=== PATIENT | female | born 1930 | race Hispanic/Latino ===

== ENCOUNTER 2017-12-18 11:33 | Inpatient (IN) | payer MEDICARE ==
[2017-12-18] MEDS ORDERED: NACL 0.9% 500 ML 500 ML IV ONE ×2 (12:01→12:57)
[2017-12-18] MEDS ORDERED: ROCEPHIN/NS 1 GM/50 ML 1 GM/50 ML BAG IV ONE (12:01)
[2017-12-18 12:23] LABS: Hematocrit 38.8 % (30.3-42.9); Hemoglobin 12.9 gm/dl (10.1-14.3); Mean Corpuscular HGB Conc 33 % (30-34); Mean Corpuscular Hemoglobin 30 pg (28-32); Mean Corpuscular Volume 91 fl (79-97); Platelet Count 460 K/mm3 (140-440); Red Blood Count 4.25 M/mm3 (3.65-5.03)
[2017-12-18 12:39] LABS: Alanine Aminotransferase 23 units/L (7-56); BUN/Creatinine Ratio 38; Bilirubin,Direct 0.2 mg/dL (0-0.2); Blood Urea Nitrogen 23 mg/dL (7-17); Hemolysis Index 11
--- NOTE | 2017-12-18 12:41 | XRay Report ---
PORTABLE CHEST INDICATION: Fever, sepsis. COMPARISON: None similar at this institution. FINDINGS: Portable, frontal chest radiograph demonstrates right more than left lower lung opacities/infiltrates, partly obscuring the heart borders. Grossly normal heart size and mediastinal contours. No large pleural effusions. Biapical scarring/pleural thickening. EKG leads. Demineralized bones. CONCLUSION: Right more than left basilar infiltrates/pneumonias, as described. Please also correlate clinically and with prior relevant imaging, if available, to better assess its chronicity/etiology. Thank you for the opportunity to participate in this patient's care.
[2017-12-18] MEDS ORDERED: VANCOMYCIN PHARMACY TO DOSE IV SCH (13:00)
[2017-12-18] MEDS ORDERED: ZOSYN/NS 4.5GM/100ML 4.5 GM/100 ML VIAL IV ONE (13:00)
[2017-12-18] MEDS ORDERED: cefTRIAXone 1 GM in NACL 0.9% 20 ML IV ONE (13:30)
[2017-12-18 13:40] LABS: INR 1.26 (0.87-1.13)
[2017-12-18] MEDS ORDERED: XOPENEX IH ONE (13:54)
[2017-12-18] MEDS ORDERED: VANCOMYCIN/0.45 NS 1 GM/250 ML 1 GM/250 ML BAG IV ONE (14:00)
[2017-12-18 14:05] LABS: Band Neutrophils # (Manual) 1.9 K/mm3; Basophils % (Manual) 0 % (0.0-1.8); Eosinophils % (Manual) 0 % (0.0-4.3); Total Cells Counted 100
[2017-12-18 14:06] LABS: RBC Morphology Normal
[2017-12-18] MEDS ORDERED: NACL 0.9% 1000 ML 1,000 ML IV ONE (14:07)
--- NOTE | 2017-12-18 14:14 | Emergency Department Report ---
ED General Adult HPI - General Chief complaint: Dyspnea/Respdistress Stated complaint: KELLY Time Seen by Provider: 12/18/17 11:56 Source: patient, EMS Mode of arrival: Stretcher Limitations: No Limitations - History of Present Illness Initial comments: Patient states that she was just released from a [facility] on Saturday after one week treatment for pneumonia. She states "my pneumonia and never got any better". She states that she feels very weak and short of breath and she is continuing to cough. She denies chest pain pressure or tightness. She denies leg pain or significant swelling. She states that she is not been told in the past that she has a history of pulmonary embolism, DVT or congestive heart failure. Apparently the patient was found in respiratory distress by medics. They presume that she was in SVT when her prehospital rhythm strips actually demonstrated multifocal atrial tachycardia. They gave her 6 mg of adenosine followed by 12 mg. This did not resolve her tachycardia. She presented to the emergency department and persistent multifocal atrial tachycardia. Her 12-lead EKG her rhythm looks like possible atrial fibrillation. However on her monitor simultaneously she was seen to have a reasonably good P-wave morphology. -: Gradual, week(s) Consistency: constant (denies pain breathing difficulty and cough) Associated Symptoms: cough, shortness of breath, weakness. denies: chest pain, diaphoresis, fever/chills, headaches, syncope Treatments Prior to Arrival: none - Related Data Allergies Allergy/AdvReac Type Severity Reaction Status Date / Time No Known Allergies Allergy Unverified 12/18/17 12:07 ED Review of Systems ROS: Stated complaint: KELLY Other details as noted in HPI Constitutional: weakness Respiratory: cough, shortness of breath Cardiovascular: dyspnea on exertion. denies: chest pain Endocrine: no symptoms reported Gastrointestinal: denies: abdominal pain, nausea Genitourinary: denies: urgency, dysuria Musculoskeletal: denies: back pain, joint swelling Skin: denies: rash, lesions Neurological: denies: headache, weakness, numbness Psychiatric: denies: anxiety, depression Hematological/Lymphatic: denies: easy bleeding, easy bruising ED Past Medical Hx - Past Medical History Previous Medical History?: Yes Hx Hypertension: Yes Hx COPD: Yes Additional medical history: Recent inpatient treatment for pneumonia. Apparently the patient's family told nursing that she has had a prior history of C. difficile but not recently after IV antibiotics. - Social History Smoking Status: Never Smoker Substance Use Type: None ED Physical Exam - General Limitations: No Limitations General appearance: in distress (tachypnea,) - Head Head exam: Present: atraumatic, normocephalic - Eye Eye exam: Present: normal appearance. Absent: scleral icterus - ENT ENT exam: Present: mucous membranes dry - Neck Neck exam: Present: normal inspection. Absent: tenderness, meningismus - Respiratory Respiratory exam: Present: respiratory distress, rhonchi (bilaterally). Absent : accessory muscle use - Cardiovascular Cardiovascular Exam: Present: tachycardia, irregular rhythm. Absent: systolic murmur, diastolic murmur, rubs, gallop - GI/Abdominal GI/Abdominal exam: Present: soft, normal bowel sounds. Absent: distended, tenderness, guarding, rebound, rigid - Extremities Exam Extremities exam: Present: normal capillary refill, other (1+ bilateral pretibial edema). Absent: calf tenderness - Back Exam Back exam: Present: normal inspection. Absent: CVA tenderness (R), CVA tenderness (L) - Neurological Exam Neurological exam: Present: alert, oriented X3, CN II-XII intact. Absent: motor sensory deficit - Psychiatric Psychiatric exam: Present: normal affect, normal mood - Skin Skin exam: Present: warm, dry, intact, normal color. Absent: rash ED Course Vital Signs 12/18/17 12/18/17 12/18/17 11:48 11:50 12:00 Pulse Rate 180 H 188 H Respiratory 48 H 47 H Rate Blood Pressure 133/73 O2 Sat by Pulse 91 89 91 Oximetry 12/18/17 12/18/17 12/18/17 12:10 12:20 12:30 Pulse Rate 146 H 155 H 132 H Respiratory 53 H 47 H 38 H Rate Blood Pressure 115/72 157/51 157/51 O2 Sat by Pulse 91 93 93 Oximetry 12/18/17 12/18/17 12/18/17 12:40 12:50 13:00 Pulse Rate 135 H 130 H 136 H Respiratory 37 H 40 H 49 H Rate Blood Pressure 140/92 153/56 153/56 O2 Sat by Pulse 92 92 94 Oximetry 12/18/17 12/18/17 12/18/17 13:10 13:20 13:30 Pulse Rate 133 H 131 H 146 H Respiratory 51 H 48 H 50 H Rate Blood Pressure 150/58 157/67 150/58 O2 Sat by Pulse 95 97 97 Oximetry 12/18/17 13:40 Pulse Rate 130 H Respiratory 39 H Rate Blood Pressure 146/55 O2 Sat by Pulse 96 Oximetry - Reevaluation(s) Reevaluation #1: The patient was placed on a sepsis pathway immediately after my initial encounter. She is presumed to have healthcare associated pneumonia given 3 antibiotics. Her heart rate is improving with 2 boluses of IV fluids. Her heart is found to be multifocal atrial tachycardia. Her chest x-ray showed right middle right lower and probably left lower lobe pneumonia. She is maintaining her pulse oximetry on nasal cannula. However she is quite tachypnea. In consideration of this I am going to give her a Xopenex and see if there is some benefit. We will check an ABG. I spoke to Dr. Bell is a solutions architect consultant and style advisor concerning the possibility of intensive care placement which looks to be necessary at this time. Dr. Resendiz has arrived in the emergency department and should be attending the patient. 12/18/17 14:19 Reevaluation #2: Patient's arterial blood gas shows a decreased PCO2 and a PO2 in the mid 60s per respiratory. I advised increasing the FiO2. I believe the patient will require nocturnal BiPAP. I spoke to Dr. Bell concerning this and Dr. Resendiz the hospitalist who is admitting this patient. 12/18/17 15:04 ED Medical Decision Making - Lab Data Result diagrams: 12/18/17 12:10 12/18/17 12:10 Laboratory Results - last 24 hr 12/18/17 12/18/17 12/18/17 12:10 12:10 12:10 WBC 24.0 H RBC 4.25 Hgb 12.9 Hct 38.8 MCV 91 MCH 30 MCHC 33 RDW 13.0 L Plt Count 460 H Add Manual Diff Complete Total Counted 100 Seg Neuts % (Manual) 84.0 H Band Neutrophils % 8.0 Lymphocytes % (Manual) 2.0 L Reactive Lymphs % (Man) 0 Monocytes % (Manual) 6.0 Eosinophils % (Manual) 0 Basophils % (Manual) 0 Metamyelocytes % 0 Myelocytes % 0 Promyelocytes % 0 Blast Cells % 0 Nucleated RBC % Not Reportable Seg Neutrophils # Man 20.2 H Band Neutrophils # 1.9 Lymphocytes # (Manual) 0.5 L Abs React Lymphs (Man) 0.0 Monocytes # (Manual) 1.4 H Eosinophils # (Manual) 0.0 Basophils # (Manual) 0.0 Metamyelocytes # 0.0 Myelocytes # 0.0 Promyelocytes # 0.0 Blast Cells # 0.0 WBC Morphology Not Reportable Hypersegmented Neuts Not Reportable Hyposegmented Neuts Not Reportable Hypogranular Neuts Not Reportable Smudge Cells Not Reportable Toxic Granulation Not Reportable Toxic Vacuolation Not Reportable Dohle Bodies Not Reportable Pelger-Huet Anomaly Not Reportable Andrei Rods Not Reportable Platelet Estimate Not Reportable Clumped Platelets Not Reportable Plt Clumps, EDTA Not Reportable Large Platelets Not Reportable Giant Platelets Not Reportable Platelet Satelliting Not Reportable Plt Morphology Comment Not Reportable RBC Morphology Normal Dimorphic RBCs Not Reportable Polychromasia Not Reportable Hypochromasia Not Reportable Poikilocytosis Not Reportable Anisocytosis Not Reportable Microcytosis Not Reportable Macrocytosis Not Reportable Spherocytes Not Reportable Pappenheimer Bodies Not Reportable Sickle Cells Not Reportable Target Cells Not Reportable Tear Drop Cells Not Reportable Ovalocytes Not Reportable Helmet Cells Not Reportable [place] Bodies Not Reportable Printer Rings Not Reportable [place] Cells Not Reportable Bite Cells Not Reportable Crenated Cell Not Reportable Elliptocytes Not Reportable Acanthocytes (Spur) Not Reportable Rouleaux Not Reportable Hemoglobin C Crystals Not Reportable Schistocytes Not Reportable Malaria parasites Not Reportable Chriss Bodies Not Reportable Hem Pathologist Commnt No PT INR VBG pH Sodium 142 Potassium 3.9 Chloride 102.0 Carbon Dioxide 24 Anion Gap 20 BUN 23 H Creatinine 0.6 L Estimated GFR > 60 BUN/Creatinine Ratio 38 Glucose 140 H Lactic Acid 2.20 H* Calcium 8.0 L Magnesium Total Bilirubin 0.50 Direct Bilirubin 0.2 Indirect Bilirubin 0.3 AST 17 ALT 23 Alkaline Phosphatase 75 Total Creatine Kinase CK-MB (CK-2) CK-MB (CK-2) Rel Index Troponin T < 0.010 NT-Pro-B Natriuret Pep Total Protein 5.8 L Albumin 3.0 L Albumin/Globulin Ratio 1.1 Blood Type Antibody Screen 12/18/17 12/18/17 12/18/17 12:10 12:10 12:10 WBC RBC Hgb Hct MCV MCH MCHC RDW Plt Count Add Manual Diff Total Counted Seg Neuts % (Manual) Band Neutrophils % Lymphocytes % (Manual) Reactive Lymphs % (Man) Monocytes % (Manual) Eosinophils % (Manual) Basophils % (Manual) Metamyelocytes % Myelocytes % Promyelocytes % Blast Cells % Nucleated RBC % Seg Neutrophils # Man Band Neutrophils # Lymphocytes # (Manual) Abs React Lymphs (Man) Monocytes # (Manual) Eosinophils # (Manual) Basophils # (Manual) Metamyelocytes # Myelocytes # Promyelocytes # Blast Cells # WBC Morphology Hypersegmented Neuts Hyposegmented Neuts Hypogranular Neuts Smudge Cells Toxic Granulation Toxic Vacuolation Dohle Bodies Pelger-Huet Anomaly Andrei Rods Platelet Estimate Clumped Platelets Plt Clumps, EDTA Large Platelets Giant Platelets Platelet Satelliting Plt Morphology Comment RBC Morphology Dimorphic RBCs Polychromasia Hypochromasia Poikilocytosis Anisocytosis Microcytosis Macrocytosis Spherocytes Pappenheimer Bodies Sickle Cells Target Cells Tear Drop Cells Ovalocytes Helmet Cells [place] Bodies Printer Rings [place] Cells Bite Cells Crenated Cell Elliptocytes Acanthocytes (Spur) Rouleaux Hemoglobin C Crystals Schistocytes Malaria parasites Chriss Bodies Hem Pathologist Commnt PT 16.5 H INR 1.26 H VBG pH Sodium Potassium Chloride Carbon Dioxide Anion Gap BUN Creatinine Estimated GFR BUN/Creatinine Ratio Glucose Lactic Acid Calcium Magnesium 1.60 L Total Bilirubin Direct Bilirubin Indirect Bilirubin AST ALT Alkaline Phosphatase Total Creatine Kinase 21 L CK-MB (CK-2) 2.0 CK-MB (CK-2) Rel Index 9.5 H Troponin T NT-Pro-B Natriuret Pep 1948 H Total Protein Albumin Albumin/Globulin Ratio Blood Type Antibody Screen 12/18/17 12/18/17 12/18/17 12:10 12:10 13:08 WBC RBC Hgb Hct MCV MCH MCHC RDW Plt Count Add Manual Diff Total Counted Seg Neuts % (Manual) Band Neutrophils % Lymphocytes % (Manual) Reactive Lymphs % (Man) Monocytes % (Manual) Eosinophils % (Manual) Basophils % (Manual) Metamyelocytes % Myelocytes % Promyelocytes % Blast Cells % Nucleated RBC % Seg Neutrophils # Man Band Neutrophils # Lymphocytes # (Manual) Abs React Lymphs (Man) Monocytes # (Manual) Eosinophils # (Manual) Basophils # (Manual) Metamyelocytes # Myelocytes # Promyelocytes # Blast Cells # WBC Morphology Hypersegmented Neuts Hyposegmented Neuts Hypogranular Neuts Smudge Cells Toxic Granulation Toxic Vacuolation Dohle Bodies Pelger-Huet Anomaly Andrei Rods Platelet Estimate Clumped Platelets Plt Clumps, EDTA Large Platelets Giant Platelets Platelet Satelliting Plt Morphology Comment RBC Morphology Dimorphic RBCs Polychromasia Hypochromasia Poikilocytosis Anisocytosis Microcytosis Macrocytosis Spherocytes Pappenheimer Bodies Sickle Cells Target Cells Tear Drop Cells Ovalocytes Helmet Cells [place] Bodies Printer Rings [place] Cells Bite Cells Crenated Cell Elliptocytes Acanthocytes (Spur) Rouleaux Hemoglobin C Crystals Schistocytes Malaria parasites Chriss Bodies Hem Pathologist Commnt PT INR VBG pH 7.534 H Sodium Potassium Chloride Carbon Dioxide Anion Gap BUN Creatinine Estimated GFR BUN/Creatinine Ratio Glucose Lactic Acid 1.50 Calcium Magnesium Total Bilirubin Direct Bilirubin Indirect Bilirubin AST ALT Alkaline Phosphatase Total Creatine Kinase CK-MB (CK-2) CK-MB (CK-2) Rel Index Troponin T NT-Pro-B Natriuret Pep Total Protein Albumin Albumin/Globulin Ratio Blood Type O POSITIVE Antibody Screen Negative - EKG Data -: EKG Interpreted by Me Rate: tachycardia - EKG Data Interpretation: other - Radiology Data interpreted by me: Chest x-ray shows infiltrates at least in the right middle and right lower lobe probably left lower lobe as well consistent with multilobar pneumonia Critical Care Time: Yes Critical care time in (mins) excluding proc time.: 60 Critical care attestation.: If time is entered above; I have spent that time in minutes in the direct care of this critically ill patient, excluding procedure time. ED Disposition Clinical Impression: Respiratory distress Sepsis Qualifiers: Sepsis type: sepsis due to unspecified organism Qualified Code(s): A41.9 - Sepsis, unspecified organism Pneumonia Qualifiers: Pneumonia type: due to unspecified organism Laterality: bilateral Lung location : lower lobe of lung Qualified Code(s): J18.9 - Pneumonia, unspecified organism Disposition: OP ADMIT IP TO THIS HOSP Is pt being admited?: Yes Does the pt Need Aspirin: Yes Condition: Stable Instructions: Bacterial Pneumonia (ED) Referrals: PRIMARY CARE, [Primary Care Provider] - 3-5 Days Time of Disposition: 15:06
[2017-12-18] MEDS ORDERED: BABY ASPIRIN PO ONE (15:06)
[2017-12-18 18:51] LABS: Bilirubin,Urine NEG (Negative); Blood,Urine NEG (Negative); Color,Urine Yellow (Yellow); Mucus,Urine FEW /HPF; Urobilinogen,Urine < 2.0 mg/dL (<2.0)
--- NOTE | 2017-12-18 23:39 | Event Note ---
Date: 12/18/17 See dictated H/P in reports Acute resp failure Sinus Tach/SVT Bilateral pneumonia HTN Hypothyroidism hx OF PE
[2017-12-19] MEDS ORDERED: ALUM-MAG HYDROX-SIMETH 200-200-20MG/5ML PO PRN (04:18)
[2017-12-19] MEDS ORDERED: DULCOLAX PR PRN (04:18)
[2017-12-19] MEDS ORDERED: MILK OF MAGNESIA PO PRN (04:18)
[2017-12-19] MEDS ORDERED: MORPHINE IV PRN (04:19)
[2017-12-19] MEDS ORDERED: PERCOCET 5/325 PO PRN (04:19)
[2017-12-19] MEDS ORDERED: DILAUDID IV PRN (04:19)
[2017-12-19] MEDS ORDERED: XANAX PO PRN (04:19)
[2017-12-19] MEDS ORDERED: DUONEB *Not for PRN Use IH (04:54)
[2017-12-19] MEDS ORDERED: PROVENTIL IH PRN (04:55)
[2017-12-19] MEDS ORDERED: VANCOMYCIN/0.45 NS 1 GM/250 ML 1 GM/250 ML BAG IV ONE (05:00)
[2017-12-19] MEDS ORDERED: VANCOMYCIN PHARMACY TO DOSE IV SCH (05:00)
[2017-12-19] MEDS ORDERED: NACL 0.9% 1000 ML 1,000 ML IV SCH (05:00)
[2017-12-19 05:11] LABS: Alanine Aminotransferase 18 units/L (7-56); Albumin 2.4 g/dL (3.9-5); BUN/Creatinine Ratio 23; Blood Urea Nitrogen 16 mg/dL (7-17); Calcium 7.8 mg/dL (8.4-10.2); Hemolysis Index 4
[2017-12-19] MEDS ORDERED: NACL 0.9% 1000 ML 1,000 ML ONE (05:13)
[2017-12-19 05:24] LABS: Hematocrit 34.8 % (30.3-42.9); Hemoglobin 11.4 gm/dl (10.1-14.3); Mean Corpuscular HGB Conc 33 % (30-34); Mean Corpuscular Hemoglobin 30 pg (28-32); Mean Corpuscular Volume 90 fl (79-97); Platelet Count 342 K/mm3 (140-440); Red Blood Count 3.86 M/mm3 (3.65-5.03); Red Cell Distribution Width 13.2 % (13.2-15.2)
[2017-12-19] MEDS: SYNTHROID PO SCH (06:54)
[2017-12-19] MEDS: ZOSYN/NS 4.5GM/100ML 4.5 GM/100 ML VIAL IV SCH ×3 (06:55→22:35)
--- NOTE | 2017-12-19 07:21 | History and Physical Report ---
CHIEF COMPLAINT: Fever, shortness of breath and feeling weak for the last 8-10 days. HISTORY OF PRESENT ILLNESS: An 87-year-old female with recent history of pneumonia, admitted to [facility] from last Saturday to this Saturday for 1 week for pneumonia. The patient was treated for pneumonia for 1 week since 12/09/2017 to 12/16/2017. The patient was discharged on 12/16/2017. The patient continued to do poorly at home and cough present productive of mucoid to yellow sputum. Also, shortness of breath and low-grade fever. Hence, the patient came back to the Emergency Room at [facility]. The patient was also found to be in tachycardia SVT. They gave her adenosine 6 mg which did not do anything to the rhythm. PAST MEDICAL HISTORY: Significant for hypertension, COPD, recent inpatient treatment for pneumonia for 1-week duration, and C. difficile infection recently. PAST SURGICAL HISTORY: Not available. SOCIAL HISTORY: Does not smoke. No alcohol, no recreational drugs. FAMILY HISTORY: Hypertension. REVIEW OF SYSTEMS: GENERAL: Malaise and anorexia present. Loss of appetite present. Feels weak. HEENT: No sore throat, no postnasal drip. CARDIOVASCULAR AND RESPIRATORY: Wheezing and cough present. Also, chest pain on coughing. GASTROINTESTINAL: No nausea, no vomiting, no diarrhea. No GI bleed. GENITOURINARY: No dysuria, no flank pain. MUSCULOSKELETAL: No joint pains. CENTRAL NERVOUS SYSTEM: No syncope, no seizures. ENDOCRINE: No cold intolerance or hot intolerance. No polyphagia or dysphagia. A 14-point review of systems done. PHYSICAL EXAMINATION: GENERAL: Elderly female lying in bed comfortably. VITAL SIGNS: Temperature 98-99. Heart rate is in the 120s to 130s, has come down to 100 during my examination. Blood pressure is 168/66, came down to 147/42, respiratory rate is 20, sats are 95%. HEENT: Unremarkable. Pupils equal and reactive. NECK: Supple, no lymphadenopathy, no thyromegaly. LUNGS: Clear to auscultation and percussion. Good air entry. CARDIOVASCULAR: S1, S2 heard. No gallop, no murmur, no rub. Apical impulse in left fifth intercostal space in the midclavicular line. ABDOMEN: Soft and benign. No hepatosplenomegaly. No guarding, no rigidity. Hernial orifices were normal. EXTREMITIES: Good pedal pulses. No pedal edema. CENTRAL NERVOUS SYSTEM: Alert and oriented x 4, nonfocal exam. SKIN: Normal. LABORATORY DATA: Significant for white count of 24,000, hemoglobin of 12.9, hematocrit of 38.8, platelet count of 460,000. Protime is 16.5, INR is 1.26. ABG significant for pH of 7.487, pCO2 of 32.6, pO2 of 65, of 7.53. Sodium of 142, potassium of 3.9, chloride of 102, bicarbonate of 24, BUN and creatinine is 23 and 0.6, glucose is 140. Lactic acid is 1.5, calcium is 8.0, magnesium is 1.6, total bilirubin 0.5, direct bilirubin 0.2, indirect bilirubin 0.3, AST is 17, ALT is 23. CK is 21. BNP is 1948, total protein is 5.8, albumin is 3.0. Urine is negative. Chest x-ray shows bilateral basilar infiltrates, right more than left. EKG, sinus tachycardia, heart rate of 130 per minute. ASSESSMENT AND PLAN: 1. Sinus tachycardia secondary to sepsis and pneumonia. 2. Acute respiratory failure. The patient on BiPAP. Continue DuoNeb and Solu-Medrol and broad spectrum antibiotics in the form of Zosyn and vancomycin. 3. Bilateral pneumonia. Same as above. DuoNeb and IV Zosyn, vancomycin, Solu-Medrol. 4. Hypertension. Continue diltiazem and lisinopril. 5. Hyperlipidemia. Continue statin. 6. Hypothyroidism. Continue levothyroxine. 7. History of pulmonary embolism. Continue Eliquis 2.5 mg p.o. b.i.d. 8. Deep venous thrombosis prophylaxis. Continue apixaban. No Lovenox at this point. PROGNOSIS: Fair. CRITICAL CARE STATEMENT: The high probability of a clinically significant sudden or life-threatening deterioration of pulmonary, cardiac, and renal systems required my full and direct attention, intervention, and personal management. The aggregate critical care time was 35 minutes. This time was in addition to time spent performing reported procedures but includes the followin. Data review and interpretation. 2. Patient assessment and monitoring of vital signs. 3. Documentation. 4. Medication orders and management. STEPHANIE: 12/19/2017 04:36 JOB# [id number] MEGA/TITI
[2017-12-19 08:02] LABS: Band Neutrophils # (Manual) 0.2 K/mm3; Basophils % (Manual) 0 % (0.0-1.8); Eosinophils % (Manual) 0 % (0.0-4.3); RBC Morphology Normal; Total Cells Counted 100
[2017-12-19] MEDS ORDERED: LOPRESSOR ONE (08:49)
[2017-12-19] MEDS ORDERED: ZESTRIL ONE (08:50)
[2017-12-19] MEDS: CARDIZEM CD PO SCH (09:42)
[2017-12-19] MEDS: ZESTRIL PO SCH (09:43)
[2017-12-19] MEDS: LOPRESSOR PO SCH ×2 (09:43→22:33)
[2017-12-19] MEDS ORDERED: LASIX IV ONE (10:02)
--- NOTE | 2017-12-19 10:44 | Consultation ---
History of Present Illness Consult date: 12/19/17 Requesting physician: GAVIOTA VILLEDA Reason for consult: hypoxemia, pneumonia History of present illness: 87 y/o female, recently discharge from [facility] with a diagnosis of pneumonia on this past Saturday. Per daughter at bedside, patient woke up on Saturday morning in Afib with RVR and worsening shortness of breath. Transported to the ED via EMS. When I spoke to ED, there was no mention of Afib and elevated rate. Patient was started on oxygen and given IV abx. Currently, here in the ICU, rate is controlled and appears to be in sinus. Patient takes dilt and eliquis at home. Per patient pneumonia was in the right lower lobe at [place], which is consistent with here. Pt states that she feels better. Currently on 40% ventimask and stable. Past History Past Medical History: atrial fib, COPD (but per patient, life long nonsmoker), hypertension, hypothyroidism Past Surgical History: Other (none told) Social history: no significant social history Medications and Allergies Allergies Allergy/AdvReac Type Severity Reaction Status Date / Time No Known Allergies Allergy Unverified 12/18/17 12:07 Home Medications Medication Instructions Recorded Confirmed Last Taken Type Apixaban [Eliquis] 2.5 mg PO BID 12/18/17 12/18/17 Unknown History Diltiazem HCl [Diltiazem 24Hr ER] 120 mg PO QDAY 12/18/17 12/18/17 Unknown History Levothyroxine [Synthroid] 50 mcg PO QDAY 12/18/17 12/18/17 Unknown History Lisinopril [Prinivil] 5 mg PO QDAY 12/18/17 12/18/17 Unknown History Metoprolol [Lopressor] 100 mg PO BID 12/18/17 12/18/17 Unknown History Rosuvastatin Calcium [Crestor] 10 mg PO 2XW 12/18/17 12/18/17 Unknown History Active Meds: Active Medications Al Hydrox/Mg Hydrox/Simethicone (Alum-Mag Hydrox-Simeth [id number]/5ml) 30 ml PO Q4H PRN PRN Reason: Indigestion Albuterol (Proventil) 2.5 mg IH Q3HRT PRN PRN Reason: Shortness Of Breath Albuterol/Ipratropium (Duoneb *Not For Prn Use*) 1 ampul IH QIDRT [facility] Alprazolam (Xanax) 0.25 mg PO Q8H PRN PRN Reason: Anxiety Apixaban (Eliquis) 2.5 mg PO BID [facility] PRN Reason: Protocol Atorvastatin Calcium (Lipitor) 20 mg PO Th [facility] Atorvastatin Calcium (Lipitor) 20 mg PO [place] [facility] Bisacodyl (Dulcolax) 10 mg [place] QDAY PRN PRN Reason: constipation unrelieved by MOM Diltiazem HCl (Cardizem Cd) 120 mg PO QDAY [facility] Last Admin: 12/19/17 09:42 Dose: 120 mg Hydromorphone HCl (Dilaudid) 0.5 mg IV Q3H PRN PRN Reason: Pain , Severe (7-10) Piperacillin Sod/Tazobactam Sod (Zosyn/Ns 4.5gm/100ml) 4.5 gm in 100 mls @ 200 mls/hr IV Q8HR [facility] PRN Reason: Protocol Last Admin: 12/19/17 06:55 Dose: 200 mls/hr Vancomycin HCl 750 mg/ Sodium (Chloride) 257.5 mls @ 166.667 mls/hr IV Q12H [facility] Levothyroxine Sodium (Synthroid) 50 mcg PO QDAY@0600 [facility] Last Admin: 12/19/17 06:54 Dose: 50 mcg Lisinopril (Zestril) 5 mg PO QDAY [facility] Last Admin: 12/19/17 09:43 Dose: 5 mg Magnesium Hydroxide (Milk Of Magnesia) 30 ml PO Q4H PRN PRN Reason: Constipation Methylprednisolone Sodium Succinate (Solu-Medrol) 60 mg IV Q8HR [facility] Last Admin: 12/19/17 06:46 Dose: 60 mg Metoprolol Tartrate (Lopressor) 100 mg PO BID [facility] Last Admin: 12/19/17 09:43 Dose: 100 mg Morphine Sulfate (Morphine) 4 mg IV Q4H PRN PRN Reason: Pain , Severe (7-10) Oxycodone/Acetaminophen (Percocet 5/325) 1 tab PO Q6H PRN PRN Reason: Pain, Moderate (4-6) Vancomycin HCl (Vancomycin Pharmacy To Dose) 1 each IV PKCONSULT [facility] PRN Reason: Protocol Review of Systems All systems: negative Physical Examination Vital signs: Vital Signs Pulse Ox 91 12/18/17 11:48 General appearance: no acute distress, alert Eyes: non-icteric ENT: oropharynx moist Neck: supple Effort: mildly labored Ascultation: Bilateral: rales, rhonchi Percussion: Bilateral: not dull Tactile fremitus: Bilateral: normal Cardiovascular: regular rate and rhythm Gastrointestinal: normoactive bowel sounds, soft, non-tender Extremities: edema Musculoskeletal: no deformities normal mental status, non-focal exam mood appropriate, affect normal Results - Laboratory Findings CBC and BMP: 12/19/17 04:36 12/19/17 04:36 ABG POC ABG pH 7.487 (7.35-7.45) H 12/18/17 14:30 POC ABG pCO2 32.6 (35-45) L 12/18/17 14:30 POC ABG pO2 65 (80-105) L 12/18/17 14:30 POC ABG HCO3 24.7 12/18/17 14:30 POC ABG Total CO2 26 12/18/17 14:30 POC ABG O2 Sat 94 12/18/17 14:30 PT/INR, D-dimer PT 16.5 Sec. (12.2-14.9) H 12/18/17 12:10 INR 1.26 (0.87-1.13) H 12/18/17 12:10 Abnormal lab findings: Abnormal Labs 12/18/17 12/18/17 12/18/17 12:10 12:10 12:10 WBC 24.0 H RDW 13.0 L Plt Count 460 H Seg Neuts % (Manual) 84.0 H Lymphocytes % (Manual) 2.0 L Seg Neutrophils # Man 20.2 H Lymphocytes # (Manual) 0.5 L Monocytes # (Manual) 1.4 H PT INR POC ABG pH POC ABG pCO2 POC ABG pO2 VBG pH BUN 23 H Creatinine 0.6 L Glucose 140 H Lactic Acid 2.20 H* Calcium 8.0 L Magnesium Total Creatine Kinase CK-MB (CK-2) Rel Index NT-Pro-B Natriuret Pep Total Protein 5.8 L Albumin 3.0 L 12/18/17 12/18/17 12/18/17 12:10 12:10 12:10 WBC RDW Plt Count Seg Neuts % (Manual) Lymphocytes % (Manual) Seg Neutrophils # Man Lymphocytes # (Manual) Monocytes # (Manual) PT 16.5 H INR 1.26 H POC ABG pH POC ABG pCO2 POC ABG pO2 VBG pH BUN Creatinine Glucose Lactic Acid Calcium Magnesium 1.60 L Total Creatine Kinase 21 L CK-MB (CK-2) Rel Index 9.5 H NT-Pro-B Natriuret Pep 1948 H Total Protein Albumin 12/18/17 12/18/17 12/19/17 12:10 14:30 04:36 WBC 20.3 H RDW Plt Count Seg Neuts % (Manual) 90.0 H Lymphocytes % (Manual) 5.0 L Seg Neutrophils # Man 18.3 H Lymphocytes # (Manual) 1.0 L Monocytes # (Manual) PT INR POC ABG pH 7.487 H POC ABG pCO2 32.6 L POC ABG pO2 65 L VBG pH 7.534 H BUN Creatinine Glucose Lactic Acid Calcium Magnesium Total Creatine Kinase CK-MB (CK-2) Rel Index NT-Pro-B Natriuret Pep Total Protein Albumin 12/19/17 04:36 WBC RDW Plt Count Seg Neuts % (Manual) Lymphocytes % (Manual) Seg Neutrophils # Man Lymphocytes # (Manual) Monocytes # (Manual) PT INR POC ABG pH POC ABG pCO2 POC ABG pO2 VBG pH BUN Creatinine Glucose Lactic Acid Calcium 7.8 L Magnesium Total Creatine Kinase CK-MB (CK-2) Rel Index NT-Pro-B Natriuret Pep Total Protein 6.2 L Albumin 2.4 L - Diagnostic Findings Chest x-ray: image reviewed (right lower lobe infiltrate, chronic appearing changes throughout the rest of the lung) Assessment and Plan 87 y/o female with afib with RVR, subsequent fluid overload with right lower lobe infiltrate, residual pneumonia from prior diagnosis. 1. Lasix 20mg IV x1 2. Place n[facility] 3. Obtain sputum culture 4. Agree with broad spec abx therapy given recent hospital stay 5. Suggest a consult to [facility] heart so that records can be reviewed as home med list shows BB and CCB for rate control 6. Anticoagulation 7. Stable for transfer to [facility] if tolerates lasix therapy with no issues
[2017-12-19] MEDS: DUONEB *Not for PRN Use IH SCH ×4 (11:13→19:27)
[2017-12-19] MEDS: ELIQUIS PO SCH ×2 (11:47→22:20)
[2017-12-19] MEDS ORDERED: VANCOMYCIN/0.45 NS 1 GM/250 ML 1 GM/250 ML BAG IV SCH (14:00)
[2017-12-19] MEDS ORDERED: VANCOMYCIN IV SCH (18:00)
[2017-12-19] MEDS ORDERED: NACL 0.45% IV SCH (18:00)
--- NOTE | 2017-12-19 18:34 | Progress Note ---
Assessment and Plan Assessment and plan: --A. fib with rapid ventricular rate; on admission Noted controlled, continue Cardizem, beta blockers, Eliquis Cardiology evaluation --Right lower lobe pneumonia; continue current antibiotics, follow cultures Pulmonary following, probably residual pneumonia from recent illness --Hypertension; moderate control, continue current antihypertensives and when necessary medications --Dyslipidemia; stable on lipid-lowering medications --History of hypothyroidism; continue Synthroid, --Full CODE STATUS --DVT prophylaxis patient is already on Eliquis Closely monitor the patient, if stable next couple of hrs, will transfer out of ICU Plan of care is reviewed with the patient, family members at the bedside and her nurse I also discussed the case with laborer airport maintenance Dr. Bell Critical care time 35 minutes History Interval history: Patient seen and evaluated medical records reviewed Patient's heart rate is within normal limits Denies chest pain shortness of breath and cough Denies palpitations Patient is comfortable alert and oriented 3 Vital signs reviewed Hospitalist Physical - Constitutional Vitals: Temp Pulse Resp BP Pulse Ox 63 20 152/93 89 12/19/17 15:30 12/19/17 15:30 12/19/17 10:42 12/19/17 09:01 General appearance: Present: no acute distress, well-nourished - EENT Eyes: Present: PERRL, EOM intact - Neck Neck: Present: supple, normal ROM - Respiratory Respiratory effort: normal Respiratory: bilateral: diminished, negative: rales, rhonchi, wheezing - Cardiovascular Rhythm: irregularly irregular Heart Sounds: Present: S1 & S2 - Extremities Extremities: no ischemia, No edema - Abdominal General gastrointestinal: soft, non-tender, non-distended, normal bowel sounds - Integumentary Integumentary: Present: clear, warm - Psychiatric Psychiatric: appropriate mood/affect, cooperative - Neurologic Neurologic: CNII-XII intact, moves all extremities Results - Labs CBC & Chem 7: 12/19/17 04:36 12/19/17 04:36 Labs: Laboratory Last Values WBC 20.3 K/mm3 (4.5-11.0) H 12/19/17 04:36 RBC 3.86 M/mm3 (3.65-5.03) 12/19/17 04:36 Hgb 11.4 gm/dl (10.1-14.3) 12/19/17 04:36 Hct 34.8 % (30.3-42.9) 12/19/17 04:36 MCV 90 fl (79-97) 12/19/17 04:36 MCH 30 pg (28-32) 12/19/17 04:36 MCHC 33 % (30-34) 12/19/17 04:36 RDW 13.2 % (13.2-15.2) 12/19/17 04:36 Plt Count 342 K/mm3 (140-440) 12/19/17 04:36 Add Manual Diff Complete 12/19/17 04:36 Total Counted 100 12/19/17 04:36 Seg Neuts % (Manual) 90.0 % (40.0-70.0) H 12/19/17 04:36 Band Neutrophils % 1.0 % 12/19/17 04:36 Lymphocytes % (Manual) 5.0 % (13.4-35.0) L 12/19/17 04:36 Reactive Lymphs % (Man) 0 % 12/19/17 04:36 Monocytes % (Manual) 4.0 % (0.0-7.3) 12/19/17 04:36 Eosinophils % (Manual) 0 % (0.0-4.3) 12/19/17 04:36 Basophils % (Manual) 0 % (0.0-1.8) 12/19/17 04:36 Metamyelocytes % 0 % 12/19/17 04:36 Myelocytes % 0 % 12/19/17 04:36 Promyelocytes % 0 % 12/19/17 04:36 Blast Cells % 0 % 12/19/17 04:36 Nucleated RBC % Not Reportable 12/19/17 04:36 Seg Neutrophils # Man 18.3 K/mm3 (1.8-7.7) H 12/19/17 04:36 Band Neutrophils # 0.2 K/mm3 12/19/17 04:36 Lymphocytes # (Manual) 1.0 K/mm3 (1.2-5.4) L 12/19/17 04:36 Abs React Lymphs (Man) 0.0 K/mm3 12/19/17 04:36 Monocytes # (Manual) 0.8 K/mm3 (0.0-0.8) 12/19/17 04:36 Eosinophils # (Manual) 0.0 K/mm3 (0.0-0.4) 12/19/17 04:36 Basophils # (Manual) 0.0 K/mm3 (0.0-0.1) 12/19/17 04:36 Metamyelocytes # 0.0 K/mm3 12/19/17 04:36 Myelocytes # 0.0 K/mm3 12/19/17 04:36 Promyelocytes # 0.0 K/mm3 12/19/17 04:36 Blast Cells # 0.0 K/mm3 12/19/17 04:36 WBC Morphology Not Reportable 12/19/17 04:36 Hypersegmented Neuts Not Reportable 12/19/17 04:36 Hyposegmented Neuts Not Reportable 12/19/17 04:36 Hypogranular Neuts Not Reportable 12/19/17 04:36 Smudge Cells Not Reportable 12/19/17 04:36 Toxic Granulation Not Reportable 12/19/17 04:36 Toxic Vacuolation Not Reportable 12/19/17 04:36 Dohle Bodies Not Reportable 12/19/17 04:36 Pelger-Huet Anomaly Not Reportable 12/19/17 04:36 Andrei Rods Not Reportable 12/19/17 04:36 Platelet Estimate Not Reportable 12/19/17 04:36 Clumped Platelets Not Reportable 12/19/17 04:36 Plt Clumps, EDTA Not Reportable 12/19/17 04:36 Large Platelets Not Reportable 12/19/17 04:36 Giant Platelets Not Reportable 12/19/17 04:36 Platelet Satelliting Not Reportable 12/19/17 04:36 Plt Morphology Comment Not Reportable 12/19/17 04:36 RBC Morphology Normal 12/19/17 04:36 Dimorphic RBCs Not Reportable 12/19/17 04:36 Polychromasia Not Reportable 12/19/17 04:36 Hypochromasia Not Reportable 12/19/17 04:36 Poikilocytosis Not Reportable 12/19/17 04:36 Anisocytosis Not Reportable 12/19/17 04:36 Microcytosis Not Reportable 12/19/17 04:36 Macrocytosis Not Reportable 12/19/17 04:36 Spherocytes Not Reportable 12/19/17 04:36 Pappenheimer Bodies Not Reportable 12/19/17 04:36 Sickle Cells Not Reportable 12/19/17 04:36 Target Cells Not Reportable 12/19/17 04:36 Tear Drop Cells Not Reportable 12/19/17 04:36 Ovalocytes Not Reportable 12/19/17 04:36 Helmet Cells Not Reportable 12/19/17 04:36 [place] Bodies Not Reportable 12/19/17 04:36 [place] Rings Not Reportable 12/19/17 04:36 Rigo Cells Not Reportable 12/19/17 04:36 Bite Cells Not Reportable 12/19/17 04:36 Crenated Cell Not Reportable 12/19/17 04:36 Elliptocytes Not Reportable 12/19/17 04:36 Acanthocytes (Spur) Not Reportable 12/19/17 04:36 Rouleaux Not Reportable 12/19/17 04:36 Hemoglobin C Crystals Not Reportable 12/19/17 04:36 Schistocytes Not Reportable 12/19/17 04:36 Malaria parasites Not Reportable 12/19/17 04:36 Chriss Bodies Not Reportable 12/19/17 04:36 Hem Pathologist Commnt No 12/19/17 04:36 PT 16.5 Sec. (12.2-14.9) H 12/18/17 12:10 INR 1.26 (0.87-1.13) H 12/18/17 12:10 POC ABG pH 7.487 (7.35-7.45) H 12/18/17 14:30 POC ABG pCO2 32.6 (35-45) L 12/18/17 14:30 POC ABG pO2 65 (80-105) L 12/18/17 14:30 POC ABG HCO3 24.7 12/18/17 14:30 POC ABG Total CO2 26 12/18/17 14:30 POC ABG O2 Sat 94 12/18/17 14:30 POC ABG Base Excess 1 12/18/17 14:30 VBG pH 7.534 (7.320-7.420) H 12/18/17 12:10 FiO2 28 % 12/18/17 14:30 Sodium 141 mmol/L (137-145) 12/19/17 04:36 Potassium 3.6 mmol/L (3.6-5.0) 12/19/17 04:36 Chloride 102.8 mmol/L (98-107) 12/19/17 04:36 Carbon Dioxide 24 mmol/L (22-30) 12/19/17 04:36 Anion Gap 18 mmol/L 12/19/17 04:36 BUN 16 mg/dL (7-17) 12/19/17 04:36 Creatinine 0.7 mg/dL (0.7-1.2) 12/19/17 04:36 Estimated GFR > 60 ml/min 12/19/17 04:36 BUN/Creatinine Ratio 23 % 12/19/17 04:36 Glucose 100 mg/dL (65-100) 12/19/17 04:36 Lactic Acid 1.00 mmol/L (0.7-2.0) 12/19/17 04:36 Calcium 7.8 mg/dL (8.4-10.2) L 12/19/17 04:36 Magnesium 1.60 mg/dL (1.7-2.3) L 12/18/17 12:10 Total Bilirubin 0.50 mg/dL (0.1-1.2) 12/19/17 04:36 Direct Bilirubin 0.2 mg/dL (0-0.2) 12/18/17 12:10 Indirect Bilirubin 0.3 mg/dL 12/18/17 12:10 AST 18 units/L (5-40) 12/19/17 04:36 ALT 18 units/L (7-56) 12/19/17 04:36 Alkaline Phosphatase 72 units/L (35-129) 12/19/17 04:36 Total Creatine Kinase 21 units/L (30-135) L 12/18/17 12:10 CK-MB (CK-2) 2.0 ng/mL (0.0-4.0) 12/18/17 12:10 CK-MB (CK-2) Rel Index 9.5 (0-4) H 12/18/17 12:10 Troponin T < 0.010 ng/mL (0.00-0.029) 12/18/17 12:10 NT-Pro-B Natriuret Pep 1948 pg/mL (0-900) H 12/18/17 12:10 Total Protein 6.2 g/dL (6.3-8.2) L 12/19/17 04:36 Albumin 2.4 g/dL (3.9-5) L 12/19/17 04:36 Albumin/Globulin Ratio 0.6 % 12/19/17 04:36 Urine Color Yellow (Yellow) 12/18/17 18:35 Urine Turbidity Clear (Clear) 12/18/17 18:35 Urine pH 5.0 (5.0-7.0) 12/18/17 18:35 Ur Specific Eva 1.021 (1.003-1.030) 12/18/17 18:35 Urine Protein 30 mg/dl mg/dL (Negative) 12/18/17 18:35 Urine Glucose (UA) Neg mg/dL (Negative) 12/18/17 18:35 Urine Ketones Tr mg/dL (Negative) 12/18/17 18:35 Urine Blood Neg (Negative) 12/18/17 18:35 Urine Nitrite Neg (Negative) 12/18/17 18:35 Urine Bilirubin Neg (Negative) 12/18/17 18:35 Urine Urobilinogen < 2.0 mg/dL (<2.0) 12/18/17 18:35 Ur Leukocyte Esterase Neg (Negative) 12/18/17 18:35 Urine WBC (Auto) 2.0 /HPF (0.0-6.0) 12/18/17 18:35 Urine RBC (Auto) 5.0 /HPF (0.0-6.0) 12/18/17 18:35 U Epithel Cells (Auto) < 1.0 /HPF (0-13.0) 12/18/17 18:35 Urine Mucus Few /HPF 12/18/17 18:35 Blood Type O POSITIVE 12/18/17 12:10 Antibody Screen Negative 12/18/17 12:10
[2017-12-20] MEDS: SYNTHROID PO SCH (05:55)
[2017-12-20] MEDS: ZOSYN/NS 4.5GM/100ML 4.5 GM/100 ML VIAL IV SCH ×3 (05:55→21:20)
[2017-12-20 07:15] LABS: Hematocrit 35.1 % (30.3-42.9); Hemoglobin 11.7 gm/dl (10.1-14.3); Mean Corpuscular HGB Conc 33 % (30-34); Mean Corpuscular Hemoglobin 30 pg (28-32); Mean Corpuscular Volume 89 fl (79-97); Platelet Count 381 K/mm3 (140-440); Red Blood Count 3.93 M/mm3 (3.65-5.03); Red Cell Distribution Width 13.1 % (13.2-15.2)
[2017-12-20 07:31] LABS: BUN/Creatinine Ratio 34; Blood Urea Nitrogen 24 mg/dL (7-17); Calcium 7.9 mg/dL (8.4-10.2); Hemolysis Index 13
[2017-12-20 07:41] LABS: Free T4 (Free Thyroxine) 1.66 ng/dL (0.76-1.46)
[2017-12-20 07:58] LABS: Total Cells Counted 100
[2017-12-20 07:59] LABS: Basophils % (Manual) 0 % (0.0-1.8); Eosinophils % (Manual) 0 % (0.0-4.3); RBC Morphology Normal
[2017-12-20] MEDS: DUONEB *Not for PRN Use IH SCH ×4 (08:24→20:18)
[2017-12-20] MEDS: VANCOMYCIN 750 MG in NACL 0.9% 250ML 250 ML IV SCH (10:33)
[2017-12-20] MEDS: LOPRESSOR PO SCH ×2 (10:34→21:23)
[2017-12-20] MEDS: ZESTRIL PO SCH (10:34)
[2017-12-20] MEDS: ELIQUIS PO SCH ×2 (10:35→21:20)
[2017-12-20] MEDS: CARDIZEM CD PO SCH (10:35)
--- NOTE | 2017-12-20 11:41 | Consultation ---
History of Present Illness Consult date: 12/20/17 Consult reason: shortness of breath History of present illness: 87 year old female admitted with bilateral pneumonia and shortness of breath. She has a history of paroxysmal atrial fibrillation followed by Dr Hubbard in [place]. She is on eliquis therapy. Patient is currently in SR. She denies chest pain. Echo this admission is showing a preserved LVEF. CXR is pertinent for biapical scarring and pleural thickening as well as bilateral infiltrates Past History Past Medical History: atrial fib, COPD (but per patient, life long nonsmoker), hypertension, hypothyroidism Past Surgical History: Other (none told) Social history: no significant social history Medications and Allergies Allergies Allergy/AdvReac Type Severity Reaction Status Date / Time No Known Allergies Allergy Unverified 12/18/17 12:07 Home Medications Medication Instructions Recorded Confirmed Last Taken Type Apixaban [Eliquis] 2.5 mg PO BID 12/18/17 12/18/17 Unknown History Diltiazem HCl [Diltiazem 24Hr ER] 120 mg PO QDAY 12/18/17 12/18/17 Unknown History Levothyroxine [Synthroid] 50 mcg PO QDAY 12/18/17 12/18/17 Unknown History Lisinopril [Prinivil] 5 mg PO QDAY 12/18/17 12/18/17 Unknown History Metoprolol [Lopressor] 100 mg PO BID 12/18/17 12/18/17 Unknown History Rosuvastatin Calcium [Crestor] 10 mg PO 2XW 12/18/17 12/18/17 Unknown History Active Meds: Active Medications Al Hydrox/Mg Hydrox/Simethicone (Alum-Mag Hydrox-Simeth [id number]/5ml) 30 ml PO Q4H PRN PRN Reason: Indigestion Albuterol (Proventil) 2.5 mg IH Q3HRT PRN PRN Reason: Shortness Of Breath Albuterol/Ipratropium (Duoneb *Not For Prn Use*) 1 ampul IH QIDRT [facility] Last Admin: 12/20/17 08:24 Dose: 1 ampul Alprazolam (Xanax) 0.25 mg PO Q8H PRN PRN Reason: Anxiety Apixaban (Eliquis) 2.5 mg PO BID [facility] PRN Reason: Protocol Last Admin: 12/20/17 10:35 Dose: 2.5 mg Atorvastatin Calcium (Lipitor) 20 mg PO [facility] Last Admin: 12/19/17 22:20 Dose: 20 mg Atorvastatin Calcium (Lipitor) 20 mg PO [facility] Bisacodyl (Dulcolax) 10 mg [place] QDAY PRN PRN Reason: constipation unrelieved by MOM Diltiazem HCl (Cardizem Cd) 120 mg PO QDAY [facility] Last Admin: 12/20/17 10:35 Dose: 120 mg Hydromorphone HCl (Dilaudid) 0.5 mg IV Q3H PRN PRN Reason: Pain , Severe (7-10) Piperacillin Sod/Tazobactam Sod (Zosyn/Ns 4.5gm/100ml) 4.5 gm in 100 mls @ 200 mls/hr IV Q8HR [facility] PRN Reason: Protocol Last Admin: 12/20/17 05:55 Dose: 200 mls/hr Vancomycin HCl 750 mg/ Sodium (Chloride) 257.5 mls @ 166.667 mls/hr IV Q24HR [facility] Last Admin: 12/20/17 10:33 Dose: 166.667 mls/hr Levothyroxine Sodium (Synthroid) 50 mcg PO QDAY@0600 [facility] Last Admin: 12/20/17 05:55 Dose: 50 mcg Lisinopril (Zestril) 5 mg PO QDAY [facility] Last Admin: 12/20/17 10:34 Dose: 5 mg Magnesium Hydroxide (Milk Of Magnesia) 30 ml PO Q4H PRN PRN Reason: Constipation Methylprednisolone Sodium Succinate (Solu-Medrol) 60 mg IV Q8HR [facility] Last Admin: 12/20/17 05:55 Dose: 60 mg Metoprolol Tartrate (Lopressor) 100 mg PO BID [facility] Last Admin: 12/20/17 10:34 Dose: 100 mg Morphine Sulfate (Morphine) 4 mg IV Q4H PRN PRN Reason: Pain , Severe (7-10) Oxycodone/Acetaminophen (Percocet 5/325) 1 tab PO Q6H PRN PRN Reason: Pain, Moderate (4-6) Vancomycin HCl (Vancomycin Pharmacy To Dose) 1 each IV PKCONSULT [facility] PRN Reason: Protocol Review of Systems All systems: negative Physical Examination Vital Signs Pulse Ox 91 12/18/17 11:48 General appearance: mild distress HEENT: Positive: Pallor Neck: Positive: neck supple Cardiac: Positive: Reg Rate and Rhythm Lungs: Positive: Rales Abdomen: Positive: Soft Extremities: Absent: edema Results 12/20/17 06:23 12/20/17 06:23 CBC 12/20/17 Range/Units 06:23 WBC 19.3 H (4.5-11.0) K/mm3 RBC 3.93 (3.65-5.03) M/mm3 Hgb 11.7 (10.1-14.3) gm/dl Hct 35.1 (30.3-42.9) % Plt Count 381 (140-440) K/mm3 Comprehensive Metabolic Panel 12/20/17 Range/Units 06:23 Sodium 145 (137-145) mmol/L Potassium 3.7 (3.6-5.0) mmol/L Chloride 100.1 (98-107) mmol/L Carbon Dioxide 24 (22-30) mmol/L BUN 24 H (7-17) mg/dL Creatinine 0.7 (0.7-1.2) mg/dL Glucose 146 H (65-100) mg/dL Calcium 7.9 L (8.4-10.2) mg/dL Assessment and Plan Pneumonia History of multiple admissions for pneumonia recently Biapical scarring and pleural thickening on CXR suggesting underlying pulmonary fibrosis Biapical crackles on exam today Paroxysmal atrial fibrillation on metoprolol and diltiazem Anticoagulated with eliquis as outpatient Normal LVEF by echo with mild to moderate mitral stenosis (MVA 2.1 cm2, and MG 8 mm Hg) Thyroid disorder Systemic Hypertension Hyperlipidemia Recommendations: Systemic antibiotics Oxygen supplementation Rhythm control and anticoagulation for paroxysmal atrial fibrillation Pulmonary work-up for recurrent pneumonia, biapical scarring and pleural thickening No further cardiac work-up is needed
--- NOTE | 2017-12-20 11:45 | Progress Note ---
Assessment and Plan 87 y/o female with afib with RVR, subsequent fluid overload with right lower lobe infiltrate, residual pneumonia from prior diagnosis. 1. Lasix 20mg IV x1, again today. 2. Nursing unable to place nichols 3. Sputum with GNR. Will continue Vanc and Zosyn, will likely discontinue Vanc tomorrow 4. Cards following, will review their note and recs. 5. Wean FiO2 for sats >88%. Patient does not have COPD at least per her history. I took steroids down. Will likely stop tomorrow. Subjective Date of service: 12/20/17 Interval history: Transferred out of ICU yesterday. HR still elevated. BP still elevated and white count remains high. Echo done showed diastolic dysfunction but normal EF. Still on venti mask with decent sats. Objective Vital Signs - 12hr 12/20/17 12/20/17 12/20/17 01:33 04:18 04:36 Temperature 97.4 F L Pulse Rate 69 Pulse Rate [ Anterior Bilateral Throughout] Pulse Rate [ 70 Radial] Respiratory 30 H Rate Respiratory Rate [Anterior Bilateral Throughout] Blood Pressure 150/55 O2 Sat by Pulse 88 94 Oximetry 12/20/17 12/20/17 12/20/17 08:19 08:22 08:37 Temperature 97.7 F Pulse Rate Pulse Rate [ 83 84 Anterior Bilateral Throughout] Pulse Rate [ Radial] Respiratory 18 Rate Respiratory 20 20 Rate [Anterior Bilateral Throughout] Blood Pressure 155/65 O2 Sat by Pulse 94 Oximetry 12/20/17 12/20/17 10:34 10:35 Temperature Pulse Rate 119 H 119 H Pulse Rate [ Anterior Bilateral Throughout] Pulse Rate [ Radial] Respiratory Rate Respiratory Rate [Anterior Bilateral Throughout] Blood Pressure 155/65 155/65 O2 Sat by Pulse Oximetry Constitutional: no acute distress, alert Eyes: non-icteric ENT: oropharynx moist Neck: supple Effort: mildly labored Ascultation: Bilateral: rales, rhonchi Percussion: Bilateral: not dull Tactile fremitus: Bilateral: normal Cardiovascular: regular rate and rhythm Gastrointestinal: normoactive bowel sounds, soft, non-tender Extremities: edema Neurologic: normal mental status, non-focal exam Psychiatric: mood appropriate, affect normal CBC and BMP: 12/20/17 06:23 12/20/17 06:23 ABG, PT/INR, D-dimer: ABG POC ABG pH 7.487 (7.35-7.45) H 12/18/17 14:30 POC ABG pCO2 32.6 (35-45) L 12/18/17 14:30 POC ABG pO2 65 (80-105) L 12/18/17 14:30 POC ABG HCO3 24.7 12/18/17 14:30 POC ABG Total CO2 26 12/18/17 14:30 POC ABG O2 Sat 94 12/18/17 14:30 PT/INR, D-dimer PT 16.5 Sec. (12.2-14.9) H 12/18/17 12:10 INR 1.26 (0.87-1.13) H 12/18/17 12:10 Abnormal lab findings: Abnormal Labs 12/18/17 12/18/17 12/18/17 12:10 12:10 12:10 WBC 24.0 H RDW 13.0 L Plt Count 460 H Seg Neuts % (Manual) 84.0 H Lymphocytes % (Manual) 2.0 L Seg Neutrophils # Man 20.2 H Lymphocytes # (Manual) 0.5 L Monocytes # (Manual) 1.4 H PT INR POC ABG pH POC ABG pCO2 POC ABG pO2 VBG pH BUN 23 H Creatinine 0.6 L Glucose 140 H Lactic Acid 2.20 H* Calcium 8.0 L Magnesium Total Creatine Kinase CK-MB (CK-2) Rel Index NT-Pro-B Natriuret Pep Total Protein 5.8 L Albumin 3.0 L Free T4 12/18/17 12/18/17 12/18/17 12:10 12:10 12:10 WBC RDW Plt Count Seg Neuts % (Manual) Lymphocytes % (Manual) Seg Neutrophils # Man Lymphocytes # (Manual) Monocytes # (Manual) PT 16.5 H INR 1.26 H POC ABG pH POC ABG pCO2 POC ABG pO2 VBG pH BUN Creatinine Glucose Lactic Acid Calcium Magnesium 1.60 L Total Creatine Kinase 21 L CK-MB (CK-2) Rel Index 9.5 H NT-Pro-B Natriuret Pep 1948 H Total Protein Albumin Free T4 12/18/17 12/18/17 12/19/17 12:10 14:30 04:36 WBC 20.3 H RDW Plt Count Seg Neuts % (Manual) 90.0 H Lymphocytes % (Manual) 5.0 L Seg Neutrophils # Man 18.3 H Lymphocytes # (Manual) 1.0 L Monocytes # (Manual) PT INR POC ABG pH 7.487 H POC ABG pCO2 32.6 L POC ABG pO2 65 L VBG pH 7.534 H BUN Creatinine Glucose Lactic Acid Calcium Magnesium Total Creatine Kinase CK-MB (CK-2) Rel Index NT-Pro-B Natriuret Pep Total Protein Albumin Free T4 12/19/17 12/20/17 12/20/17 04:36 06:23 06:23 WBC 19.3 H RDW 13.1 L Plt Count Seg Neuts % (Manual) 96.0 H Lymphocytes % (Manual) 2.0 L Seg Neutrophils # Man 18.5 H Lymphocytes # (Manual) 0.4 L Monocytes # (Manual) PT INR POC ABG pH POC ABG pCO2 POC ABG pO2 VBG pH BUN 24 H Creatinine Glucose 146 H Lactic Acid Calcium 7.8 L 7.9 L Magnesium Total Creatine Kinase CK-MB (CK-2) Rel Index NT-Pro-B Natriuret Pep Total Protein 6.2 L Albumin 2.4 L Free T4 12/20/17 06:23 WBC RDW Plt Count Seg Neuts % (Manual) Lymphocytes % (Manual) Seg Neutrophils # Man Lymphocytes # (Manual) Monocytes # (Manual) PT INR POC ABG pH POC ABG pCO2 POC ABG pO2 VBG pH BUN Creatinine Glucose Lactic Acid Calcium Magnesium Total Creatine Kinase CK-MB (CK-2) Rel Index NT-Pro-B Natriuret Pep Total Protein Albumin Free T4 1.66 H
[2017-12-20] MEDS ORDERED: LASIX IV NR (12:00)
--- NOTE | 2017-12-20 21:00 | Progress Note ---
Assessment and Plan Assessment and plan: --A. fib with rapid ventricular rate; on admission Noted controlled, continue Cardizem, beta blockers, Eliquis Cardiology evaluation --Right lower lobe pneumonia; continue current antibiotics, follow cultures Pulmonary following, probably residual pneumonia from recent illness --Hypertension; moderate control, continue current antihypertensives and when necessary medications --Dyslipidemia; stable on lipid-lowering medications --History of hypothyroidism; continue Synthroid, --Full CODE STATUS --DVT prophylaxis patient is already on Eliquis Cardiology and pulmonary recommendations noted and appreciated History Interval history: Patient seen and evaluated, feels better complaints of shortness of breath Patient is anxious No new events reported by the nursing staff Vital signs stable Hospitalist Physical - Constitutional Vitals: Temp Pulse Resp BP Pulse Ox 97.9 F 73 12 144/50 92 12/20/17 16:28 12/20/17 20:31 12/20/17 20:31 12/20/17 16:28 12/20/17 20:21 General appearance: Present: mild distress, well-nourished - EENT Eyes: Present: PERRL, EOM intact - Neck Neck: Present: supple, normal ROM - Respiratory Respiratory effort: normal Respiratory: bilateral: diminished, negative: rales, rhonchi, wheezing - Cardiovascular Rhythm: regular Heart Sounds: Present: S1 & S2 - Extremities Extremities: no ischemia, No edema - Abdominal General gastrointestinal: soft, non-tender, non-distended, normal bowel sounds - Integumentary Integumentary: Present: clear, warm - Psychiatric Psychiatric: appropriate mood/affect, cooperative - Neurologic Neurologic: CNII-XII intact, moves all extremities Results - Labs CBC & Chem 7: 12/20/17 06:23 12/20/17 06:23 Labs: Laboratory Last Values WBC 19.3 K/mm3 (4.5-11.0) H 12/20/17 06:23 RBC 3.93 M/mm3 (3.65-5.03) 12/20/17 06:23 Hgb 11.7 gm/dl (10.1-14.3) 12/20/17 06:23 Hct 35.1 % (30.3-42.9) 12/20/17 06:23 MCV 89 fl (79-97) 12/20/17 06:23 MCH 30 pg (28-32) 12/20/17 06:23 MCHC 33 % (30-34) 12/20/17 06:23 RDW 13.1 % (13.2-15.2) L 12/20/17 06:23 Plt Count 381 K/mm3 (140-440) 12/20/17 06:23 Add Manual Diff Complete 12/20/17 06:23 Total Counted 100 12/20/17 06:23 Seg Neutrophils % Calender Operator 12/20/17 06:23 Seg Neuts % (Manual) 96.0 % (40.0-70.0) H 12/20/17 06:23 Band Neutrophils % 0 % 12/20/17 06:23 Lymphocytes % (Manual) 2.0 % (13.4-35.0) L 12/20/17 06:23 Reactive Lymphs % (Man) 0 % 12/20/17 06:23 Monocytes % (Manual) 2.0 % (0.0-7.3) 12/20/17 06:23 Eosinophils % (Manual) 0 % (0.0-4.3) 12/20/17 06:23 Basophils % (Manual) 0 % (0.0-1.8) 12/20/17 06:23 Metamyelocytes % 0 % 12/20/17 06:23 Myelocytes % 0 % 12/20/17 06:23 Promyelocytes % 0 % 12/20/17 06:23 Blast Cells % 0 % 12/20/17 06:23 Nucleated RBC % Not Reportable 12/20/17 06:23 Seg Neutrophils # Man 18.5 K/mm3 (1.8-7.7) H 12/20/17 06:23 Band Neutrophils # 0.0 K/mm3 12/20/17 06:23 Lymphocytes # (Manual) 0.4 K/mm3 (1.2-5.4) L 12/20/17 06:23 Abs React Lymphs (Man) 0.0 K/mm3 12/20/17 06:23 Monocytes # (Manual) 0.4 K/mm3 (0.0-0.8) 12/20/17 06:23 Eosinophils # (Manual) 0.0 K/mm3 (0.0-0.4) 12/20/17 06:23 Basophils # (Manual) 0.0 K/mm3 (0.0-0.1) 02/16/18 06:23 Metamyelocytes # 0.0 K/mm3 12/20/17 06:23 Myelocytes # 0.0 K/mm3 12/20/17 06:23 Promyelocytes # 0.0 K/mm3 12/20/17 06:23 Blast Cells # 0.0 K/mm3 12/20/17 06:23 WBC Morphology Not Reportable 12/20/17 06:23 Hypersegmented Neuts Not Reportable 12/20/17 06:23 Hyposegmented Neuts Not Reportable 12/20/17 06:23 Hypogranular Neuts Not Reportable 12/20/17 06:23 Smudge Cells Not Reportable 12/20/17 06:23 Toxic Granulation Not Reportable 12/20/17 06:23 Toxic Vacuolation Not Reportable 12/20/17 06:23 Dohle Bodies Not Reportable 12/20/17 06:23 Pelger-Huet Anomaly Not Reportable 12/20/17 06:23 Andrei Rods Not Reportable 12/20/17 06:23 Platelet Estimate Appears normal 12/20/17 06:23 Clumped Platelets Not Reportable 12/20/17 06:23 Plt Clumps, EDTA Not Reportable 12/20/17 06:23 Large Platelets Not Reportable 12/20/17 06:23 Giant Platelets Not Reportable 12/20/17 06:23 Platelet Satelliting Not Reportable 12/20/17 06:23 Plt Morphology Comment Not Reportable 12/20/17 06:23 RBC Morphology Normal 12/20/17 06:23 Dimorphic RBCs Not Reportable 12/20/17 06:23 Polychromasia Not Reportable 12/20/17 06:23 Hypochromasia Not Reportable 12/20/17 06:23 Poikilocytosis Not Reportable 12/20/17 06:23 Anisocytosis Not Reportable 12/20/17 06:23 Microcytosis Not Reportable 12/20/17 06:23 Macrocytosis Not Reportable 12/20/17 06:23 Spherocytes Not Reportable 12/20/17 06:23 Pappenheimer Bodies Not Reportable 12/20/17 06:23 Sickle Cells Not Reportable 12/20/17 06:23 Target Cells Not Reportable 12/20/17 06:23 Tear Drop Cells Not Reportable 12/20/17 06:23 Ovalocytes Not Reportable 12/20/17 06:23 Helmet Cells Not Reportable 12/20/17 06:23 [place] Bodies Not Reportable 12/20/17 06:23 [place] Rings Not Reportable 12/20/17 06:23 [place] Cells Not Reportable 12/20/17 06:23 Bite Cells Not Reportable 12/20/17 06:23 Crenated Cell Not Reportable 12/20/17 06:23 Elliptocytes Not Reportable 12/20/17 06:23 Acanthocytes (Spur) Not Reportable 12/20/17 06:23 Rouleaux Not Reportable 12/20/17 06:23 Hemoglobin C Crystals Not Reportable 12/20/17 06:23 Schistocytes Not Reportable 12/20/17 06:23 Malaria parasites Not Reportable 12/20/17 06:23 Chriss Bodies Not Reportable 12/20/17 06:23 Hem Pathologist Commnt No 12/20/17 06:23 PT 16.5 Sec. (12.2-14.9) H 12/18/17 12:10 INR 1.26 (0.87-1.13) H 12/18/17 12:10 POC ABG pH 7.487 (7.35-7.45) H 12/18/17 14:30 POC ABG pCO2 32.6 (35-45) L 12/18/17 14:30 POC ABG pO2 65 (80-105) L 12/18/17 14:30 POC ABG HCO3 24.7 12/18/17 14:30 POC ABG Total CO2 26 12/18/17 14:30 POC ABG O2 Sat 94 12/18/17 14:30 POC ABG Base Excess 1 12/18/17 14:30 VBG pH 7.534 (7.320-7.420) H 12/18/17 12:10 FiO2 28 % 12/18/17 14:30 Sodium 145 mmol/L (137-145) 12/20/17 06:23 Potassium 3.7 mmol/L (3.6-5.0) 12/20/17 06:23 Chloride 100.1 mmol/L (98-107) 12/20/17 06:23 Carbon Dioxide 24 mmol/L (22-30) 12/20/17 06:23 Anion Gap 25 mmol/L 12/20/17 06:23 BUN 24 mg/dL (7-17) H 12/20/17 06:23 Creatinine 0.7 mg/dL (0.7-1.2) 12/20/17 06:23 Estimated GFR > 60 ml/min 12/20/17 06:23 BUN/Creatinine Ratio 34 % 12/20/17 06:23 Glucose 146 mg/dL (65-100) H 12/20/17 06:23 Lactic Acid 1.00 mmol/L (0.7-2.0) 12/19/17 04:36 Calcium 7.9 mg/dL (8.4-10.2) L 12/20/17 06:23 Magnesium 1.60 mg/dL (1.7-2.3) L 12/18/17 12:10 Total Bilirubin 0.50 mg/dL (0.1-1.2) 12/19/17 04:36 Direct Bilirubin 0.2 mg/dL (0-0.2) 12/18/17 12:10 Indirect Bilirubin 0.3 mg/dL 12/18/17 12:10 AST 18 units/L (5-40) 12/19/17 04:36 ALT 18 units/L (7-56) 12/19/17 04:36 Alkaline Phosphatase 72 units/L (35-129) 12/19/17 04:36 Total Creatine Kinase 21 units/L (30-135) L 12/18/17 12:10 CK-MB (CK-2) 2.0 ng/mL (0.0-4.0) 12/18/17 12:10 CK-MB (CK-2) Rel Index 9.5 (0-4) H 12/18/17 12:10 Troponin T < 0.010 ng/mL (0.00-0.029) 12/18/17 12:10 NT-Pro-B Natriuret Pep 1948 pg/mL (0-900) H 12/18/17 12:10 Total Protein 6.2 g/dL (6.3-8.2) L 12/19/17 04:36 Albumin 2.4 g/dL (3.9-5) L 12/19/17 04:36 Albumin/Globulin Ratio 0.6 % 12/19/17 04:36 TSH 0.311 mlU/mL (0.270-4.200) 12/20/17 06:23 Free T4 1.66 ng/dL (0.76-1.46) H 12/20/17 06:23 Urine Color Yellow (Yellow) 12/18/17 18:35 Urine Turbidity Clear (Clear) 12/18/17 18:35 Urine pH 5.0 (5.0-7.0) 12/18/17 18:35 Ur Specific [place] 1.021 (1.003-1.030) 12/18/17 18:35 Urine Protein 30 mg/dl mg/dL (Negative) 12/18/17 18:35 Urine Glucose (UA) Neg mg/dL (Negative) 12/18/17 18:35 Urine Ketones Tr mg/dL (Negative) 12/18/17 18:35 Urine Blood Neg (Negative) 12/18/17 18:35 Urine Nitrite Neg (Negative) 12/18/17 18:35 Urine Bilirubin Neg (Negative) 12/18/17 18:35 Urine Urobilinogen < 2.0 mg/dL (<2.0) 12/18/17 18:35 Ur Leukocyte Esterase Neg (Negative) 12/18/17 18:35 Urine WBC (Auto) 2.0 /HPF (0.0-6.0) 12/18/17 18:35 Urine RBC (Auto) 5.0 /HPF (0.0-6.0) 12/18/17 18:35 U Epithel Cells (Auto) < 1.0 /HPF (0-13.0) 12/18/17 18:35 Urine Mucus Few /HPF 12/18/17 18:35 Blood Type O POSITIVE 12/18/17 12:10 Antibody Screen Negative 12/18/17 12:10
[2017-12-21] MEDS: ZOSYN/NS 4.5GM/100ML 4.5 GM/100 ML VIAL IV SCH ×3 (05:04→22:00)
[2017-12-21] MEDS: SYNTHROID PO SCH (05:04)
[2017-12-21 06:01] LABS: Hemoglobin 10.7 gm/dl (10.1-14.3); Mean Corpuscular HGB Conc 34 % (30-34); Mean Corpuscular Hemoglobin 30 pg (28-32); Mean Corpuscular Volume 90 fl (79-97); Platelet Count 395 K/mm3 (140-440); Red Blood Count 3.57 M/mm3 (3.65-5.03); Red Cell Distribution Width 12.8 % (13.2-15.2)
[2017-12-21 07:50] LABS: Band Neutrophils # (Manual) 1.2 K/mm3; Eosinophils % (Manual) 0 % (0.0-4.3); Total Cells Counted 100
[2017-12-21] MEDS: DUONEB *Not for PRN Use IH SCH (08:12)
[2017-12-21] MEDS: VANCOMYCIN 750 MG in NACL 0.9% 250ML 250 ML IV SCH (10:25)
[2017-12-21] MEDS: ELIQUIS PO SCH ×2 (10:28→22:00)
[2017-12-21] MEDS: LOPRESSOR PO SCH ×2 (10:29→22:01)
[2017-12-21] MEDS: ZESTRIL PO SCH (10:29)
[2017-12-21] MEDS: CARDIZEM CD PO SCH (10:30)
--- NOTE | 2017-12-21 10:57 | Progress Note ---
Assessment and Plan Assessment and plan: --A. fib with rapid ventricular rate; on admission Noted controlled, continue Cardizem, beta blockers, Eliquis Cardiology evaluation --Right lower lobe pneumonia; continue current antibiotics, follow cultures Pulmonary following, probably residual pneumonia from recent illness --Hypertension; moderate control, continue current antihypertensives and when necessary medications --Dyslipidemia; stable on lipid-lowering medications --History of hypothyroidism; continue Synthroid, --DVT prophylaxis -- full CODE STATUS --Ambulate as tolerated and possible discharge in 1-2 days if stable Evaluation for home oxygen at discharge Plan of care is reviewed with the patient and her nurse History Interval history: Patient seen and examined medical records reviewed Still has mild shortness of breath, occasional dry cough Afebrile Alert awake oriented 3 Vital signs reviewed Hospitalist Physical - Constitutional Vitals: Temp Pulse Resp BP Pulse Ox 98.5 F 69 18 155/41 92 12/21/17 08:19 12/21/17 10:30 12/21/17 08:30 12/21/17 10:30 12/21/17 09:40 General appearance: Present: mild distress, well-nourished - EENT Eyes: Present: PERRL, EOM intact - Neck Neck: Present: supple, normal ROM - Respiratory Respiratory effort: normal Respiratory: bilateral: diminished, negative: rales, rhonchi, wheezing - Cardiovascular Rhythm: regular Heart Sounds: Present: S1 & S2 - Extremities Extremities: no ischemia, No edema - Abdominal General gastrointestinal: soft, non-tender, non-distended, normal bowel sounds - Integumentary Integumentary: Present: clear, warm - Psychiatric Psychiatric: appropriate mood/affect, cooperative - Neurologic Neurologic: CNII-XII intact, moves all extremities Results - Labs CBC & Chem 7: 12/21/17 05:04 12/20/17 06:23 Labs: Laboratory Last Values WBC 20.5 K/mm3 (4.5-11.0) H 12/21/17 05:04 RBC 3.57 M/mm3 (3.65-5.03) L 12/21/17 05:04 Hgb 10.7 gm/dl (10.1-14.3) 12/21/17 05:04 Hct 32.0 % (30.3-42.9) 12/21/17 05:04 MCV 90 fl (79-97) 12/21/17 05:04 MCH 30 pg (28-32) 12/21/17 05:04 MCHC 34 % (30-34) 12/21/17 05:04 RDW 12.8 % (13.2-15.2) L 12/21/17 05:04 Plt Count 395 K/mm3 (140-440) 12/21/17 05:04 Add Manual Diff Complete 12/21/17 05:04 Total Counted 100 12/21/17 05:04 Seg Neutrophils % [place] Drill Operator 12/21/17 05:04 Seg Neuts % (Manual) 66.0 % (40.0-70.0) 12/21/17 05:04 Band Neutrophils % 6.0 % 12/21/17 05:04 Lymphocytes % (Manual) 12.0 % (13.4-35.0) L 12/21/17 05:04 Reactive Lymphs % (Man) 0 % 12/21/17 05:04 Monocytes % (Manual) 15.0 % (0.0-7.3) H 12/21/17 05:04 Eosinophils % (Manual) 0 % (0.0-4.3) 12/21/17 05:04 Basophils % (Manual) 0 % (0.0-1.8) 12/20/17 06:23 Metamyelocytes % 1.0 % 12/21/17 05:04 Myelocytes % 0 % 12/21/17 05:04 Promyelocytes % 0 % 12/21/17 05:04 Blast Cells % 0 % 12/21/17 05:04 Nucleated RBC % Not Reportable 12/21/17 05:04 Seg Neutrophils # Man 13.5 K/mm3 (1.8-7.7) H 12/21/17 05:04 Band Neutrophils # 1.2 K/mm3 12/21/17 05:04 Lymphocytes # (Manual) 2.5 K/mm3 (1.2-5.4) 12/21/17 05:04 Abs React Lymphs (Man) 0.0 K/mm3 12/21/17 05:04 Monocytes # (Manual) 3.1 K/mm3 (0.0-0.8) H 12/21/17 05:04 Eosinophils # (Manual) 0.0 K/mm3 (0.0-0.4) 12/21/17 05:04 Basophils # (Manual) 0.0 K/mm3 (0.0-0.1) 12/21/17 05:04 Metamyelocytes # 0.2 K/mm3 12/21/17 05:04 Myelocytes # 0.0 K/mm3 12/21/17 05:04 Promyelocytes # 0.0 K/mm3 12/21/17 05:04 Blast Cells # 0.0 K/mm3 12/21/17 05:04 WBC Morphology Not Reportable 12/21/17 05:04 Hypersegmented Neuts Not Reportable 12/21/17 05:04 Hyposegmented Neuts Not Reportable 12/21/17 05:04 Hypogranular Neuts Not Reportable 12/21/17 05:04 Smudge Cells Not Reportable 12/21/17 05:04 Toxic Granulation Not Reportable 12/21/17 05:04 Toxic Vacuolation Not Reportable 12/21/17 05:04 Dohle Bodies Not Reportable 12/21/17 05:04 Pelger-Huet Anomaly Not Reportable 12/21/17 05:04 Andrei Rods Not Reportable 12/21/17 05:04 Platelet Estimate Appears normal 12/21/17 05:04 Clumped Platelets Not Reportable 12/21/17 05:04 Plt Clumps, EDTA Not Reportable 12/21/17 05:04 Large Platelets Not Reportable 12/21/17 05:04 Giant Platelets Not Reportable 12/21/17 05:04 Platelet Satelliting Not Reportable 12/21/17 05:04 Plt Morphology Comment Not Reportable 12/21/17 05:04 RBC Morphology Not Reportable 12/21/17 05:04 Dimorphic RBCs Not Reportable 12/21/17 05:04 Polychromasia Not Reportable 12/21/17 05:04 Hypochromasia Not Reportable 12/21/17 05:04 Poikilocytosis Not Reportable 12/21/17 05:04 Anisocytosis Not Reportable 12/21/17 05:04 Microcytosis Not Reportable 12/21/17 05:04 Macrocytosis Not Reportable 12/21/17 05:04 Spherocytes Not Reportable 12/21/17 05:04 Pappenheimer Bodies Not Reportable 12/21/17 05:04 Sickle Cells Not Reportable 12/21/17 05:04 Target Cells Not Reportable 12/21/17 05:04 Tear Drop Cells Not Reportable 12/21/17 05:04 Ovalocytes Not Reportable 12/21/17 05:04 Helmet Cells Not Reportable 12/21/17 05:[address] [place] Bodies Not Reportable 12/21/17 05:04 [place] Rings Not Reportable 12/21/17 05:04 [place] Cells Not Reportable 12/21/17 05:04 Bite Cells Not Reportable 12/21/17 05:04 Crenated Cell Not Reportable 12/21/17 05:04 Elliptocytes Not Reportable 12/21/17 05:04 Acanthocytes (Spur) Not Reportable 12/21/17 05:04 Rouleaux Not Reportable 12/21/17 05:04 Hemoglobin C Crystals Not Reportable 12/21/17 05:04 Schistocytes Not Reportable 12/21/17 05:04 Malaria parasites Not Reportable 12/21/17 05:04 Chriss Bodies Not Reportable 12/21/17 05:04 Hem Pathologist Commnt No 12/21/17 05:04 PT 16.5 Sec. (12.2-14.9) H 12/18/17 12:10 INR 1.26 (0.87-1.13) H 12/18/17 12:10 POC ABG pH 7.487 (7.35-7.45) H 12/18/17 14:30 POC ABG pCO2 32.6 (35-45) L 12/18/17 14:30 POC ABG pO2 65 (80-105) L 12/18/17 14:30 POC ABG HCO3 24.7 12/18/17 14:30 POC ABG Total CO2 26 12/18/17 14:30 POC ABG O2 Sat 94 12/18/17 14:30 POC ABG Base Excess 1 12/18/17 14:30 VBG pH 7.534 (7.320-7.420) H 12/18/17 12:10 FiO2 28 % 12/18/17 14:30 Sodium 145 mmol/L (137-145) 12/20/17 06:23 Potassium 3.7 mmol/L (3.6-5.0) 12/20/17 06:23 Chloride 100.1 mmol/L (98-107) 12/20/17 06:23 Carbon Dioxide 24 mmol/L (22-30) 12/20/17 06:23 Anion Gap 25 mmol/L 12/20/17 06:23 BUN 24 mg/dL (7-17) H 12/20/17 06:23 Creatinine 0.7 mg/dL (0.7-1.2) 12/20/17 06:23 Estimated GFR > 60 ml/min 12/20/17 06:23 BUN/Creatinine Ratio 34 % 12/20/17 06:23 Glucose 146 mg/dL (65-100) H 12/20/17 06:23 Lactic Acid 1.00 mmol/L (0.7-2.0) 12/19/17 04:36 Calcium 7.9 mg/dL (8.4-10.2) L 12/20/17 06:23 Magnesium 1.60 mg/dL (1.7-2.3) L 12/18/17 12:10 Total Bilirubin 0.50 mg/dL (0.1-1.2) 12/19/17 04:36 Direct Bilirubin 0.2 mg/dL (0-0.2) 12/18/17 12:10 Indirect Bilirubin 0.3 mg/dL 12/18/17 12:10 AST 18 units/L (5-40) 12/19/17 04:36 ALT 18 units/L (7-56) 12/19/17 04:36 Alkaline Phosphatase 72 units/L (35-129) 12/19/17 04:36 Total Creatine Kinase 21 units/L (30-135) L 12/18/17 12:10 CK-MB (CK-2) 2.0 ng/mL (0.0-4.0) 12/18/17 12:10 CK-MB (CK-2) Rel Index 9.5 (0-4) H 12/18/17 12:10 Troponin T < 0.010 ng/mL (0.00-0.029) 12/18/17 12:10 NT-Pro-B Natriuret Pep 1948 pg/mL (0-900) H 12/18/17 12:10 Total Protein 6.2 g/dL (6.3-8.2) L 12/19/17 04:36 Albumin 2.4 g/dL (3.9-5) L 12/19/17 04:36 Albumin/Globulin Ratio 0.6 % 12/19/17 04:36 TSH 0.311 mlU/mL (0.270-4.200) 12/20/17 06:23 Free T4 1.66 ng/dL (0.76-1.46) H 12/20/17 06:23 Urine Color Yellow (Yellow) 12/18/17 18:35 Urine Turbidity Clear (Clear) 12/18/17 18:35 Urine pH 5.0 (5.0-7.0) 12/18/17 18:35 Ur Specific [place] 1.021 (1.003-1.030) 12/18/17 18:35 Urine Protein 30 mg/dl mg/dL (Negative) 12/18/17 18:35 Urine Glucose (UA) Neg mg/dL (Negative) 12/18/17 18:35 Urine Ketones Tr mg/dL (Negative) 12/18/17 18:35 Urine Blood Neg (Negative) 12/18/17 18:35 Urine Nitrite Neg (Negative) 12/18/17 18:35 Urine Bilirubin Neg (Negative) 12/18/17 18:35 Urine Urobilinogen < 2.0 mg/dL (<2.0) 12/18/17 18:35 Ur Leukocyte Esterase Neg (Negative) 12/18/17 18:35 Urine WBC (Auto) 2.0 /HPF (0.0-6.0) 12/18/17 18:35 Urine RBC (Auto) 5.0 /HPF (0.0-6.0) 12/18/17 18:35 U Epithel Cells (Auto) < 1.0 /HPF (0-13.0) 12/18/17 18:35 Urine Mucus Few /HPF 12/18/17 18:35 Blood Type O POSITIVE 12/18/17 12:10 Antibody Screen Negative 12/18/17 12:10
--- NOTE | 2017-12-21 11:09 | Progress Note ---
Assessment and Plan 87 y/o female with afib with RVR, subsequent fluid overload with right lower lobe infiltrate, residual pneumonia from prior diagnosis. 1. Lasix 20mg IV x1, again today. 2. Will stop Vanc, continue zosyn 4. Cards following, will review their note and recs. 5. Wean FiO2 for sats >88%. Steroids stopped and I have stopped nebulizer treatments. Subjective Date of service: 12/21/17 Interval history: No acute events. Patient is not tolerating neb treatments. Breathing is better. Down to nasal cannula today. Looks better just feels weird after neb treatments. Objective Vital Signs - 12hr 12/20/17 12/21/17 12/21/17 23:51 04:00 04:38 Temperature 98.2 F 98.2 F Pulse Rate 77 53 L 54 L Pulse Rate [ Anterior Bilateral Throughout] Respiratory 18 18 Rate Respiratory Rate [Anterior Bilateral Throughout] Blood Pressure 156/50 154/51 O2 Sat by Pulse 93 92 Oximetry 12/21/17 12/21/17 12/21/17 08:16 08:19 08:20 Temperature 98.5 F Pulse Rate 53 L Pulse Rate [ 84 Anterior Bilateral Throughout] Respiratory 18 Rate Respiratory 18 Rate [Anterior Bilateral Throughout] Blood Pressure 156/49 O2 Sat by Pulse 93 Oximetry 12/21/17 12/21/17 12/21/17 08:30 08:39 09:40 Temperature Pulse Rate Pulse Rate [ 85 Anterior Bilateral Throughout] Respiratory Rate Respiratory 18 Rate [Anterior Bilateral Throughout] Blood Pressure O2 Sat by Pulse 92 92 Oximetry 12/21/17 12/21/17 10:29 10:30 Temperature Pulse Rate 69 69 Pulse Rate [ Anterior Bilateral Throughout] Respiratory Rate Respiratory Rate [Anterior Bilateral Throughout] Blood Pressure 155/41 155/41 O2 Sat by Pulse Oximetry Constitutional: no acute distress, alert Eyes: non-icteric ENT: oropharynx moist Neck: supple Effort: mildly labored Ascultation: Bilateral: rales, rhonchi Percussion: Bilateral: not dull Tactile fremitus: Bilateral: normal Cardiovascular: regular rate and rhythm Gastrointestinal: normoactive bowel sounds, soft, non-tender Extremities: edema Neurologic: normal mental status, non-focal exam Psychiatric: mood appropriate, affect normal CBC and BMP: 12/21/17 05:04 12/20/17 06:23 ABG, PT/INR, D-dimer: ABG POC ABG pH 7.487 (7.35-7.45) H 12/18/17 14:30 POC ABG pCO2 32.6 (35-45) L 12/18/17 14:30 POC ABG pO2 65 (80-105) L 12/18/17 14:30 POC ABG HCO3 24.7 12/18/17 14:30 POC ABG Total CO2 26 12/18/17 14:30 POC ABG O2 Sat 94 12/18/17 14:30 PT/INR, D-dimer PT 16.5 Sec. (12.2-14.9) H 12/18/17 12:10 INR 1.26 (0.87-1.13) H 12/18/17 12:10 Abnormal lab findings: Abnormal Labs 12/18/17 12/18/17 12/18/17 12:10 12:10 12:10 WBC 24.0 H RBC RDW 13.0 L Plt Count 460 H Seg Neuts % (Manual) 84.0 H Lymphocytes % (Manual) 2.0 L Monocytes % (Manual) Seg Neutrophils # Man 20.2 H Lymphocytes # (Manual) 0.5 L Monocytes # (Manual) 1.4 H PT INR POC ABG pH POC ABG pCO2 POC ABG pO2 VBG pH BUN 23 H Creatinine 0.6 L Glucose 140 H Lactic Acid 2.20 H* Calcium 8.0 L Magnesium Total Creatine Kinase CK-MB (CK-2) Rel Index NT-Pro-B Natriuret Pep Total Protein 5.8 L Albumin 3.0 L Free T4 12/18/17 12/18/17 12/18/17 12:10 12:10 12:10 WBC RBC RDW Plt Count Seg Neuts % (Manual) Lymphocytes % (Manual) Monocytes % (Manual) Seg Neutrophils # Man Lymphocytes # (Manual) Monocytes # (Manual) PT 16.5 H INR 1.26 H POC ABG pH POC ABG pCO2 POC ABG pO2 VBG pH BUN Creatinine Glucose Lactic Acid Calcium Magnesium 1.60 L Total Creatine Kinase 21 L CK-MB (CK-2) Rel Index 9.5 H NT-Pro-B Natriuret Pep 1948 H Total Protein Albumin Free T4 12/18/17 12/18/17 12/19/17 12:10 14:30 04:36 WBC 20.3 H RBC RDW Plt Count Seg Neuts % (Manual) 90.0 H Lymphocytes % (Manual) 5.0 L Monocytes % (Manual) Seg Neutrophils # Man 18.3 H Lymphocytes # (Manual) 1.0 L Monocytes # (Manual) PT INR POC ABG pH 7.487 H POC ABG pCO2 32.6 L POC ABG pO2 65 L VBG pH 7.534 H BUN Creatinine Glucose Lactic Acid Calcium Magnesium Total Creatine Kinase CK-MB (CK-2) Rel Index NT-Pro-B Natriuret Pep Total Protein Albumin Free T4 12/19/17 12/20/17 12/20/17 04:36 06:23 06:23 WBC 19.3 H RBC RDW 13.1 L Plt Count Seg Neuts % (Manual) 96.0 H Lymphocytes % (Manual) 2.0 L Monocytes % (Manual) Seg Neutrophils # Man 18.5 H Lymphocytes # (Manual) 0.4 L Monocytes # (Manual) PT INR POC ABG pH POC ABG pCO2 POC ABG pO2 VBG pH BUN 24 H Creatinine Glucose 146 H Lactic Acid Calcium 7.8 L 7.9 L Magnesium Total Creatine Kinase CK-MB (CK-2) Rel Index NT-Pro-B Natriuret Pep Total Protein 6.2 L Albumin 2.4 L Free T4 12/20/17 12/21/17 06:23 05:04 WBC 20.5 H RBC 3.57 L RDW 12.8 L Plt Count Seg Neuts % (Manual) Lymphocytes % (Manual) 12.0 L Monocytes % (Manual) 15.0 H Seg Neutrophils # Man 13.5 H Lymphocytes # (Manual) Monocytes # (Manual) 3.1 H PT INR POC ABG pH POC ABG pCO2 POC ABG pO2 VBG pH BUN Creatinine Glucose Lactic Acid Calcium Magnesium Total Creatine Kinase CK-MB (CK-2) Rel Index NT-Pro-B Natriuret Pep Total Protein Albumin Free T4 1.66 H
--- NOTE | 2017-12-21 13:35 | Progress Note ---
Assessment and Plan - Patient Problems (1) Paroxysmal atrial fibrillation Current Visit: Yes Status: Acute Plan to address problem: Patient is currently in a stable sinus rhythm, we'll continue medical therapy as previously ordered for paroxysmal atrial fibrillation. Subjective Date of service: 12/21/17 Interval history: Patient looks and feels better, no further cardiac complaints. On the community music therapist, she is in a stable sinus rhythm at 69. Objective Vital Signs Temp Pulse Pulse Resp Resp BP BP 12/21/17 12:13 98.5 F 62 18 154/40 12/21/17 10:30 69 155/41 12/21/17 10:29 69 155/41 12/21/17 09:40 12/21/17 08:39 12/21/17 08:30 85 18 12/21/17 08:20 84 18 12/21/17 08:19 98.5 F 18 156/49 12/21/17 08:16 53 L 12/21/17 04:38 98.2 F 54 L 18 154/51 12/21/17 04:00 53 L 12/20/17 23:51 98.2 F 77 18 156/50 12/20/17 20:31 73 12 12/20/17 20:21 12/20/17 20:18 69 13 12/20/17 19:30 97.9 F 67 18 132/36 12/20/17 16:35 60 20 12/20/17 16:28 97.9 F 67 18 144/50 12/20/17 16:21 54 L 20 Pulse Ox 12/21/17 12:13 95 12/21/17 10:30 12/21/17 10:29 12/21/17 09:40 92 12/21/17 08:39 92 12/21/17 08:30 12/21/17 08:20 12/21/17 08:19 12/21/17 08:16 93 12/21/17 04:38 92 12/21/17 04:00 12/20/17 23:51 93 12/20/17 20:31 12/20/17 20:21 92 12/20/17 20:18 12/20/17 19:30 91 12/20/17 16:35 94 12/20/17 16:28 97 12/20/17 16:21 - Physical Examination General: No Apparent Distress HEENT: Positive: Pallor Neck: Positive: neck supple Cardiac: Positive: Reg Rate and Rhythm Lungs: Positive: Decreased Breath Sounds Neuro: Positive: Weakness Abdomen: Positive: Soft Skin: Positive: Clear Extremities: Absent: edema - Labs and Meds CBC 12/21/17 Range/Units 05:04 WBC 20.5 H (4.5-11.0) K/mm3 RBC 3.57 L (3.65-5.03) M/mm3 Hgb 10.7 (10.1-14.3) gm/dl Hct 32.0 (30.3-42.9) % Plt Count 395 (140-440) K/mm3
[2017-12-21] MEDS ORDERED: DUONEB *Not for PRN Use IH SCH (14:00)
[2017-12-22] MEDS: ZOFRAN IV PRN (01:41)
[2017-12-22] MEDS: ZOSYN/NS 4.5GM/100ML 4.5 GM/100 ML VIAL IV SCH ×3 (06:12→21:01)
[2017-12-22] MEDS: SYNTHROID PO SCH (06:12)
[2017-12-22] MEDS: ZESTRIL PO SCH (09:44)
[2017-12-22] MEDS: CARDIZEM CD PO SCH (09:44)
[2017-12-22] MEDS: LOPRESSOR PO SCH ×2 (09:46→21:03)
[2017-12-22] MEDS: ELIQUIS PO SCH ×2 (09:46→21:02)
--- NOTE | 2017-12-22 13:22 | Progress Note ---
Assessment and Plan - Patient Problems (1) Paroxysmal atrial fibrillation Current Visit: Yes Status: Acute Plan to address problem: Patient is currently in a stable sinus rhythm, we'll continue medical therapy as previously ordered for paroxysmal atrial fibrillation. Subjective Date of service: 12/22/17 Interval history: Patient looks and feels better, no further cardiac complaints. On the electronic field service engineer, she remains in stable sinus rhythm. Objective Vital Signs Temp Pulse Resp BP Pulse Ox 12/22/17 04:54 98.1 F 59 L 18 155/52 94 12/22/17 00:11 98.4 F 52 L 18 158/50 93 12/21/17 23:00 53 L 12/21/17 19:52 98.2 F 59 L 18 152/45 93 12/21/17 16:49 57 L 153/53 95 - Physical Examination General: No Apparent Distress HEENT: Positive: Pallor Neck: Positive: neck supple Cardiac: Positive: Reg Rate and Rhythm Lungs: Positive: Decreased Breath Sounds Neuro: Positive: Weakness Abdomen: Positive: Soft Skin: Positive: Clear Extremities: Absent: edema
--- NOTE | 2017-12-22 13:47 | Progress Note ---
Assessment and Plan Assessment and plan: --A. fib with rapid ventricular rate; on admission Noted controlled, continue Cardizem, beta blockers, Eliquis Cardiology evaluation --Right lower lobe pneumonia; continue current antibiotics, follow cultures Pulmonary following, probably residual pneumonia from recent illness --Hypertension; moderate control, continue current antihypertensives and when necessary medications --Dyslipidemia; stable on lipid-lowering medications --History of hypothyroidism; continue Synthroid, --DVT prophylaxis with Lovenox and SCD --Full code DC planning. Case management Possible discharge home tomorrow with home health and home oxygen if needed Plan of care is reviewed with the patient and multiple family members at the bedside Answered all their questions History Interval history: Since seen and examined medical records reviewed Multiple family members at the bedside Patient feels slightly better cheerful Denies any chest pain or shortness of breath Vital signs reviewed Hospitalist Physical - Constitutional Vitals: Temp Pulse Resp BP Pulse Ox 98.1 F 59 L 18 155/52 94 12/22/17 04:54 12/22/17 04:54 12/22/17 04:54 12/22/17 04:54 12/22/17 04:54 General appearance: Present: no acute distress, well-nourished - EENT Eyes: Present: PERRL, EOM intact - Neck Neck: Present: supple, normal ROM - Respiratory Respiratory effort: normal Respiratory: bilateral: diminished, negative: rales, rhonchi, wheezing - Cardiovascular Rhythm: regular Heart Sounds: Present: S1 & S2 - Extremities Extremities: no ischemia, No edema - Abdominal General gastrointestinal: soft, non-tender, non-distended, normal bowel sounds - Integumentary Integumentary: Present: clear, warm - Psychiatric Psychiatric: appropriate mood/affect, cooperative - Neurologic Neurologic: CNII-XII intact, moves all extremities Results - Labs CBC & Chem 7: 12/21/17 05:04 12/20/17 06:23 Labs: Laboratory Last Values WBC 20.5 K/mm3 (4.5-11.0) H 12/21/17 05:04 RBC 3.57 M/mm3 (3.65-5.03) L 12/21/17 05:04 Hgb 10.7 gm/dl (10.1-14.3) 12/21/17 05:04 Hct 32.0 % (30.3-42.9) 12/21/17 05:04 MCV 90 fl (79-97) 12/21/17 05:04 MCH 30 pg (28-32) 12/21/17 05:04 MCHC 34 % (30-34) 12/21/17 05:04 RDW 12.8 % (13.2-15.2) L 12/21/17 05:04 Plt Count 395 K/mm3 (140-440) 12/21/17 05:04 Add Manual Diff Complete 12/21/17 05:04 Total Counted 100 12/21/17 05:04 Seg Neutrophils % Category Development Analyst 12/21/17 05:04 Seg Neuts % (Manual) 66.0 % (40.0-70.0) 12/21/17 05:04 Band Neutrophils % 6.0 % 12/21/17 05:04 Lymphocytes % (Manual) 12.0 % (13.4-35.0) L 12/21/17 05:04 Reactive Lymphs % (Man) 0 % 12/21/17 05:04 Monocytes % (Manual) 15.0 % (0.0-7.3) H 12/21/17 05:04 Eosinophils % (Manual) 0 % (0.0-4.3) 12/21/17 05:04 Basophils % (Manual) 0 % (0.0-1.8) 12/20/17 06:23 Metamyelocytes % 1.0 % 12/21/17 05:04 Myelocytes % 0 % 12/21/17 05:04 Promyelocytes % 0 % 12/21/17 05:04 Blast Cells % 0 % 12/21/17 05:04 Nucleated RBC % Not Reportable 12/21/17 05:04 Seg Neutrophils # Man 13.5 K/mm3 (1.8-7.7) H 12/21/17 05:04 Band Neutrophils # 1.2 K/mm3 12/21/17 05:04 Lymphocytes # (Manual) 2.5 K/mm3 (1.2-5.4) 12/21/17 05:04 Abs React Lymphs (Man) 0.0 K/mm3 12/21/17 05:04 Monocytes # (Manual) 3.1 K/mm3 (0.0-0.8) H 12/21/17 05:04 Eosinophils # (Manual) 0.0 K/mm3 (0.0-0.4) 12/21/17 05:04 Basophils # (Manual) 0.0 K/mm3 (0.0-0.1) 12/21/17 05:04 Metamyelocytes # 0.2 K/mm3 12/21/17 05:04 Myelocytes # 0.0 K/mm3 12/21/17 05:04 Promyelocytes # 0.0 K/mm3 12/21/17 05:04 Blast Cells # 0.0 K/mm3 12/21/17 05:04 WBC Morphology Not Reportable 12/21/17 05:04 Hypersegmented Neuts Not Reportable 12/21/17 05:04 Hyposegmented Neuts Not Reportable 12/21/17 05:04 Hypogranular Neuts Not Reportable 12/21/17 05:04 Smudge Cells Not Reportable 12/21/17 05:04 Toxic Granulation Not Reportable 12/21/17 05:04 Toxic Vacuolation Not Reportable 12/21/17 05:04 Dohle Bodies Not Reportable 12/21/17 05:04 Pelger-Huet Anomaly Not Reportable 12/21/17 05:04 Andrei Rods Not Reportable 12/21/17 05:04 Platelet Estimate Appears normal 12/21/17 05:04 Clumped Platelets Not Reportable 12/21/17 05:04 Plt Clumps, EDTA Not Reportable 12/21/17 05:04 Large Platelets Not Reportable 12/21/17 05:04 Giant Platelets Not Reportable 12/21/17 05:04 Platelet Satelliting Not Reportable 12/21/17 05:04 Plt Morphology Comment Not Reportable 12/21/17 05:04 RBC Morphology Not Reportable 12/21/17 05:04 Dimorphic RBCs Not Reportable 12/21/17 05:04 Polychromasia Not Reportable 12/21/17 05:04 Hypochromasia Not Reportable 12/21/17 05:04 Poikilocytosis Not Reportable 12/21/17 05:04 Anisocytosis Not Reportable 12/21/17 05:04 Microcytosis Not Reportable 12/21/17 05:04 Macrocytosis Not Reportable 12/21/17 05:04 Spherocytes Not Reportable 12/21/17 05:04 Pappenheimer Bodies Not Reportable 12/21/17 05:04 Sickle Cells Not Reportable 12/21/17 05:04 Target Cells Not Reportable 12/21/17 05:04 Tear Drop Cells Not Reportable 12/21/17 05:04 Ovalocytes Not Reportable 12/21/17 05:04 [place] Cells Not Reportable 12/21/17 05:04 [place] Bodies Not Reportable 12/21/17 05:04 [place] Rings Not Reportable 12/21/17 05:04 [place] Cells Not Reportable 12/21/17 05:04 Bite Cells Not Reportable 12/21/17 05:04 Crenated Cell Not Reportable 12/21/17 05:04 Elliptocytes Not Reportable 12/21/17 05:04 Acanthocytes (Spur) Not Reportable 12/21/17 05:04 Rouleaux Not Reportable 12/21/17 05:04 Hemoglobin C Crystals Not Reportable 12/21/17 05:04 Schistocytes Not Reportable 12/21/17 05:04 Malaria parasites Not Reportable 12/21/17 05:04 Chriss Bodies Not Reportable 12/21/17 05:04 Hem Pathologist Commnt No 12/21/17 05:04 PT 16.5 Sec. (12.2-14.9) H 12/18/17 12:10 INR 1.26 (0.87-1.13) H 12/18/17 12:10 POC ABG pH 7.487 (7.35-7.45) H 12/18/17 14:30 POC ABG pCO2 32.6 (35-45) L 12/18/17 14:30 POC ABG pO2 65 (80-105) L 12/18/17 14:30 POC ABG HCO3 24.7 12/18/17 14:30 POC ABG Total CO2 26 12/18/17 14:30 POC ABG O2 Sat 94 12/18/17 14:30 POC ABG Base Excess 1 12/18/17 14:30 VBG pH 7.534 (7.320-7.420) H 12/18/17 12:10 FiO2 28 % 12/18/17 14:30 Sodium 145 mmol/L (137-145) 12/20/17 06:23 Potassium 3.7 mmol/L (3.6-5.0) 12/20/17 06:23 Chloride 100.1 mmol/L (98-107) 12/20/17 06:23 Carbon Dioxide 24 mmol/L (22-30) 12/20/17 06:23 Anion Gap 25 mmol/L 12/20/17 06:23 BUN 24 mg/dL (7-17) H 12/20/17 06:23 Creatinine 0.7 mg/dL (0.7-1.2) 12/20/17 06:23 Estimated GFR > 60 ml/min 12/20/17 06:23 BUN/Creatinine Ratio 34 % 12/20/17 06:23 Glucose 146 mg/dL (65-100) H 12/20/17 06:23 Lactic Acid 1.00 mmol/L (0.7-2.0) 12/19/17 04:36 Calcium 7.9 mg/dL (8.4-10.2) L 12/20/17 06:23 Magnesium 1.60 mg/dL (1.7-2.3) L 12/18/17 12:10 Total Bilirubin 0.50 mg/dL (0.1-1.2) 12/19/17 04:36 Direct Bilirubin 0.2 mg/dL (0-0.2) 12/18/17 12:10 Indirect Bilirubin 0.3 mg/dL 12/18/17 12:10 AST 18 units/L (5-40) 12/19/17 04:36 ALT 18 units/L (7-56) 12/19/17 04:36 Alkaline Phosphatase 72 units/L (35-129) 12/19/17 04:36 Total Creatine Kinase 21 units/L (30-135) L 12/18/17 12:10 CK-MB (CK-2) 2.0 ng/mL (0.0-4.0) 12/18/17 12:10 CK-MB (CK-2) Rel Index 9.5 (0-4) H 12/18/17 12:10 Troponin T < 0.010 ng/mL (0.00-0.029) 12/18/17 12:10 NT-Pro-B Natriuret Pep 1948 pg/mL (0-900) H 12/18/17 12:10 Total Protein 6.2 g/dL (6.3-8.2) L 12/19/17 04:36 Albumin 2.4 g/dL (3.9-5) L 12/19/17 04:36 Albumin/Globulin Ratio 0.6 % 12/19/17 04:36 TSH 0.311 mlU/mL (0.270-4.200) 12/20/17 06:23 Free T4 1.66 ng/dL (0.76-1.46) H 12/20/17 06:23 Urine Color Yellow (Yellow) 12/18/17 18:35 Urine Turbidity Clear (Clear) 12/18/17 18:35 Urine pH 5.0 (5.0-7.0) 12/18/17 18:35 Ur Specific [place] 1.021 (1.003-1.030) 12/18/17 18:35 Urine Protein 30 mg/dl mg/dL (Negative) 12/18/17 18:35 Urine Glucose (UA) Neg mg/dL (Negative) 12/18/17 18:35 Urine Ketones Tr mg/dL (Negative) 12/18/17 18:35 Urine Blood Neg (Negative) 12/18/17 18:35 Urine Nitrite Neg (Negative) 12/18/17 18:35 Urine Bilirubin Neg (Negative) 12/18/17 18:35 Urine Urobilinogen < 2.0 mg/dL (<2.0) 12/18/17 18:35 Ur Leukocyte Esterase Neg (Negative) 12/18/17 18:35 Urine WBC (Auto) 2.0 /HPF (0.0-6.0) 12/18/17 18:35 Urine RBC (Auto) 5.0 /HPF (0.0-6.0) 12/18/17 18:35 U Epithel Cells (Auto) < 1.0 /HPF (0-13.0) 12/18/17 18:35 Urine Mucus Few /HPF 12/18/17 18:35 Blood Type O POSITIVE 12/18/17 12:10 Antibody Screen Negative 12/18/17 12:10
--- NOTE | 2017-12-22 14:31 | Progress Note ---
Assessment and Plan 87 y/o female with afib with RVR, subsequent fluid overload with right lower lobe infiltrate, residual pneumonia from prior diagnosis. 1. Hold lasix today. No chemistry done so not sure what K is 2. continue zosyn, despite negative cultures, patient has improved with this. Likely will need about 7 days total of abx therapy. 4. Cards following, will review their note and recs. 5. Wean FiO2 for sats >88%. Steroids stopped and I have stopped nebulizer treatments. 6. This may have been all volume overload, but tough to say. Best option is to treat with abx for at least 7 days. Encourage OOB to chair and ambulation. may need lasix therapy at home. patient does have diastolic dysfunction and suffers from HTN. Would suggest daily PO lasix. Subjective Date of service: 12/22/17 Interval history: Overall improving but still with nausea. Not sure why unless its related to abx. Per patient has a BM/day. No abdominal pain. Breathing is improving. Down to 2 liters NC Objective Vital Signs - 12hr 12/22/17 04:54 Temperature 98.1 F Pulse Rate 59 L Respiratory 18 Rate Blood Pressure 155/52 O2 Sat by Pulse 94 Oximetry Constitutional: no acute distress, alert Eyes: non-icteric ENT: oropharynx moist Neck: supple Effort: mildly labored Ascultation: Bilateral: rales, rhonchi Percussion: Bilateral: not dull Tactile fremitus: Bilateral: normal Cardiovascular: regular rate and rhythm Gastrointestinal: normoactive bowel sounds, soft, non-tender Extremities: edema Neurologic: normal mental status, non-focal exam Psychiatric: mood appropriate, affect normal CBC and BMP: 12/21/17 05:04 12/20/17 06:23 ABG, PT/INR, D-dimer: ABG POC ABG pH 7.487 (7.35-7.45) H 12/18/17 14:30 POC ABG pCO2 32.6 (35-45) L 12/18/17 14:30 POC ABG pO2 65 (80-105) L 12/18/17 14:30 POC ABG HCO3 24.7 12/18/17 14:30 POC ABG Total CO2 26 12/18/17 14:30 POC ABG O2 Sat 94 12/18/17 14:30 PT/INR, D-dimer PT 16.5 Sec. (12.2-14.9) H 12/18/17 12:10 INR 1.26 (0.87-1.13) H 12/18/17 12:10 Abnormal lab findings: Abnormal Labs 12/18/17 12/18/17 12/18/17 12:10 12:10 12:10 WBC 24.0 H RBC RDW 13.0 L Plt Count 460 H Seg Neuts % (Manual) 84.0 H Lymphocytes % (Manual) 2.0 L Monocytes % (Manual) Seg Neutrophils # Man 20.2 H Lymphocytes # (Manual) 0.5 L Monocytes # (Manual) 1.4 H PT INR POC ABG pH POC ABG pCO2 POC ABG pO2 VBG pH BUN 23 H Creatinine 0.6 L Glucose 140 H Lactic Acid 2.20 H* Calcium 8.0 L Magnesium Total Creatine Kinase CK-MB (CK-2) Rel Index NT-Pro-B Natriuret Pep Total Protein 5.8 L Albumin 3.0 L Free T4 12/18/17 12/18/17 12/18/17 12:10 12:10 12:10 WBC RBC RDW Plt Count Seg Neuts % (Manual) Lymphocytes % (Manual) Monocytes % (Manual) Seg Neutrophils # Man Lymphocytes # (Manual) Monocytes # (Manual) PT 16.5 H INR 1.26 H POC ABG pH POC ABG pCO2 POC ABG pO2 VBG pH BUN Creatinine Glucose Lactic Acid Calcium Magnesium 1.60 L Total Creatine Kinase 21 L CK-MB (CK-2) Rel Index 9.5 H NT-Pro-B Natriuret Pep 1948 H Total Protein Albumin Free T4 12/18/17 12/18/17 12/19/17 12:10 14:30 04:36 WBC 20.3 H RBC RDW Plt Count Seg Neuts % (Manual) 90.0 H Lymphocytes % (Manual) 5.0 L Monocytes % (Manual) Seg Neutrophils # Man 18.3 H Lymphocytes # (Manual) 1.0 L Monocytes # (Manual) PT INR POC ABG pH 7.487 H POC ABG pCO2 32.6 L POC ABG pO2 65 L VBG pH 7.534 H BUN Creatinine Glucose Lactic Acid Calcium Magnesium Total Creatine Kinase CK-MB (CK-2) Rel Index NT-Pro-B Natriuret Pep Total Protein Albumin Free T4 12/19/17 12/20/17 12/20/17 04:36 06:23 06:23 WBC 19.3 H RBC RDW 13.1 L Plt Count Seg Neuts % (Manual) 96.0 H Lymphocytes % (Manual) 2.0 L Monocytes % (Manual) Seg Neutrophils # Man 18.5 H Lymphocytes # (Manual) 0.4 L Monocytes # (Manual) PT INR POC ABG pH POC ABG pCO2 POC ABG pO2 VBG pH BUN 24 H Creatinine Glucose 146 H Lactic Acid Calcium 7.8 L 7.9 L Magnesium Total Creatine Kinase CK-MB (CK-2) Rel Index NT-Pro-B Natriuret Pep Total Protein 6.2 L Albumin 2.4 L Free T4 12/20/17 12/21/17 06:23 05:04 WBC 20.5 H RBC 3.57 L RDW 12.8 L Plt Count Seg Neuts % (Manual) Lymphocytes % (Manual) 12.0 L Monocytes % (Manual) 15.0 H Seg Neutrophils # Man 13.5 H Lymphocytes # (Manual) Monocytes # (Manual) 3.1 H PT INR POC ABG pH POC ABG pCO2 POC ABG pO2 VBG pH BUN Creatinine Glucose Lactic Acid Calcium Magnesium Total Creatine Kinase CK-MB (CK-2) Rel Index NT-Pro-B Natriuret Pep Total Protein Albumin Free T4 1.66 H
[2017-12-23] MEDS: SYNTHROID PO SCH (06:31)
[2017-12-23] MEDS: ZOSYN/NS 4.5GM/100ML 4.5 GM/100 ML VIAL IV SCH ×3 (06:31→22:43)
--- NOTE | 2017-12-23 09:57 | Progress Note ---
Assessment and Plan Assessment and plan: --Intractable diarrhea; possible C. difficile, patient has history of C. difficile in the past Contact isolation, oral Flagyl, stool evaluation, IV fluids, Lomotil as needed Consider ID evaluation if needed --A. fib with rapid ventricular rate; pleasant on admission Now rate controlled , continue Cardizem, beta blockers, Eliquis, Cardiology Following --Right lower lobe pneumonia; continue current antibiotics, follow cultures Pulmonary following, probably residual pneumonia from recent illness --Hypertension; moderate control, continue current antihypertensives and when necessary medications --Dyslipidemia; stable on lipid-lowering medications --History of hypothyroidism; continue Synthroid, --DVT prophylaxis with Lovenox and SCD --Full code DC planning. Case management Possible discharge home tomorrow with home health and home oxygen is already setup Plan of care is reviewed with the patient and her daughter at the bedside Answered all their questions History Interval history: Patient Seen and examined medical records reviewed Complaints of loose stool since last night, daughter at bedside reports patient had history of C. difficile in the past Patient complaints of generalized weakness Denies chest pain or shortness of breath Vital signs Reviewed Hospitalist Physical - Constitutional Vitals: Temp Pulse Resp BP Pulse Ox 97.2 F L 63 20 154/47 94 12/23/17 09:43 12/23/17 09:43 12/23/17 09:43 12/23/17 09:43 12/23/17 09:43 General appearance: Present: no acute distress, well-nourished - EENT Eyes: Present: PERRL, EOM intact - Neck Neck: Present: supple, normal ROM - Respiratory Respiratory effort: normal Respiratory: bilateral: diminished, negative: rales, rhonchi, wheezing - Cardiovascular Rhythm: regular Heart Sounds: Present: S1 & S2 - Extremities Extremities: no ischemia, No edema - Abdominal General gastrointestinal: soft, non-tender, non-distended, normal bowel sounds - Integumentary Integumentary: Present: clear, warm - Psychiatric Psychiatric: appropriate mood/affect, cooperative - Neurologic Neurologic: CNII-XII intact, moves all extremities Results - Labs CBC & Chem 7: 12/21/17 05:04 12/20/17 06:23 Labs: Laboratory Last Values WBC 20.5 K/mm3 (4.5-11.0) H 12/21/17 05:04 RBC 3.57 M/mm3 (3.65-5.03) L 12/21/17 05:04 Hgb 10.7 gm/dl (10.1-14.3) 12/21/17 05:04 Hct 32.0 % (30.3-42.9) 12/21/17 05:04 MCV 90 fl (79-97) 12/21/17 05:04 MCH 30 pg (28-32) 12/21/17 05:04 MCHC 34 % (30-34) 12/21/17 05:04 RDW 12.8 % (13.2-15.2) L 12/21/17 05:04 Plt Count 395 K/mm3 (140-440) 12/21/17 05:04 Add Manual Diff Complete 12/21/17 05:04 Total Counted 100 12/21/17 05:04 Seg Neutrophils % Smoking Tobacco Packer Hand 12/21/17 05:04 Seg Neuts % (Manual) 66.0 % (40.0-70.0) 12/21/17 05:04 Band Neutrophils % 6.0 % 12/21/17 05:04 Lymphocytes % (Manual) 12.0 % (13.4-35.0) L 12/21/17 05:04 Reactive Lymphs % (Man) 0 % 12/21/17 05:04 Monocytes % (Manual) 15.0 % (0.0-7.3) H 12/21/17 05:04 Eosinophils % (Manual) 0 % (0.0-4.3) 12/21/17 05:04 Basophils % (Manual) 0 % (0.0-1.8) 12/20/17 06:23 Metamyelocytes % 1.0 % 12/21/17 05:04 Myelocytes % 0 % 12/21/17 05:04 Promyelocytes % 0 % 12/21/17 05:04 Blast Cells % 0 % 12/21/17 05:04 Nucleated RBC % Not Reportable 12/21/17 05:04 Seg Neutrophils # Man 13.5 K/mm3 (1.8-7.7) H 12/21/17 05:04 Band Neutrophils # 1.2 K/mm3 12/21/17 05:04 Lymphocytes # (Manual) 2.5 K/mm3 (1.2-5.4) 12/21/17 05:04 Abs React Lymphs (Man) 0.0 K/mm3 12/21/17 05:04 Monocytes # (Manual) 3.1 K/mm3 (0.0-0.8) H 12/21/17 05:04 Eosinophils # (Manual) 0.0 K/mm3 (0.0-0.4) 12/21/17 05:04 Basophils # (Manual) 0.0 K/mm3 (0.0-0.1) 12/21/17 05:04 Metamyelocytes # 0.2 K/mm3 12/21/17 05:04 Myelocytes # 0.0 K/mm3 12/21/17 05:04 Promyelocytes # 0.0 K/mm3 12/21/17 05:04 Blast Cells # 0.0 K/mm3 12/21/17 05:04 WBC Morphology Not Reportable 12/21/17 05:04 Hypersegmented Neuts Not Reportable 12/21/17 05:04 Hyposegmented Neuts Not Reportable 12/21/17 05:04 Hypogranular Neuts Not Reportable 12/21/17 05:04 Smudge Cells Not Reportable 12/21/17 05:04 Toxic Granulation Not Reportable 12/21/17 05:04 Toxic Vacuolation Not Reportable 12/21/17 05:04 Dohle Bodies Not Reportable 12/21/17 05:04 Pelger-Huet Anomaly Not Reportable 12/21/17 05:04 Andrei Rods Not Reportable 12/21/17 05:04 Platelet Estimate Appears normal 12/21/17 05:04 Clumped Platelets Not Reportable 12/21/17 05:04 Plt Clumps, EDTA Not Reportable 12/21/17 05:04 Large Platelets Not Reportable 12/21/17 05:04 Giant Platelets Not Reportable 12/21/17 05:04 Platelet Satelliting Not Reportable 12/21/17 05:04 Plt Morphology Comment Not Reportable 12/21/17 05:04 RBC Morphology Not Reportable 12/21/17 05:04 Dimorphic RBCs Not Reportable 12/21/17 05:04 Polychromasia Not Reportable 12/21/17 05:04 Hypochromasia Not Reportable 12/21/17 05:04 Poikilocytosis Not Reportable 12/21/17 05:04 Anisocytosis Not Reportable 12/21/17 05:04 Microcytosis Not Reportable 12/21/17 05:04 Macrocytosis Not Reportable 12/21/17 05:04 Spherocytes Not Reportable 12/21/17 05:04 Pappenheimer Bodies Not Reportable 12/21/17 05:04 Sickle Cells Not Reportable 12/21/17 05:04 Target Cells Not Reportable 12/21/17 05:04 Tear Drop Cells Not Reportable 12/21/17 05:04 Ovalocytes Not Reportable 12/21/17 05:04 Helmet Cells Not Reportable 12/21/17 05:04 [place] Bodies Not Reportable 12/21/17 05:04 [place] Rings Not Reportable 12/21/17 05:04 [place] Cells Not Reportable 12/21/17 05:04 Bite Cells Not Reportable 12/21/17 05:04 Crenated Cell Not Reportable 12/21/17 05:04 Elliptocytes Not Reportable 12/21/17 05:04 Acanthocytes (Spur) Not Reportable 12/21/17 05:04 Rouleaux Not Reportable 12/21/17 05:04 Hemoglobin C Crystals Not Reportable 12/21/17 05:04 Schistocytes Not Reportable 12/21/17 05:04 Malaria parasites Not Reportable 12/21/17 05:04 Chriss Bodies Not Reportable 12/21/17 05:04 Hem Pathologist Commnt No 12/21/17 05:04 PT 16.5 Sec. (12.2-14.9) H 12/18/17 12:10 INR 1.26 (0.87-1.13) H 12/18/17 12:10 POC ABG pH 7.487 (7.35-7.45) H 12/18/17 14:30 POC ABG pCO2 32.6 (35-45) L 12/18/17 14:30 POC ABG pO2 65 (80-105) L 12/18/17 14:30 POC ABG HCO3 24.7 12/18/17 14:30 POC ABG Total CO2 26 12/18/17 14:30 POC ABG O2 Sat 94 12/18/17 14:30 POC ABG Base Excess 1 12/18/17 14:30 VBG pH 7.534 (7.320-7.420) H 12/18/17 12:10 FiO2 28 % 12/18/17 14:30 Sodium 145 mmol/L (137-145) 12/20/17 06:23 Potassium 3.7 mmol/L (3.6-5.0) 12/20/17 06:23 Chloride 100.1 mmol/L (98-107) 12/20/17 06:23 Carbon Dioxide 24 mmol/L (22-30) 12/20/17 06:23 Anion Gap 25 mmol/L 12/20/17 06:23 BUN 24 mg/dL (7-17) H 12/20/17 06:23 Creatinine 0.7 mg/dL (0.7-1.2) 12/20/17 06:23 Estimated GFR > 60 ml/min 12/20/17 06:23 BUN/Creatinine Ratio 34 % 12/20/17 06:23 Glucose 146 mg/dL (65-100) H 12/20/17 06:23 Lactic Acid 1.00 mmol/L (0.7-2.0) 12/19/17 04:36 Calcium 7.9 mg/dL (8.4-10.2) L 12/20/17 06:23 Magnesium 1.60 mg/dL (1.7-2.3) L 12/18/17 12:10 Total Bilirubin 0.50 mg/dL (0.1-1.2) 12/19/17 04:36 Direct Bilirubin 0.2 mg/dL (0-0.2) 12/18/17 12:10 Indirect Bilirubin 0.3 mg/dL 12/18/17 12:10 AST 18 units/L (5-40) 12/19/17 04:36 ALT 18 units/L (7-56) 12/19/17 04:36 Alkaline Phosphatase 72 units/L (35-129) 12/19/17 04:36 Total Creatine Kinase 21 units/L (30-135) L 12/18/17 12:10 CK-MB (CK-2) 2.0 ng/mL (0.0-4.0) 12/18/17 12:10 CK-MB (CK-2) Rel Index 9.5 (0-4) H 12/18/17 12:10 Troponin T < 0.010 ng/mL (0.00-0.029) 12/18/17 12:10 NT-Pro-B Natriuret Pep 1948 pg/mL (0-900) H 12/18/17 12:10 Total Protein 6.2 g/dL (6.3-8.2) L 12/19/17 04:36 Albumin 2.4 g/dL (3.9-5) L 12/19/17 04:36 Albumin/Globulin Ratio 0.6 % 12/19/17 04:36 TSH 0.311 mlU/mL (0.270-4.200) 12/20/17 06:23 Free T4 1.66 ng/dL (0.76-1.46) H 12/20/17 06:23 Urine Color Yellow (Yellow) 12/18/17 18:35 Urine Turbidity Clear (Clear) 12/18/17 18:35 Urine pH 5.0 (5.0-7.0) 12/18/17 18:35 Ur Specific [place] 1.021 (1.003-1.030) 12/18/17 18:35 Urine Protein 30 mg/dl mg/dL (Negative) 12/18/17 18:35 Urine Glucose (UA) Neg mg/dL (Negative) 12/18/17 18:35 Urine Ketones Tr mg/dL (Negative) 12/18/17 18:35 Urine Blood Neg (Negative) 12/18/17 18:35 Urine Nitrite Neg (Negative) 12/18/17 18:35 Urine Bilirubin Neg (Negative) 12/18/17 18:35 Urine Urobilinogen < 2.0 mg/dL (<2.0) 12/18/17 18:35 Ur Leukocyte Esterase Neg (Negative) 12/18/17 18:35 Urine WBC (Auto) 2.0 /HPF (0.0-6.0) 12/18/17 18:35 Urine RBC (Auto) 5.0 /HPF (0.0-6.0) 12/18/17 18:35 U Epithel Cells (Auto) < 1.0 /HPF (0-13.0) 12/18/17 18:35 Urine Mucus Few /HPF 12/18/17 18:35 Blood Type O POSITIVE 12/18/17 12:10 Antibody Screen Negative 12/18/17 12:10
[2017-12-23] MEDS: LASIX PO SCH (11:00)
[2017-12-23] MEDS: ELIQUIS PO SCH ×2 (11:00→22:43)
[2017-12-23] MEDS: CARDIZEM CD PO SCH (11:00)
[2017-12-23] MEDS: ZESTRIL PO SCH (11:00)
--- NOTE | 2017-12-23 12:36 | Progress Note ---
Assessment and Plan Pneumonia History of multiple admissions for pneumonia recently Biapical scarring and pleural thickening on CXR suggesting underlying pulmonary fibrosis Paroxysmal atrial fibrillation currently in sinus rhythm on diltiazem Anticoagulated with eliquis as outpatient Normal LVEF by echo with mild to moderate mitral stenosis. Thyroid disorder Systemic Hypertension Hyperlipidemia Recommend: Low dose diltiazem and oral anticoagulation for paroxysmal atrial fibrillation. Subjective Date of service: 12/23/17 Interval history: No cardiac events reported. Family member at bedside. Objective Vital Signs Temp Pulse Resp BP BP Pulse Ox 12/23/17 11:00 61 154/47 12/23/17 10:00 94 12/23/17 09:43 97.2 F L 63 20 154/47 94 12/23/17 08:23 97.2 F L 61 18 154/47 94 12/23/17 05:03 98.2 F 60 18 155/50 93 12/23/17 04:13 158/49 12/23/17 00:47 98.1 F 55 L 20 158/49 97 12/23/17 00:22 54 L 158/49 96 12/22/17 22:00 59 L 12/22/17 20:26 98 F 56 L 20 100/40 94 12/22/17 19:44 57 L 140/40 89 12/22/17 16:24 54 L 136/41 94 12/22/17 15:28 97.4 F L 56 L 20 130/39 93 12/22/17 15:26 97.4 F L 54 L 20 130/39 92 - Physical Examination General: No Apparent Distress HEENT: Positive: Pallor Cardiac: Positive: Reg Rate and Rhythm
[2017-12-23] MEDS ORDERED: LOMOTIL PO ONE (14:00)
--- NOTE | 2017-12-23 15:47 | Progress Note ---
Assessment and Plan Imp: 1. Bronchiectasis on 2010 CT chest (reviewed [facility] images), RML and lingula 2. Pneumonia in setting of #1, r/o aspiration 3. OP dysphagia 4. Acute respiratory failure, hypoxia 5. Mitral stenosis 6. Mild pulm HTN Rec: 1. Cont. Zosyn; sputum culture negative 2. In light of #1 above, add chest PT, Mucinex BID, and mucomyst nebs 3. ST evaluation 4. CXR in AM; plan CT chest if no improvement Plan of care reviewed with patient/family, they understand/agree Subjective Date of service: 12/23/17 Principal diagnosis: Pneumonia Interval history: No events. Still coughing up green/yellow sputum. Still with SOB, and some wheezing. + Diarrhea, new. Hx of Cdiff reported. Active Medications Al Hydrox/Mg Hydrox/Simethicone (Alum-Mag Hydrox-Simeth [id number]/5ml) 30 ml PO Q4H PRN PRN Reason: Indigestion Alprazolam (Xanax) 0.25 mg PO Q8H PRN PRN Reason: Anxiety Apixaban (Eliquis) 2.5 mg PO BID [facility] PRN Reason: Protocol Last Admin: 12/23/17 11:00 Dose: 2.5 mg Atorvastatin Calcium (Lipitor) 20 mg PO [facility] Last Admin: 12/19/17 22:20 Dose: 20 mg Atorvastatin Calcium (Lipitor) 20 mg PO [facility] Bisacodyl (Dulcolax) 10 mg [place] QDAY PRN PRN Reason: constipation unrelieved by MOM Diltiazem HCl (Cardizem Cd) 120 mg PO QDAY [facility] Last Admin: 12/23/17 11:00 Dose: 120 mg Diphenoxylate HCl/Atropine (Lomotil) 1 tab PO Q6H PRN PRN Reason: Diarrhea Furosemide (Lasix) 20 mg PO QDAY [facility] Last Admin: 12/23/17 11:00 Dose: 20 mg Hydromorphone HCl (Dilaudid) 0.5 mg IV Q3H PRN PRN Reason: Pain , Severe (7-10) Piperacillin Sod/Tazobactam Sod (Zosyn/Ns 4.5gm/100ml) 4.5 gm in 100 mls @ 200 mls/hr IV Q8HR ABHIJIT PRN Reason: Protocol Last Admin: 12/23/17 06:31 Dose: 200 mls/hr Levothyroxine Sodium (Synthroid) 50 mcg PO QDAY@0600 [facility] Last Admin: 12/23/17 06:31 Dose: 50 mcg Lisinopril (Zestril) 5 mg PO QDAY [facility] Last Admin: 12/23/17 11:00 Dose: 5 mg Magnesium Hydroxide (Milk Of Magnesia) 30 ml PO Q4H PRN PRN Reason: Constipation Metronidazole (Flagyl) 500 mg PO Q8HR [facility] Morphine Sulfate (Morphine) 4 mg IV Q4H PRN PRN Reason: Pain , Severe (7-10) Ondansetron HCl (Zofran) 4 mg IV Q6H PRN PRN Reason: Nausea And Vomiting Last Admin: 12/22/17 01:41 Dose: 4 mg Oxycodone/Acetaminophen (Percocet 5/325) 1 tab PO Q6H PRN PRN Reason: Pain, Moderate (4-6) Objective Vital Signs - 12hr 12/23/17 12/23/17 12/23/17 04:13 05:03 08:23 Temperature 98.2 F 97.2 F L Pulse Rate 60 61 Respiratory 18 18 Rate Blood Pressure 158/49 154/47 Blood Pressure 155/50 [Right] O2 Sat by Pulse 93 94 Oximetry 12/23/17 12/23/17 12/23/17 09:43 10:00 11:00 Temperature 97.2 F L Pulse Rate 63 61 Respiratory 20 Rate Blood Pressure 154/47 Blood Pressure 154/47 [Right] O2 Sat by Pulse 94 94 Oximetry 12/23/17 13:11 Temperature 97.5 F L Pulse Rate 61 Respiratory 18 Rate Blood Pressure Blood Pressure 159/57 [Right] O2 Sat by Pulse 97 Oximetry Constitutional: no acute distress, alert Eyes: non-icteric ENT: oropharynx moist Neck: supple Effort: mildly labored Ascultation: Bilateral: rales, rhonchi Cardiovascular: regular rate and rhythm Gastrointestinal: normoactive bowel sounds, soft, non-tender Integumentary: normal Extremities: no cyanosis, no edema, pink and warm Neurologic: normal mental status, non-focal exam Psychiatric: mood appropriate, affect normal CBC and BMP: 12/21/17 05:04 12/20/17 06:23 ABG, PT/INR, D-dimer: ABG POC ABG pH 7.487 (7.35-7.45) H 12/18/17 14:30 POC ABG pCO2 32.6 (35-45) L 12/18/17 14:30 POC ABG pO2 65 (80-105) L 12/18/17 14:30 POC ABG HCO3 24.7 12/18/17 14:30 POC ABG Total CO2 26 12/18/17 14:30 POC ABG O2 Sat 94 12/18/17 14:30 PT/INR, D-dimer PT 16.5 Sec. (12.2-14.9) H 12/18/17 12:10 INR 1.26 (0.87-1.13) H 12/18/17 12:10 Abnormal lab findings: Abnormal Labs 12/18/17 12/18/17 12/18/17 12:10 12:10 12:10 WBC 24.0 H RBC RDW 13.0 L Plt Count 460 H Seg Neuts % (Manual) 84.0 H Lymphocytes % (Manual) 2.0 L Monocytes % (Manual) Seg Neutrophils # Man 20.2 H Lymphocytes # (Manual) 0.5 L Monocytes # (Manual) 1.4 H PT INR POC ABG pH POC ABG pCO2 POC ABG pO2 VBG pH BUN 23 H Creatinine 0.6 L Glucose 140 H Lactic Acid 2.20 H* Calcium 8.0 L Magnesium Total Creatine Kinase CK-MB (CK-2) Rel Index NT-Pro-B Natriuret Pep Total Protein 5.8 L Albumin 3.0 L Free T4 12/18/17 12/18/17 12/18/17 12:10 12:10 12:10 WBC RBC RDW Plt Count Seg Neuts % (Manual) Lymphocytes % (Manual) Monocytes % (Manual) Seg Neutrophils # Man Lymphocytes # (Manual) Monocytes # (Manual) PT 16.5 H INR 1.26 H POC ABG pH POC ABG pCO2 POC ABG pO2 VBG pH BUN Creatinine Glucose Lactic Acid Calcium Magnesium 1.60 L Total Creatine Kinase 21 L CK-MB (CK-2) Rel Index 9.5 H NT-Pro-B Natriuret Pep 1948 H Total Protein Albumin Free T4 12/18/17 12/18/17 12/19/17 12:10 14:30 04:36 WBC 20.3 H RBC RDW Plt Count Seg Neuts % (Manual) 90.0 H Lymphocytes % (Manual) 5.0 L Monocytes % (Manual) Seg Neutrophils # Man 18.3 H Lymphocytes # (Manual) 1.0 L Monocytes # (Manual) PT INR POC ABG pH 7.487 H POC ABG pCO2 32.6 L POC ABG pO2 65 L VBG pH 7.534 H BUN Creatinine Glucose Lactic Acid Calcium Magnesium Total Creatine Kinase CK-MB (CK-2) Rel Index NT-Pro-B Natriuret Pep Total Protein Albumin Free T4 12/19/17 12/20/17 12/20/17 04:36 06:23 06:23 WBC 19.3 H RBC RDW 13.1 L Plt Count Seg Neuts % (Manual) 96.0 H Lymphocytes % (Manual) 2.0 L Monocytes % (Manual) Seg Neutrophils # Man 18.5 H Lymphocytes # (Manual) 0.4 L Monocytes # (Manual) PT INR POC ABG pH POC ABG pCO2 POC ABG pO2 VBG pH BUN 24 H Creatinine Glucose 146 H Lactic Acid Calcium 7.8 L 7.9 L Magnesium Total Creatine Kinase CK-MB (CK-2) Rel Index NT-Pro-B Natriuret Pep Total Protein 6.2 L Albumin 2.4 L Free T4 12/20/17 12/21/17 06:23 05:04 WBC 20.5 H RBC 3.57 L RDW 12.8 L Plt Count Seg Neuts % (Manual) Lymphocytes % (Manual) 12.0 L Monocytes % (Manual) 15.0 H Seg Neutrophils # Man 13.5 H Lymphocytes # (Manual) Monocytes # (Manual) 3.1 H PT INR POC ABG pH POC ABG pCO2 POC ABG pO2 VBG pH BUN Creatinine Glucose Lactic Acid Calcium Magnesium Total Creatine Kinase CK-MB (CK-2) Rel Index NT-Pro-B Natriuret Pep Total Protein Albumin Free T4 1.66 H Chest x-ray: report reviewed, image reviewed
[2017-12-23] MEDS: FLAGYL PO SCH ×2 (15:52→22:43)
[2017-12-23] MEDS: MUCINEX ER PO SCH (22:43)
[2017-12-23] MEDS: MUCOMYST INHALATION INHALATION SCH (23:03)
[2017-12-24] MEDS ORDERED: CARDIZEM PO SCH (06:00)
[2017-12-24] MEDS: ZOSYN/NS 4.5GM/100ML 4.5 GM/100 ML VIAL IV SCH ×3 (06:14→21:42)
[2017-12-24] MEDS: FLAGYL PO SCH ×3 (06:15→21:44)
[2017-12-24] MEDS: SYNTHROID PO SCH (06:15)
[2017-12-24] MEDS: CARDIZEM PO SCH ×3 (06:18→21:43)
[2017-12-24 06:37] LABS: Basophils % (Auto) 0.1 % (0.0-1.8); Eosinophils # (Auto) 0.2 K/mm3 (0.0-0.4); Eosinophils % (Auto) 1.1 % (0.0-4.3); Hematocrit 33.4 % (30.3-42.9); Hemoglobin 10.7 gm/dl (10.1-14.3); Lymphocytes # (Auto) 2.3 K/mm3 (1.2-5.4); Lymphocytes % (Auto) 15.6 % (13.4-35.0); Mean Corpuscular HGB Conc 32 % (30-34); Mean Corpuscular Hemoglobin 29 pg (28-32); Mean Corpuscular Volume 91 fl (79-97); Monocytes # (Auto) 1.1 K/mm3 (0.0-0.8); Monocytes % (Auto) 7.8 % (0.0-7.3); Platelet Count 371 K/mm3 (140-440); Red Blood Count 3.67 M/mm3 (3.65-5.03); Red Cell Distribution Width 12.9 % (13.2-15.2)
[2017-12-24 06:46] LABS: BUN/Creatinine Ratio 28; Blood Urea Nitrogen 17 mg/dL (7-17); Calcium 7.6 mg/dL (8.4-10.2); Hemolysis Index 7
--- NOTE | 2017-12-24 08:32 | XRay Report ---
AP CHEST: HISTORY: Pneumonia Bibasilar infiltrates appear relatively stable since 12/18/17. The upper lung zones remain clear. Trace pleural effusions are suspected. Heart size is within normal limits. The bony structures are intact. IMPRESSION: No change.
[2017-12-24] MEDS: LOMOTIL PO PRN ×2 (08:38→14:54)
--- NOTE | 2017-12-24 09:09 | Progress Note ---
Assessment and Plan Assessment and plan: --Intractable diarrhea; possible C. difficile, patient has history of C. difficile in the past Mild improvement , C. difficile test is negative Contact isolation, oral Flagyl, stool evaluation, IV fluids, Lomotil as needed Consider ID evaluation if no improvement --A. fib with rapid ventricular rate; pleasant on admission Now rate controlled , continue Cardizem, beta blockers, Eliquis, Cardiology Following --Right lower lobe pneumonia; continue current antibiotics, follow cultures Pulmonary following, probably residual pneumonia from recent illness --Hypertension; moderate control, continue current antihypertensives and when necessary medications --Dyslipidemia; stable on lipid-lowering medications --History of hypothyroidism; continue Synthroid, --DVT prophylaxis with Lovenox and SCD --Full code DC planning. Case management Possible discharge home tomorrow with home health and home oxygen is already setup Plan of care is reviewed with the patient and her daughter at the bedside Answered all their questions History Interval history: Patient seen and examined medical records reviewed Feels slightly better, slight improvement in diet. CT negative Denies any chest pain, mild shortness of breath Alert awake oriented 3 Vital signs reviewed Hospitalist Physical - Constitutional Vitals: Temp Pulse Resp BP Pulse Ox 98.4 F 74 18 163/49 96 12/23/17 19:54 12/24/17 06:18 12/23/17 19:54 12/24/17 06:18 12/24/17 06:16 General appearance: Present: no acute distress, well-nourished - EENT Eyes: Present: PERRL, EOM intact - Neck Neck: Present: supple - Respiratory Respiratory effort: normal Respiratory: bilateral: diminished, rales, negative: rhonchi, wheezing - Cardiovascular Rhythm: regular Heart Sounds: Present: S1 & S2 - Extremities Extremities: no ischemia, No edema - Abdominal General gastrointestinal: soft, non-tender, non-distended - Integumentary Integumentary: Present: clear, warm - Psychiatric Psychiatric: appropriate mood/affect, cooperative - Neurologic Neurologic: CNII-XII intact, moves all extremities Results - Labs CBC & Chem 7: 12/24/17 06:05 12/24/17 06:05 Labs: Laboratory Last Values WBC 14.5 K/mm3 (4.5-11.0) H 12/24/17 06:05 RBC 3.67 M/mm3 (3.65-5.03) 12/24/17 06:05 Hgb 10.7 gm/dl (10.1-14.3) 12/24/17 06:05 Hct 33.4 % (30.3-42.9) 12/24/17 06:05 MCV 91 fl (79-97) 12/24/17 06:05 MCH 29 pg (28-32) 12/24/17 06:05 MCHC 32 % (30-34) 12/24/17 06:05 RDW 12.9 % (13.2-15.2) L 12/24/17 06:05 Plt Count 371 K/mm3 (140-440) 12/24/17 06:05 Lymph % (Auto) 15.6 % (13.4-35.0) 12/24/17 06:05 [place] % (Auto) 7.8 % (0.0-7.3) H 12/24/17 06:05 Eos % (Auto) 1.1 % (0.0-4.3) 12/24/17 06:05 Baso % (Auto) 0.1 % (0.0-1.8) 12/24/17 06:05 Lymph # 2.3 K/mm3 (1.2-5.4) 12/24/17 06:05 [place] # 1.1 K/mm3 (0.0-0.8) H 12/24/17 06:05 Eos # 0.2 K/mm3 (0.0-0.4) 12/24/17 06:05 Baso # 0.0 K/mm3 (0.0-0.1) 12/24/17 06:05 Add Manual Diff Complete 12/21/17 05:04 Total Counted 100 12/21/17 05:04 Seg Neutrophils % 75.4 % (40.0-70.0) H 12/24/17 06:05 Seg Neuts % (Manual) 66.0 % (40.0-70.0) 12/21/17 05:04 Band Neutrophils % 6.0 % 12/21/17 05:04 Lymphocytes % (Manual) 12.0 % (13.4-35.0) L 12/21/17 05:04 Reactive Lymphs % (Man) 0 % 12/21/17 05:04 Monocytes % (Manual) 15.0 % (0.0-7.3) H 12/21/17 05:04 Eosinophils % (Manual) 0 % (0.0-4.3) 12/21/17 05:04 Basophils % (Manual) 0 % (0.0-1.8) 12/20/17 06:23 Metamyelocytes % 1.0 % 12/21/17 05:04 Myelocytes % 0 % 12/21/17 05:04 Promyelocytes % 0 % 12/21/17 05:04 Blast Cells % 0 % 12/21/17 05:04 Nucleated RBC % Not Reportable 12/21/17 05:04 Seg Neutrophils # 11.0 K/mm3 (1.8-7.7) H 12/24/17 06:05 Seg Neutrophils # Man 13.5 K/mm3 (1.8-7.7) H 12/21/17 05:04 Band Neutrophils # 1.2 K/mm3 12/21/17 05:04 Lymphocytes # (Manual) 2.5 K/mm3 (1.2-5.4) 12/21/17 05:04 Abs React Lymphs (Man) 0.0 K/mm3 12/21/17 05:04 Monocytes # (Manual) 3.1 K/mm3 (0.0-0.8) H 12/21/17 05:04 Eosinophils # (Manual) 0.0 K/mm3 (0.0-0.4) 12/21/17 05:04 Basophils # (Manual) 0.0 K/mm3 (0.0-0.1) 12/21/17 05:04 Metamyelocytes # 0.2 K/mm3 12/21/17 05:04 Myelocytes # 0.0 K/mm3 12/21/17 05:04 Promyelocytes # 0.0 K/mm3 12/21/17 05:04 Blast Cells # 0.0 K/mm3 12/21/17 05:04 WBC Morphology Not Reportable 12/21/17 05:04 Hypersegmented Neuts Not Reportable 12/21/17 05:04 Hyposegmented Neuts Not Reportable 12/21/17 05:04 Hypogranular Neuts Not Reportable 12/21/17 05:04 Smudge Cells Not Reportable 12/21/17 05:04 Toxic Granulation Not Reportable 12/21/17 05:04 Toxic Vacuolation Not Reportable 12/21/17 05:04 Dohle Bodies Not Reportable 12/21/17 05:04 Pelger-Huet Anomaly Not Reportable 12/21/17 05:04 Andrei Rods Not Reportable 12/21/17 05:04 Platelet Estimate Appears normal 12/21/17 05:04 Clumped Platelets Not Reportable 12/21/17 05:04 Plt Clumps, EDTA Not Reportable 12/21/17 05:04 Large Platelets Not Reportable 12/21/17 05:04 Giant Platelets Not Reportable 12/21/17 05:04 Platelet Satelliting Not Reportable 12/21/17 05:04 Plt Morphology Comment Not Reportable 12/21/17 05:04 RBC Morphology Not Reportable 12/21/17 05:04 Dimorphic RBCs Not Reportable 12/21/17 05:04 Polychromasia Not Reportable 12/21/17 05:04 Hypochromasia Not Reportable 12/21/17 05:04 Poikilocytosis Not Reportable 12/21/17 05:04 Anisocytosis Not Reportable 12/21/17 05:04 Microcytosis Not Reportable 12/21/17 05:04 Macrocytosis Not Reportable 12/21/17 05:04 Spherocytes Not Reportable 12/21/17 05:04 Pappenheimer Bodies Not Reportable 12/21/17 05:04 Sickle Cells Not Reportable 12/21/17 05:04 Target Cells Not Reportable 12/21/17 05:04 Tear Drop Cells Not Reportable 12/21/17 05:04 Ovalocytes Not Reportable 12/21/17 05:04 Helmet Cells Not Reportable 12/21/17 05:04 [place] Bodies Not Reportable 12/21/17 05:04 [place] Rings Not Reportable 12/21/17 05:04 [place] Cells Not Reportable 12/21/17 05:04 Bite Cells Not Reportable 12/21/17 05:04 Crenated Cell Not Reportable 12/21/17 05:04 Elliptocytes Not Reportable 12/21/17 05:04 Acanthocytes (Spur) Not Reportable 12/21/17 05:04 Rouleaux Not Reportable 12/21/17 05:04 Hemoglobin C Crystals Not Reportable 12/21/17 05:04 Schistocytes Not Reportable 12/21/17 05:04 Malaria parasites Not Reportable 12/21/17 05:04 Chriss Bodies Not Reportable 12/21/17 05:04 Hem Pathologist Commnt No 12/21/17 05:04 PT 16.5 Sec. (12.2-14.9) H 12/18/17 12:10 INR 1.26 (0.87-1.13) H 12/18/17 12:10 POC ABG pH 7.487 (7.35-7.45) H 12/18/17 14:30 POC ABG pCO2 32.6 (35-45) L 12/18/17 14:30 POC ABG pO2 65 (80-105) L 12/18/17 14:30 POC ABG HCO3 24.7 12/18/17 14:30 POC ABG Total CO2 26 12/18/17 14:30 POC ABG O2 Sat 94 12/18/17 14:30 POC ABG Base Excess 1 12/18/17 14:30 VBG pH 7.534 (7.320-7.420) H 12/18/17 12:10 FiO2 28 % 12/18/17 14:30 Sodium 146 mmol/L (137-145) H 12/24/17 06:05 Potassium 3.7 mmol/L (3.6-5.0) 12/24/17 06:05 Chloride 104.9 mmol/L (98-107) 12/24/17 06:05 Carbon Dioxide 32 mmol/L (22-30) H D 12/24/17 06:05 Anion Gap 13 mmol/L 12/24/17 06:05 BUN 17 mg/dL (7-17) 12/24/17 06:05 Creatinine 0.6 mg/dL (0.7-1.2) L 12/24/17 06:05 Estimated GFR > 60 ml/min 12/24/17 06:05 BUN/Creatinine Ratio 28 % 12/24/17 06:05 Glucose 90 mg/dL (65-100) 12/24/17 06:05 Lactic Acid 1.00 mmol/L (0.7-2.0) 12/19/17 04:36 Calcium 7.6 mg/dL (8.4-10.2) L 12/24/17 06:05 Magnesium 1.60 mg/dL (1.7-2.3) L 12/18/17 12:10 Total Bilirubin 0.50 mg/dL (0.1-1.2) 12/19/17 04:36 Direct Bilirubin 0.2 mg/dL (0-0.2) 12/18/17 12:10 Indirect Bilirubin 0.3 mg/dL 12/18/17 12:10 AST 18 units/L (5-40) 12/19/17 04:36 ALT 18 units/L (7-56) 12/19/17 04:36 Alkaline Phosphatase 72 units/L (35-129) 12/19/17 04:36 Total Creatine Kinase 21 units/L (30-135) L 12/18/17 12:10 CK-MB (CK-2) 2.0 ng/mL (0.0-4.0) 12/18/17 12:10 CK-MB (CK-2) Rel Index 9.5 (0-4) H 12/18/17 12:10 Troponin T < 0.010 ng/mL (0.00-0.029) 12/18/17 12:10 NT-Pro-B Natriuret Pep 1948 pg/mL (0-900) H 12/18/17 12:10 Total Protein 6.2 g/dL (6.3-8.2) L 12/19/17 04:36 Albumin 2.4 g/dL (3.9-5) L 12/19/17 04:36 Albumin/Globulin Ratio 0.6 % 12/19/17 04:36 TSH 0.311 mlU/mL (0.270-4.200) 12/20/17 06:23 Free T4 1.66 ng/dL (0.76-1.46) H 12/20/17 06:23 Urine Color Yellow (Yellow) 12/18/17 18:35 Urine Turbidity Clear (Clear) 12/18/17 18:35 Urine pH 5.0 (5.0-7.0) 12/18/17 18:35 Ur Specific [place] 1.021 (1.003-1.030) 12/18/17 18:35 Urine Protein 30 mg/dl mg/dL (Negative) 12/18/17 18:35 Urine Glucose (UA) Neg mg/dL (Negative) 12/18/17 18:35 Urine Ketones Tr mg/dL (Negative) 12/18/17 18:35 Urine Blood Neg (Negative) 12/18/17 18:35 Urine Nitrite Neg (Negative) 12/18/17 18:35 Urine Bilirubin Neg (Negative) 12/18/17 18:35 Urine Urobilinogen < 2.0 mg/dL (<2.0) 12/18/17 18:35 Ur Leukocyte Esterase Neg (Negative) 12/18/17 18:35 Urine WBC (Auto) 2.0 /HPF (0.0-6.0) 12/18/17 18:35 Urine RBC (Auto) 5.0 /HPF (0.0-6.0) 12/18/17 18:35 U Epithel Cells (Auto) < 1.0 /HPF (0-13.0) 12/18/17 18:35 Urine Mucus Few /HPF 12/18/17 18:35 C. difficile Toxin A&B Negative (Negative) 12/23/17 11:40 Blood Type O POSITIVE 12/18/17 12:10 Antibody Screen Negative 12/18/17 12:10
[2017-12-24] MEDS: ZESTRIL PO SCH (10:57)
[2017-12-24] MEDS: MUCINEX ER PO SCH ×2 (10:57→21:44)
[2017-12-24] MEDS: LASIX PO SCH (10:57)
[2017-12-24] MEDS: ELIQUIS PO SCH ×2 (10:57→21:44)
--- NOTE | 2017-12-24 11:41 | Progress Note ---
Assessment and Plan Pneumonia History of multiple admissions for pneumonia recently Biapical scarring and pleural thickening on CXR suggesting underlying pulmonary fibrosis Paroxysmal atrial fibrillation currently in sinus rhythm on low dose diltiazem Anticoagulated with eliquis as outpatient Normal LVEF by echo with mild to moderate mitral stenosis. Thyroid disorder Systemic Hypertension Hyperlipidemia Recommend: Continue low dose diltiazem and oral anticoagulation for paroxysmal atrial fibrillation. Subjective Date of service: 12/24/17 Principal diagnosis: Pneumonia Interval history: Patient with continued diarrhea. No cardiac events reported. Objective Vital Signs Temp Pulse Resp BP BP Pulse Ox 12/24/17 10:57 72 150/45 12/24/17 09:06 98.1 F 62 18 161/49 97 12/24/17 06:18 74 163/49 12/24/17 06:16 68 96 12/24/17 06:15 65 163/49 97 12/24/17 05:08 61 12/23/17 22:00 95 12/23/17 19:54 98.4 F 64 18 157/54 99 12/23/17 17:24 97.8 F 73 20 157/52 95 12/23/17 16:03 94 H 18 104/72 89 12/23/17 15:51 97.8 F 69 18 157/52 93 12/23/17 13:11 97.5 F L 61 18 159/57 97 12/23/17 11:43 97.5 F L 64 20 159/57 98 - Physical Examination General: No Apparent Distress HEENT: Positive: Pallor Cardiac: Positive: Reg Rate and Rhythm Lungs: Positive: Decreased Breath Sounds - Labs and Meds CBC 12/24/17 Range/Units 06:05 WBC 14.5 H (4.5-11.0) K/mm3 RBC 3.67 (3.65-5.03) M/mm3 Hgb 10.7 (10.1-14.3) gm/dl Hct 33.4 (30.3-42.9) % Plt Count 371 (140-440) K/mm3 Lymph # 2.3 (1.2-5.4) K/mm3 [place] # 1.1 H (0.0-0.8) K/mm3 Eos # 0.2 (0.0-0.4) K/mm3 Baso # 0.0 (0.0-0.1) K/mm3 Comprehensive Metabolic Panel 12/24/17 Range/Units 06:05 Sodium 146 H (137-145) mmol/L Potassium 3.7 (3.6-5.0) mmol/L Chloride 104.9 (98-107) mmol/L Carbon Dioxide 32 H D (22-30) mmol/L BUN 17 (7-17) mg/dL Creatinine 0.6 L (0.7-1.2) mg/dL Glucose 90 (65-100) mg/dL Calcium 7.6 L (8.4-10.2) mg/dL
[2017-12-24] MEDS: MUCOMYST INHALATION INHALATION SCH ×2 (11:54→21:25)
--- NOTE | 2017-12-24 15:01 | Progress Note ---
Assessment and Plan Imp: 1. Bronchiectasis on 2011 CT chest (reviewed [facility] images), RML and lingula 2. Pneumonia in setting of #1, r/o aspiration 3. OP dysphagia 4. Acute respiratory failure, hypoxia 5. Mitral stenosis 6. Mild pulm HTN Rec: 1. Cont. Zosyn; sputum culture negative 2. In light of #1 above, add chest PT, Mucinex BID, and mucomyst nebs 3. ST evaluation pending 4. PT/OOB/ambulate 5. Lactinex re: diarrhea Plan of care reviewed with patient/family, they understand/agree Subjective Date of service: 12/24/17 Principal diagnosis: Pneumonia Interval history: No events. Still coughing up green/yellow sputum but better today. Still with SOB, and some wheezing. + Diarrhea still. Active Medications Acetylcysteine (Mucomyst Inhalation) 200 mg INHALATION Q12HRT [facility] Last Admin: 12/24/17 11:54 Dose: Not Given Al Hydrox/Mg Hydrox/Simethicone (Alum-Mag Hydrox-Simeth [id number]/5ml) 30 ml PO Q4H PRN PRN Reason: Indigestion Alprazolam (Xanax) 0.25 mg PO Q8H PRN PRN Reason: Anxiety Apixaban (Eliquis) 2.5 mg PO BID [facility] PRN Reason: Protocol Last Admin: 12/24/17 10:57 Dose: 2.5 mg Atorvastatin Calcium (Lipitor) 20 mg PO Th [facility] Last Admin: 12/19/17 22:20 Dose: 20 mg Atorvastatin Calcium (Lipitor) 20 mg PO Foster [facility] Bisacodyl (Dulcolax) 10 mg HI QDAY PRN PRN Reason: constipation unrelieved by MOM Diltiazem HCl (Cardizem) 30 mg PO Q8HR [facility] Last Admin: 12/24/17 14:56 Dose: 30 mg Diphenoxylate HCl/Atropine (Lomotil) 1 tab PO Q6H PRN PRN Reason: Diarrhea Last Admin: 12/24/17 14:54 Dose: 1 tab Furosemide (Lasix) 20 mg PO QDAY [facility] Last Admin: 12/24/17 10:57 Dose: 20 mg Guaifenesin (Mucinex Er) 600 mg PO BID [facility] Last Admin: 12/24/17 10:57 Dose: 600 mg Hydromorphone HCl (Dilaudid) 0.5 mg IV Q3H PRN PRN Reason: Pain , Severe (7-10) Piperacillin Sod/Tazobactam Sod (Zosyn/Ns 4.5gm/100ml) 4.5 gm in 100 mls @ 200 mls/hr IV Q8HR ABHIJIT PRN Reason: Protocol Last Admin: 12/24/17 14:52 Dose: 200 mls/hr Lactobacillus Acidophilus (Lactinex) 1 each PO BID [facility] Levothyroxine Sodium (Synthroid) 50 mcg PO QDAY@0600 [facility] Last Admin: 12/24/17 06:15 Dose: 50 mcg Lisinopril (Zestril) 5 mg PO QDAY [facility] Last Admin: 12/24/17 10:57 Dose: 5 mg Magnesium Hydroxide (Milk Of Magnesia) 30 ml PO Q4H PRN PRN Reason: Constipation Metronidazole (Flagyl) 500 mg PO Q8HR [facility] Last Admin: 12/24/17 14:54 Dose: 500 mg Morphine Sulfate (Morphine) 4 mg IV Q4H PRN PRN Reason: Pain , Severe (7-10) Ondansetron HCl (Zofran) 4 mg IV Q6H PRN PRN Reason: Nausea And Vomiting Last Admin: 12/22/17 01:41 Dose: 4 mg Oxycodone/Acetaminophen (Percocet 5/325) 1 tab PO Q6H PRN PRN Reason: Pain, Moderate (4-6) Last Admin: 12/23/17 22:59 Dose: 1 tab Objective Vital Signs - 12hr 12/24/17 12/24/17 12/24/17 05:08 06:15 06:16 Temperature Pulse Rate 61 65 68 Respiratory Rate Blood Pressure 163/49 O2 Sat by Pulse 97 96 Oximetry 12/24/17 12/24/17 12/24/17 06:18 09:06 10:57 Temperature 98.1 F Pulse Rate 74 62 72 Respiratory 18 Rate Blood Pressure 163/49 161/49 150/45 O2 Sat by Pulse 97 Oximetry 12/24/17 12/24/17 12:17 14:56 Temperature 97.9 F Pulse Rate 70 79 Respiratory 18 Rate Blood Pressure 156/50 150/41 O2 Sat by Pulse 97 Oximetry Constitutional: no acute distress, alert Eyes: non-icteric ENT: oropharynx moist Neck: supple Effort: normal Ascultation: Bilateral: rales, rhonchi Tactile fremitus: Bilateral: normal Cardiovascular: regular rate and rhythm Gastrointestinal: normoactive bowel sounds, soft, non-tender Integumentary: normal Extremities: no cyanosis, no edema, pink and warm Neurologic: normal mental status, non-focal exam Psychiatric: mood appropriate, affect normal CBC and BMP: 12/24/17 06:05 12/24/17 06:05 ABG, PT/INR, D-dimer: ABG POC ABG pH 7.487 (7.35-7.45) H 12/18/17 14:30 POC ABG pCO2 32.6 (35-45) L 12/18/17 14:30 POC ABG pO2 65 (80-105) L 12/18/17 14:30 POC ABG HCO3 24.7 12/18/17 14:30 POC ABG Total CO2 26 12/18/17 14:30 POC ABG O2 Sat 94 12/18/17 14:30 PT/INR, D-dimer PT 16.5 Sec. (12.2-14.9) H 12/18/17 12:10 INR 1.26 (0.87-1.13) H 12/18/17 12:10 Abnormal lab findings: Abnormal Labs 12/18/17 12/18/17 12/18/17 12:10 12:10 12:10 WBC 24.0 H RBC RDW 13.0 L Plt Count 460 H [place] % (Auto) [place] # Seg Neutrophils % Seg Neuts % (Manual) 84.0 H Lymphocytes % (Manual) 2.0 L Monocytes % (Manual) Seg Neutrophils # Seg Neutrophils # Man 20.2 H Lymphocytes # (Manual) 0.5 L Monocytes # (Manual) 1.4 H PT INR POC ABG pH POC ABG pCO2 POC ABG pO2 VBG pH Sodium Carbon Dioxide BUN 23 H Creatinine 0.6 L Glucose 140 H Lactic Acid 2.20 H* Calcium 8.0 L Magnesium Total Creatine Kinase CK-MB (CK-2) Rel Index NT-Pro-B Natriuret Pep Total Protein 5.8 L Albumin 3.0 L Free T4 12/18/17 12/18/17 12/18/17 12:10 12:10 12:10 WBC RBC RDW Plt Count [place] % (Auto) [place] # Seg Neutrophils % Seg Neuts % (Manual) Lymphocytes % (Manual) Monocytes % (Manual) Seg Neutrophils # Seg Neutrophils # Man Lymphocytes # (Manual) Monocytes # (Manual) PT 16.5 H INR 1.26 H POC ABG pH POC ABG pCO2 POC ABG pO2 VBG pH Sodium Carbon Dioxide BUN Creatinine Glucose Lactic Acid Calcium Magnesium 1.60 L Total Creatine Kinase 21 L CK-MB (CK-2) Rel Index 9.5 H NT-Pro-B Natriuret Pep 1948 H Total Protein Albumin Free T4 12/18/17 12/18/17 12/19/17 12:10 14:30 04:36 WBC 20.3 H RBC RDW Plt Count [place] % (Auto) [place] # Seg Neutrophils % Seg Neuts % (Manual) 90.0 H Lymphocytes % (Manual) 5.0 L Monocytes % (Manual) Seg Neutrophils # Seg Neutrophils # Man 18.3 H Lymphocytes # (Manual) 1.0 L Monocytes # (Manual) PT INR POC ABG pH 7.487 H POC ABG pCO2 32.6 L POC ABG pO2 65 L VBG pH 7.534 H Sodium Carbon Dioxide BUN Creatinine Glucose Lactic Acid Calcium Magnesium Total Creatine Kinase CK-MB (CK-2) Rel Index NT-Pro-B Natriuret Pep Total Protein Albumin Free T4 12/19/17 12/20/17 12/20/17 04:36 06:23 06:23 WBC 19.3 H RBC RDW 13.1 L Plt Count [place] % (Auto) [place] # Seg Neutrophils % Seg Neuts % (Manual) 96.0 H Lymphocytes % (Manual) 2.0 L Monocytes % (Manual) Seg Neutrophils # Seg Neutrophils # Man 18.5 H Lymphocytes # (Manual) 0.4 L Monocytes # (Manual) PT INR POC ABG pH POC ABG pCO2 POC ABG pO2 VBG pH Sodium Carbon Dioxide BUN 24 H Creatinine Glucose 146 H Lactic Acid Calcium 7.8 L 7.9 L Magnesium Total Creatine Kinase CK-MB (CK-2) Rel Index NT-Pro-B Natriuret Pep Total Protein 6.2 L Albumin 2.4 L Free T4 12/20/17 12/21/17 12/24/17 06:23 05:04 06:05 WBC 20.5 H 14.5 H RBC 3.57 L RDW 12.8 L 12.9 L Plt Count [place] % (Auto) 7.8 H [place] # 1.1 H Seg Neutrophils % 75.4 H Seg Neuts % (Manual) Lymphocytes % (Manual) 12.0 L Monocytes % (Manual) 15.0 H Seg Neutrophils # 11.0 H Seg Neutrophils # Man 13.5 H Lymphocytes # (Manual) Monocytes # (Manual) 3.1 H PT INR POC ABG pH POC ABG pCO2 POC ABG pO2 VBG pH Sodium Carbon Dioxide BUN Creatinine Glucose Lactic Acid Calcium Magnesium Total Creatine Kinase CK-MB (CK-2) Rel Index NT-Pro-B Natriuret Pep Total Protein Albumin Free T4 1.66 H 12/24/17 06:05 WBC RBC RDW Plt Count [place] % (Auto) [place] # Seg Neutrophils % Seg Neuts % (Manual) Lymphocytes % (Manual) Monocytes % (Manual) Seg Neutrophils # Seg Neutrophils # Man Lymphocytes # (Manual) Monocytes # (Manual) PT INR POC ABG pH POC ABG pCO2 POC ABG pO2 VBG pH Sodium 146 H Carbon Dioxide 32 H D BUN Creatinine 0.6 L Glucose Lactic Acid Calcium 7.6 L Magnesium Total Creatine Kinase CK-MB (CK-2) Rel Index NT-Pro-B Natriuret Pep Total Protein Albumin Free T4 Chest x-ray: report reviewed, image reviewed (no significant change except probable small L effusion)
[2017-12-24] MEDS: LACTINEX PO SCH ×2 (16:51→21:45)
--- NOTE | 2017-12-24 19:47 | Progress Note ---
Assessment and Plan Assessment and plan: --Intractable diarrhea; slightly improved, C. difficile test is negative, Contact isolation, oral Flagyl, stool evaluation, IV fluids, Lomotil as needed Consider ID evaluation if no improvement --A. fib with rapid ventricular rate; pleasant on admission Now rate controlled , continue Cardizem, beta blockers, Eliquis, Cardiology Following --Right lower lobe pneumonia; continue current antibiotics, follow cultures Pulmonary following, probably residual pneumonia from recent illness --Follow speech therapy evaluation and recommendations --Hypertension; moderate control, continue current antihypertensives and when necessary medications --Dyslipidemia; stable on lipid-lowering medications --History of hypothyroidism; continue Synthroid, --DVT prophylaxis with Lovenox and SCD --Full code DC planning. Case management Possible discharge home tomorrow with home health and home oxygen is already setup Plan of care is reviewed with the patient and her daughter at the bedside Answered all their questions History Interval history: Diarrhea slightly better C. difficile antigen negative Complaints of generalized weakness and mild shortness of breath Speech therapist evaluating the patient Vital signs reviewed stable Hospitalist Physical - Constitutional Vitals: Temp Pulse Resp BP Pulse Ox 97.5 F L 72 18 142/39 95 12/24/17 16:33 12/24/17 16:33 12/24/17 16:33 12/24/17 16:33 12/24/17 16:33 General appearance: Present: mild distress, well-nourished, cachectic - EENT Eyes: Present: PERRL, EOM intact - Neck Neck: Present: supple, normal ROM - Respiratory Respiratory effort: normal Respiratory: bilateral: diminished, rhonchi, negative: rales, wheezing - Cardiovascular Rhythm: regular Heart Sounds: Present: S1 & S2 - Extremities Extremities: no ischemia, No edema - Abdominal General gastrointestinal: soft, non-tender, non-distended, normal bowel sounds - Integumentary Integumentary: Present: clear, warm - Psychiatric Psychiatric: appropriate mood/affect, cooperative - Neurologic Neurologic: CNII-XII intact, moves all extremities Results - Labs CBC & Chem 7: 12/24/17 06:05 12/24/17 06:05 Labs: Laboratory Last Values WBC 14.5 K/mm3 (4.5-11.0) H 12/24/17 06:05 RBC 3.67 M/mm3 (3.65-5.03) 12/24/17 06:05 Hgb 10.7 gm/dl (10.1-14.3) 12/24/17 06:05 Hct 33.4 % (30.3-42.9) 12/24/17 06:05 MCV 91 fl (79-97) 12/24/17 06:05 MCH 29 pg (28-32) 12/24/17 06:05 MCHC 32 % (30-34) 12/24/17 06:05 RDW 12.9 % (13.2-15.2) L 12/24/17 06:05 Plt Count 371 K/mm3 (140-440) 12/24/17 06:05 Lymph % (Auto) 15.6 % (13.4-35.0) 12/24/17 06:05 [place] % (Auto) 7.8 % (0.0-7.3) H 12/24/17 06:05 Eos % (Auto) 1.1 % (0.0-4.3) 12/24/17 06:05 Baso % (Auto) 0.1 % (0.0-1.8) 12/24/17 06:05 Lymph # 2.3 K/mm3 (1.2-5.4) 12/24/17 06:05 [place] # 1.1 K/mm3 (0.0-0.8) H 12/24/17 06:05 Eos # 0.2 K/mm3 (0.0-0.4) 12/24/17 06:05 Baso # 0.0 K/mm3 (0.0-0.1) 12/24/17 06:05 Add Manual Diff Complete 12/21/17 05:04 Total Counted 100 12/21/17 05:04 Seg Neutrophils % 75.4 % (40.0-70.0) H 12/24/17 06:05 Seg Neuts % (Manual) 66.0 % (40.0-70.0) 12/21/17 05:04 Band Neutrophils % 6.0 % 12/21/17 05:04 Lymphocytes % (Manual) 12.0 % (13.4-35.0) L 12/21/17 05:04 Reactive Lymphs % (Man) 0 % 12/21/17 05:04 Monocytes % (Manual) 15.0 % (0.0-7.3) H 12/21/17 05:04 Eosinophils % (Manual) 0 % (0.0-4.3) 12/21/17 05:04 Basophils % (Manual) 0 % (0.0-1.8) 12/20/17 06:23 Metamyelocytes % 1.0 % 12/21/17 05:04 Myelocytes % 0 % 12/21/17 05:04 Promyelocytes % 0 % 12/21/17 05:04 Blast Cells % 0 % 12/21/17 05:04 Nucleated RBC % Not Reportable 12/21/17 05:04 Seg Neutrophils # 11.0 K/mm3 (1.8-7.7) H 12/24/17 06:05 Seg Neutrophils # Man 13.5 K/mm3 (1.8-7.7) H 12/21/17 05:04 Band Neutrophils # 1.2 K/mm3 12/21/17 05:04 Lymphocytes # (Manual) 2.5 K/mm3 (1.2-5.4) 12/21/17 05:04 Abs React Lymphs (Man) 0.0 K/mm3 12/21/17 05:04 Monocytes # (Manual) 3.1 K/mm3 (0.0-0.8) H 12/21/17 05:04 Eosinophils # (Manual) 0.0 K/mm3 (0.0-0.4) 12/21/17 05:04 Basophils # (Manual) 0.0 K/mm3 (0.0-0.1) 12/21/17 05:04 Metamyelocytes # 0.2 K/mm3 12/21/17 05:04 Myelocytes # 0.0 K/mm3 12/21/17 05:04 Promyelocytes # 0.0 K/mm3 12/21/17 05:04 Blast Cells # 0.0 K/mm3 12/21/17 05:04 WBC Morphology Not Reportable 12/21/17 05:04 Hypersegmented Neuts Not Reportable 12/21/17 05:04 Hyposegmented Neuts Not Reportable 12/21/17 05:04 Hypogranular Neuts Not Reportable 12/21/17 05:04 Smudge Cells Not Reportable 12/21/17 05:04 Toxic Granulation Not Reportable 12/21/17 05:04 Toxic Vacuolation Not Reportable 12/21/17 05:04 Dohle Bodies Not Reportable 12/21/17 05:04 Pelger-Huet Anomaly Not Reportable 12/21/17 05:04 Andrei Rods Not Reportable 12/21/17 05:04 Platelet Estimate Appears normal 12/21/17 05:04 Clumped Platelets Not Reportable 12/21/17 05:04 Plt Clumps, EDTA Not Reportable 12/21/17 05:04 Large Platelets Not Reportable 12/21/17 05:04 Giant Platelets Not Reportable 12/21/17 05:04 Platelet Satelliting Not Reportable 12/21/17 05:04 Plt Morphology Comment Not Reportable 12/21/17 05:04 RBC Morphology Not Reportable 12/21/17 05:04 Dimorphic RBCs Not Reportable 12/21/17 05:04 Polychromasia Not Reportable 12/21/17 05:04 Hypochromasia Not Reportable 12/21/17 05:04 Poikilocytosis Not Reportable 12/21/17 05:04 Anisocytosis Not Reportable 12/21/17 05:04 Microcytosis Not Reportable 12/21/17 05:04 Macrocytosis Not Reportable 12/21/17 05:04 Spherocytes Not Reportable 12/21/17 05:04 Pappenheimer Bodies Not Reportable 12/21/17 05:04 Sickle Cells Not Reportable 12/21/17 05:04 Target Cells Not Reportable 12/21/17 05:04 Tear Drop Cells Not Reportable 12/21/17 05:04 Ovalocytes Not Reportable 12/21/17 05:04 Helmet Cells Not Reportable 12/21/17 05:04 [place] Bodies Not Reportable 12/21/17 05:04 [place] Rings Not Reportable 12/21/17 05:04 [place] Cells Not Reportable 12/21/17 05:04 Bite Cells Not Reportable 12/21/17 05:04 Crenated Cell Not Reportable 12/21/17 05:04 Elliptocytes Not Reportable 12/21/17 05:04 Acanthocytes (Spur) Not Reportable 12/21/17 05:04 Rouleaux Not Reportable 12/21/17 05:04 Hemoglobin C Crystals Not Reportable 12/21/17 05:04 Schistocytes Not Reportable 12/21/17 05:04 Malaria parasites Not Reportable 12/21/17 05:04 Chriss Bodies Not Reportable 12/21/17 05:04 Hem Pathologist Commnt No 12/21/17 05:04 PT 16.5 Sec. (12.2-14.9) H 12/18/17 12:10 INR 1.26 (0.87-1.13) H 12/18/17 12:10 POC ABG pH 7.487 (7.35-7.45) H 12/18/17 14:30 POC ABG pCO2 32.6 (35-45) L 12/18/17 14:30 POC ABG pO2 65 (80-105) L 12/18/17 14:30 POC ABG HCO3 24.7 12/18/17 14:30 POC ABG Total CO2 26 12/18/17 14:30 POC ABG O2 Sat 94 12/18/17 14:30 POC ABG Base Excess 1 12/18/17 14:30 VBG pH 7.534 (7.320-7.420) H 12/18/17 12:10 FiO2 28 % 12/18/17 14:30 Sodium 146 mmol/L (137-145) H 12/24/17 06:05 Potassium 3.7 mmol/L (3.6-5.0) 12/24/17 06:05 Chloride 104.9 mmol/L (98-107) 12/24/17 06:05 Carbon Dioxide 32 mmol/L (22-30) H D 12/24/17 06:05 Anion Gap 13 mmol/L 12/24/17 06:05 BUN 17 mg/dL (7-17) 12/24/17 06:05 Creatinine 0.6 mg/dL (0.7-1.2) L 12/24/17 06:05 Estimated GFR > 60 ml/min 12/24/17 06:05 BUN/Creatinine Ratio 28 % 12/24/17 06:05 Glucose 90 mg/dL (65-100) 12/24/17 06:05 Lactic Acid 1.00 mmol/L (0.7-2.0) 12/19/17 04:36 Calcium 7.6 mg/dL (8.4-10.2) L 12/24/17 06:05 Magnesium 1.60 mg/dL (1.7-2.3) L 12/18/17 12:10 Total Bilirubin 0.50 mg/dL (0.1-1.2) 12/19/17 04:36 Direct Bilirubin 0.2 mg/dL (0-0.2) 12/18/17 12:10 Indirect Bilirubin 0.3 mg/dL 12/18/17 12:10 AST 18 units/L (5-40) 12/19/17 04:36 ALT 18 units/L (7-56) 12/19/17 04:36 Alkaline Phosphatase 72 units/L (35-129) 12/19/17 04:36 Total Creatine Kinase 21 units/L (30-135) L 12/18/17 12:10 CK-MB (CK-2) 2.0 ng/mL (0.0-4.0) 12/18/17 12:10 CK-MB (CK-2) Rel Index 9.5 (0-4) H 12/18/17 12:10 Troponin T < 0.010 ng/mL (0.00-0.029) 12/18/17 12:10 NT-Pro-B Natriuret Pep 1948 pg/mL (0-900) H 12/18/17 12:10 Total Protein 6.2 g/dL (6.3-8.2) L 12/19/17 04:36 Albumin 2.4 g/dL (3.9-5) L 12/19/17 04:36 Albumin/Globulin Ratio 0.6 % 12/19/17 04:36 TSH 0.311 mlU/mL (0.270-4.200) 12/20/17 06:23 Free T4 1.66 ng/dL (0.76-1.46) H 12/20/17 06:23 Urine Color Yellow (Yellow) 12/18/17 18:35 Urine Turbidity Clear (Clear) 12/18/17 18:35 Urine pH 5.0 (5.0-7.0) 12/18/17 18:35 Ur Specific [place] 1.021 (1.003-1.030) 12/18/17 18:35 Urine Protein 30 mg/dl mg/dL (Negative) 12/18/17 18:35 Urine Glucose (UA) Neg mg/dL (Negative) 12/18/17 18:35 Urine Ketones Tr mg/dL (Negative) 12/18/17 18:35 Urine Blood Neg (Negative) 12/18/17 18:35 Urine Nitrite Neg (Negative) 12/18/17 18:35 Urine Bilirubin Neg (Negative) 12/18/17 18:35 Urine Urobilinogen < 2.0 mg/dL (<2.0) 12/18/17 18:35 Ur Leukocyte Esterase Neg (Negative) 12/18/17 18:35 Urine WBC (Auto) 2.0 /HPF (0.0-6.0) 12/18/17 18:35 Urine RBC (Auto) 5.0 /HPF (0.0-6.0) 12/18/17 18:35 U Epithel Cells (Auto) < 1.0 /HPF (0-13.0) 12/18/17 18:35 Urine Mucus Few /HPF 12/18/17 18:35 C. difficile Toxin A&B Negative (Negative) 12/23/17 11:40 Blood Type O POSITIVE 12/18/17 12:10 Antibody Screen Negative 12/18/17 12:10
[2017-12-25] MEDS: ZOFRAN IV PRN (00:13)
[2017-12-25] MEDS: FLAGYL PO SCH ×3 (06:29→23:00)
[2017-12-25] MEDS: CARDIZEM PO SCH ×3 (06:29→23:01)
[2017-12-25] MEDS: SYNTHROID PO SCH (06:29)
[2017-12-25] MEDS: ZOSYN/NS 4.5GM/100ML 4.5 GM/100 ML VIAL IV SCH ×3 (06:29→23:16)
[2017-12-25] MEDS: MUCOMYST INHALATION INHALATION SCH ×2 (09:58→22:01)
--- NOTE | 2017-12-25 10:43 | Fluoroscopy Report ---
MODIFIED BARIUM SWALLOW INDICATION: Aspiration. COMPARISON: None similar. FINDINGS: Fluoroscopy with video provided by radiologist for speech therapist to assess the swallowing mechanism. Food items of various consistencies given. One image recorded. Edentulous jaw. IMPRESSION: Successful modified barium swallow. Please refer to detailed report from speech pathologist. Thank you for the opportunity to participate in this patient's care.
--- NOTE | 2017-12-25 11:09 | Progress Note ---
Assessment and Plan Pneumonia History of multiple admissions for pneumonia recently Biapical scarring and pleural thickening on CXR suggesting underlying pulmonary fibrosis Paroxysmal atrial fibrillation currently in sinus rhythm on low dose diltiazem Anticoagulated with eliquis as outpatient Normal LVEF by echo with mild to moderate mitral stenosis. Thyroid disorder Systemic Hypertension Hyperlipidemia Recommend: Continue low dose diltiazem and oral anticoagulation for paroxysmal atrial fibrillation. Subjective Date of service: 12/25/17 Principal diagnosis: Pneumonia Interval history: Patient with continued loose stools. No cardiac complaints. Family members at bedside. Objective Vital Signs Temp Pulse Pulse Resp BP BP Pulse Ox 12/25/17 09:19 98.5 F 78 16 132/40 95 12/25/17 06:45 74 12/25/17 03:19 97.6 F 75 18 137/53 12/24/17 22:00 74 18 12/24/17 20:08 98.6 F 12/24/17 19:37 69 155/42 96 12/24/17 16:33 97.5 F L 72 18 142/39 95 12/24/17 14:56 79 150/41 12/24/17 12:17 97.9 F 70 18 156/50 97 - Physical Examination General: No Apparent Distress HEENT: Positive: Pallor Cardiac: Positive: Reg Rate and Rhythm Lungs: Positive: Decreased Breath Sounds Neuro: Positive: Weakness
[2017-12-25] MEDS: LASIX PO SCH (11:27)
[2017-12-25] MEDS: ELIQUIS PO SCH ×2 (11:27→23:00)
[2017-12-25] MEDS: ZESTRIL PO SCH (11:28)
[2017-12-25] MEDS: LACTINEX PO SCH ×2 (11:29→23:00)
[2017-12-25] MEDS: MUCINEX ER PO SCH ×2 (11:29→23:00)
--- NOTE | 2017-12-25 14:48 | Progress Note ---
Assessment and Plan Assessment and plan: --Intractable diarrhea; slightly improved, C. difficile test is negative, oral Flagyl, stool evaluation, IV fluids, Lomotil as needed Consider ID evaluation if no improvement --A. fib with rapid ventricular rate; present on admission Now rate controlled , continue Cardizem, beta blockers, Eliquis, Cardiology Following --Right lower lobe pneumonia; continue current antibiotics, follow cultures Pulmonary following, probably residual pneumonia from recent illness --Follow speech therapy evaluated, modified barium swallow no evidence of aspiration risk --Hypertension; moderate control, continue current antihypertensives and when necessary medications --Dyslipidemia; stable on lipid-lowering medications --History of hypothyroidism; continue Synthroid, --DVT prophylaxis with Lovenox and SCD --Full code status DC planning. Case management Possible discharge home tomorrow with home health and home oxygen is already setup Plan of care is reviewed with the patient and her daughter at the bedside Answered all their questions History Interval history: Patient seen and evaluated medical records reviewed Feels very weak and tired, diarrhea slightly improved Family members at the bedside no new events reported by the nursing staff Vital signs reviewed Hospitalist Physical - Constitutional Vitals: Temp Pulse Resp BP Pulse Ox 98.5 F 78 16 132/40 95 12/25/17 09:19 12/25/17 11:28 12/25/17 09:19 12/25/17 11:28 12/25/17 09:19 General appearance: Present: no acute distress, cachectic, other (looks tired) - EENT Eyes: Present: PERRL - Neck Neck: Present: supple, normal ROM - Respiratory Respiratory effort: normal Respiratory: bilateral: diminished, rhonchi, negative: rales, wheezing - Cardiovascular Rhythm: regular Heart Sounds: Present: S1 & S2 - Extremities Extremities: no ischemia, No edema - Abdominal General gastrointestinal: soft, non-tender, non-distended, normal bowel sounds - Integumentary Integumentary: Present: clear, warm - Psychiatric Psychiatric: appropriate mood/affect, cooperative - Neurologic Neurologic: moves all extremities Results - Labs CBC & Chem 7: 12/24/17 06:05 12/24/17 06:05 Labs: Laboratory Last Values WBC 14.5 K/mm3 (4.5-11.0) H 12/24/17 06:05 RBC 3.67 M/mm3 (3.65-5.03) 12/24/17 06:05 Hgb 10.7 gm/dl (10.1-14.3) 12/24/17 06:05 Hct 33.4 % (30.3-42.9) 12/24/17 06:05 MCV 91 fl (79-97) 12/24/17 06:05 MCH 29 pg (28-32) 12/24/17 06:05 MCHC 32 % (30-34) 12/24/17 06:05 RDW 12.9 % (13.2-15.2) L 12/24/17 06:05 Plt Count 371 K/mm3 (140-440) 12/24/17 06:05 Lymph % (Auto) 15.6 % (13.4-35.0) 12/24/17 06:05 [place] % (Auto) 7.8 % (0.0-7.3) H 12/24/17 06:05 Eos % (Auto) 1.1 % (0.0-4.3) 12/24/17 06:05 Baso % (Auto) 0.1 % (0.0-1.8) 12/24/17 06:05 Lymph # 2.3 K/mm3 (1.2-5.4) 12/24/17 06:05 [place] # 1.1 K/mm3 (0.0-0.8) H 12/24/17 06:05 Eos # 0.2 K/mm3 (0.0-0.4) 12/24/17 06:05 Baso # 0.0 K/mm3 (0.0-0.1) 12/24/17 06:05 Add Manual Diff Complete 12/21/17 05:04 Total Counted 100 12/21/17 05:04 Seg Neutrophils % 75.4 % (40.0-70.0) H 12/24/17 06:05 Seg Neuts % (Manual) 66.0 % (40.0-70.0) 12/21/17 05:04 Band Neutrophils % 6.0 % 12/21/17 05:04 Lymphocytes % (Manual) 12.0 % (13.4-35.0) L 12/21/17 05:04 Reactive Lymphs % (Man) 0 % 12/21/17 05:04 Monocytes % (Manual) 15.0 % (0.0-7.3) H 12/21/17 05:04 Eosinophils % (Manual) 0 % (0.0-4.3) 12/21/17 05:04 Basophils % (Manual) 0 % (0.0-1.8) 12/20/17 06:23 Metamyelocytes % 1.0 % 12/21/17 05:04 Myelocytes % 0 % 12/21/17 05:04 Promyelocytes % 0 % 12/21/17 05:04 Blast Cells % 0 % 12/21/17 05:04 Nucleated RBC % Not Reportable 12/21/17 05:04 Seg Neutrophils # 11.0 K/mm3 (1.8-7.7) H 12/24/17 06:05 Seg Neutrophils # Man 13.5 K/mm3 (1.8-7.7) H 12/21/17 05:04 Band Neutrophils # 1.2 K/mm3 12/21/17 05:04 Lymphocytes # (Manual) 2.5 K/mm3 (1.2-5.4) 12/21/17 05:04 Abs React Lymphs (Man) 0.0 K/mm3 12/21/17 05:04 Monocytes # (Manual) 3.1 K/mm3 (0.0-0.8) H 12/21/17 05:04 Eosinophils # (Manual) 0.0 K/mm3 (0.0-0.4) 12/21/17 05:04 Basophils # (Manual) 0.0 K/mm3 (0.0-0.1) 12/21/17 05:04 Metamyelocytes # 0.2 K/mm3 12/21/17 05:04 Myelocytes # 0.0 K/mm3 12/21/17 05:04 Promyelocytes # 0.0 K/mm3 12/21/17 05:04 Blast Cells # 0.0 K/mm3 12/21/17 05:04 WBC Morphology Not Reportable 12/21/17 05:04 Hypersegmented Neuts Not Reportable 12/21/17 05:04 Hyposegmented Neuts Not Reportable 12/21/17 05:04 Hypogranular Neuts Not Reportable 12/21/17 05:04 Smudge Cells Not Reportable 12/21/17 05:04 Toxic Granulation Not Reportable 12/21/17 05:04 Toxic Vacuolation Not Reportable 12/21/17 05:04 Dohle Bodies Not Reportable 12/21/17 05:04 Pelger-Huet Anomaly Not Reportable 12/21/17 05:04 Andrei Rods Not Reportable 12/21/17 05:04 Platelet Estimate Appears normal 12/21/17 05:04 Clumped Platelets Not Reportable 12/21/17 05:04 Plt Clumps, EDTA Not Reportable 12/21/17 05:04 Large Platelets Not Reportable 12/21/17 05:04 Giant Platelets Not Reportable 12/21/17 05:04 Platelet Satelliting Not Reportable 12/21/17 05:04 Plt Morphology Comment Not Reportable 12/21/17 05:04 RBC Morphology Not Reportable 12/21/17 05:04 Dimorphic RBCs Not Reportable 12/21/17 05:04 Polychromasia Not Reportable 12/21/17 05:04 Hypochromasia Not Reportable 12/21/17 05:04 Poikilocytosis Not Reportable 12/21/17 05:04 Anisocytosis Not Reportable 12/21/17 05:04 Microcytosis Not Reportable 12/21/17 05:04 Macrocytosis Not Reportable 12/21/17 05:04 Spherocytes Not Reportable 12/21/17 05:04 Pappenheimer Bodies Not Reportable 12/21/17 05:04 Sickle Cells Not Reportable 12/21/17 05:04 Target Cells Not Reportable 12/21/17 05:04 Tear Drop Cells Not Reportable 12/21/17 05:04 Ovalocytes Not Reportable 12/21/17 05:04 Helmet Cells Not Reportable 12/21/17 05:04 [place] Bodies Not Reportable 12/21/17 05:04 [place] Rings Not Reportable 12/21/17 05:04 Rigo Cells Not Reportable 12/21/17 05:04 Bite Cells Not Reportable 12/21/17 05:04 Crenated Cell Not Reportable 12/21/17 05:04 Elliptocytes Not Reportable 12/21/17 05:04 Acanthocytes (Spur) Not Reportable 12/21/17 05:04 Rouleaux Not Reportable 12/21/17 05:04 Hemoglobin C Crystals Not Reportable 12/21/17 05:04 Schistocytes Not Reportable 12/21/17 05:04 Malaria parasites Not Reportable 12/21/17 05:04 Chriss Bodies Not Reportable 12/21/17 05:04 Hem Pathologist Commnt No 12/21/17 05:04 PT 16.5 Sec. (12.2-14.9) H 12/18/17 12:10 INR 1.26 (0.87-1.13) H 12/18/17 12:10 POC ABG pH 7.487 (7.35-7.45) H 12/18/17 14:30 POC ABG pCO2 32.6 (35-45) L 12/18/17 14:30 POC ABG pO2 65 (80-105) L 12/18/17 14:30 POC ABG HCO3 24.7 12/18/17 14:30 POC ABG Total CO2 26 12/18/17 14:30 POC ABG O2 Sat 94 12/18/17 14:30 POC ABG Base Excess 1 12/18/17 14:30 VBG pH 7.534 (7.320-7.420) H 12/18/17 12:10 FiO2 28 % 12/18/17 14:30 Sodium 146 mmol/L (137-145) H 12/24/17 06:05 Potassium 3.7 mmol/L (3.6-5.0) 12/24/17 06:05 Chloride 104.9 mmol/L (98-107) 12/24/17 06:05 Carbon Dioxide 32 mmol/L (22-30) H D 12/24/17 06:05 Anion Gap 13 mmol/L 12/24/17 06:05 BUN 17 mg/dL (7-17) 12/24/17 06:05 Creatinine 0.6 mg/dL (0.7-1.2) L 12/24/17 06:05 Estimated GFR > 60 ml/min 12/24/17 06:05 BUN/Creatinine Ratio 28 % 12/24/17 06:05 Glucose 90 mg/dL (65-100) 12/24/17 06:05 Lactic Acid 1.00 mmol/L (0.7-2.0) 12/19/17 04:36 Calcium 7.6 mg/dL (8.4-10.2) L 12/24/17 06:05 Magnesium 1.60 mg/dL (1.7-2.3) L 12/18/17 12:10 Total Bilirubin 0.50 mg/dL (0.1-1.2) 12/19/17 04:36 Direct Bilirubin 0.2 mg/dL (0-0.2) 12/18/17 12:10 Indirect Bilirubin 0.3 mg/dL 12/18/17 12:10 AST 18 units/L (5-40) 12/19/17 04:36 ALT 18 units/L (7-56) 12/19/17 04:36 Alkaline Phosphatase 72 units/L (35-129) 12/19/17 04:36 Total Creatine Kinase 21 units/L (30-135) L 12/18/17 12:10 CK-MB (CK-2) 2.0 ng/mL (0.0-4.0) 12/18/17 12:10 CK-MB (CK-2) Rel Index 9.5 (0-4) H 12/18/17 12:10 Troponin T < 0.010 ng/mL (0.00-0.029) 12/18/17 12:10 NT-Pro-B Natriuret Pep 1948 pg/mL (0-900) H 12/18/17 12:10 Total Protein 6.2 g/dL (6.3-8.2) L 12/19/17 04:36 Albumin 2.4 g/dL (3.9-5) L 12/19/17 04:36 Albumin/Globulin Ratio 0.6 % 12/19/17 04:36 TSH 0.311 mlU/mL (0.270-4.200) 12/20/17 06:23 Free T4 1.66 ng/dL (0.76-1.46) H 12/20/17 06:23 Urine Color Yellow (Yellow) 12/18/17 18:35 Urine Turbidity Clear (Clear) 12/18/17 18:35 Urine pH 5.0 (5.0-7.0) 12/18/17 18:35 Ur Specific [place] 1.021 (1.003-1.030) 12/18/17 18:35 Urine Protein 30 mg/dl mg/dL (Negative) 12/18/17 18:35 Urine Glucose (UA) Neg mg/dL (Negative) 12/18/17 18:35 Urine Ketones Tr mg/dL (Negative) 12/18/17 18:35 Urine Blood Neg (Negative) 12/18/17 18:35 Urine Nitrite Neg (Negative) 12/18/17 18:35 Urine Bilirubin Neg (Negative) 12/18/17 18:35 Urine Urobilinogen < 2.0 mg/dL (<2.0) 12/18/17 18:35 Ur Leukocyte Esterase Neg (Negative) 12/18/17 18:35 Urine WBC (Auto) 2.0 /HPF (0.0-6.0) 12/18/17 18:35 Urine RBC (Auto) 5.0 /HPF (0.0-6.0) 12/18/17 18:35 U Epithel Cells (Auto) < 1.0 /HPF (0-13.0) 12/18/17 18:35 Urine Mucus Few /HPF 12/18/17 18:35 C. difficile Toxin A&B Negative (Negative) 12/23/17 11:40 Blood Type O POSITIVE 12/18/17 12:10 Antibody Screen Negative 12/18/17 12:10
[2017-12-25] MEDS ORDERED: CARDIZEM IV STA (14:59)
[2017-12-25] MEDS ORDERED: LOPRESSOR IV SCH (15:00)
[2017-12-25] MEDS ORDERED: LOPRESSOR IV ONE (15:16)
--- NOTE | 2017-12-25 15:26 | Progress Note ---
Assessment and Plan Imp: 1. Bronchiectasis on 2011 CT chest (reviewed [facility] images), RML and lingula 2. Pneumonia in setting of #1, doubt aspiration 3. Mild oral dysphagia 4. Acute respiratory failure, hypoxia 5. Mitral stenosis 6. Mild pulm HTN 7. Afib w/ RVR Rec: 1. Cont. Zosyn; sputum culture negative 2. In light of #1 above, added flutter valve BID (d/w RT), Mucinex BID, and mucomyst nebs + Xopenex BID 3. ST evaluation reviewed and appreciated -> follow recs at home 4. PT/OOB/ambulate 5. Lactinex re: diarrhea 6. Patient in Afib w/ RVR per above; Diltiazem 10mg IV push pending per cardiology who is aware Plan of care reviewed with patient/family, they understand/agree Subjective Date of service: 12/25/17 Principal diagnosis: Pneumonia Interval history: No events. Still coughing up green/yellow sputum but better today. Still with SOB, and some wheezing. + Diarrhea still. When I saw her she was sitting up in chair having worked with PT, complaining of palpitations/heart racing and SOB. D /w Telemetry and she is in Afib w/ RVR 150's to 180's. Obtained vitals -> BP good, and O2 sat 93%. Paged cardiology who ordered Diltiazem 10mg IV push. Active Medications Acetylcysteine (Mucomyst Inhalation) 200 mg INHALATION Q12HRT [facility] Last Admin: 12/25/17 09:58 Dose: Not Given Al Hydrox/Mg Hydrox/Simethicone (Alum-Mag Hydrox-Simeth 200-821-52md/5ml) 30 ml PO Q4H PRN PRN Reason: Indigestion Alprazolam (Xanax) 0.25 mg PO Q8H PRN PRN Reason: Anxiety Apixaban (Eliquis) 2.5 mg PO BID [facility] PRN Reason: Protocol Last Admin: 12/25/17 11:27 Dose: 2.5 mg Atorvastatin Calcium (Lipitor) 20 mg PO [facility] Last Admin: 12/19/17 22:20 Dose: 20 mg Atorvastatin Calcium (Lipitor) 20 mg PO [facility] Bisacodyl (Dulcolax) 10 mg [place] QDAY PRN PRN Reason: constipation unrelieved by MOM Diltiazem HCl (Cardizem) 30 mg PO Q8HR [facility] Last Admin: 12/25/17 15:13 Dose: 30 mg Diphenoxylate HCl/Atropine (Lomotil) 1 tab PO Q6H PRN PRN Reason: Diarrhea Last Admin: 12/24/17 14:54 Dose: 1 tab Furosemide (Lasix) 20 mg PO QDAY [facility] Last Admin: 12/25/17 11:27 Dose: 20 mg Guaifenesin (Mucinex Er) 600 mg PO BID [facility] Last Admin: 12/25/17 11:29 Dose: 600 mg Hydromorphone HCl (Dilaudid) 0.5 mg IV Q3H PRN PRN Reason: Pain , Severe (7-10) Piperacillin Sod/Tazobactam Sod (Zosyn/Ns 4.5gm/100ml) 4.5 gm in 100 mls @ 200 mls/hr IV Q8HR [facility] PRN Reason: Protocol Last Admin: 12/25/17 06:29 Dose: 200 mls/hr Lactobacillus Acidophilus (Lactinex) 1 each PO BID [facility] Last Admin: 12/25/17 11:29 Dose: 1 each Levalbuterol HCl (Xopenex) 1.25 mg IH BID [facility] Levothyroxine Sodium (Synthroid) 50 mcg PO QDAY@0600 [facility] Last Admin: 12/25/17 06:29 Dose: 50 mcg Lisinopril (Zestril) 5 mg PO QDAY [facility] Last Admin: 12/25/17 11:28 Dose: 5 mg Magnesium Hydroxide (Milk Of Magnesia) 30 ml PO Q4H PRN PRN Reason: Constipation Metoprolol Tartrate (Lopressor) 2.5 mg IV Q4H [facility] Last Admin: 12/25/17 15:08 Dose: 2.5 mg Metronidazole (Flagyl) 500 mg PO Q8HR [facility] Last Admin: 12/25/17 15:14 Dose: 500 mg Morphine Sulfate (Morphine) 4 mg IV Q4H PRN PRN Reason: Pain , Severe (7-10) Ondansetron HCl (Zofran) 4 mg IV Q6H PRN PRN Reason: Nausea And Vomiting Last Admin: 12/25/17 00:13 Dose: 4 mg Oxycodone/Acetaminophen (Percocet 5/325) 1 tab PO Q6H PRN PRN Reason: Pain, Moderate (4-6) Last Admin: 12/23/17 22:59 Dose: 1 tab Objective Vital Signs - 12hr 12/25/17 12/25/17 12/25/17 06:45 09:19 11:28 Temperature 98.5 F Pulse Rate 74 78 78 Respiratory 16 Rate Blood Pressure 132/40 Blood Pressure 132/40 [Right] O2 Sat by Pulse 95 Oximetry 12/25/17 12/25/17 15:08 15:13 Temperature Pulse Rate Respiratory Rate Blood Pressure 132/85 132/85 Blood Pressure [Right] O2 Sat by Pulse Oximetry Constitutional: no acute distress, alert Eyes: non-icteric ENT: oropharynx moist Neck: supple Effort: normal Ascultation: Right: rales (better), rhonchi (better), Left: clear Percussion: Bilateral: not dull Tactile fremitus: Bilateral: normal Cardiovascular: irregular rhythm (tachy, no mrg) Gastrointestinal: normoactive bowel sounds, soft, non-tender Integumentary: normal Extremities: no cyanosis, no edema, pink and warm Neurologic: normal mental status, non-focal exam Psychiatric: mood appropriate, affect normal CBC and BMP: 12/24/17 06:05 12/24/17 06:05 ABG, PT/INR, D-dimer: ABG POC ABG pH 7.487 (7.35-7.45) H 12/18/17 14:30 POC ABG pCO2 32.6 (35-45) L 12/18/17 14:30 POC ABG pO2 65 (80-105) L 12/18/17 14:30 POC ABG HCO3 24.7 12/18/17 14:30 POC ABG Total CO2 26 12/18/17 14:30 POC ABG O2 Sat 94 12/18/17 14:30 PT/INR, D-dimer PT 16.5 Sec. (12.2-14.9) H 12/18/17 12:10 INR 1.26 (0.87-1.13) H 12/18/17 12:10 Abnormal lab findings: Abnormal Labs 12/18/17 12/18/17 12/18/17 12:10 12:10 12:10 WBC 24.0 H RBC RDW 13.0 L Plt Count 460 H [place] % (Auto) [place] # Seg Neutrophils % Seg Neuts % (Manual) 84.0 H Lymphocytes % (Manual) 2.0 L Monocytes % (Manual) Seg Neutrophils # Seg Neutrophils # Man 20.2 H Lymphocytes # (Manual) 0.5 L Monocytes # (Manual) 1.4 H PT INR POC ABG pH POC ABG pCO2 POC ABG pO2 VBG pH Sodium Carbon Dioxide BUN 23 H Creatinine 0.6 L Glucose 140 H Lactic Acid 2.20 H* Calcium 8.0 L Magnesium Total Creatine Kinase CK-MB (CK-2) Rel Index NT-Pro-B Natriuret Pep Total Protein 5.8 L Albumin 3.0 L Free T4 12/18/17 12/18/17 12/18/17 12:10 12:10 12:10 WBC RBC RDW Plt Count [place] % (Auto) [place] # Seg Neutrophils % Seg Neuts % (Manual) Lymphocytes % (Manual) Monocytes % (Manual) Seg Neutrophils # Seg Neutrophils # Man Lymphocytes # (Manual) Monocytes # (Manual) PT 16.5 H INR 1.26 H POC ABG pH POC ABG pCO2 POC ABG pO2 VBG pH Sodium Carbon Dioxide BUN Creatinine Glucose Lactic Acid Calcium Magnesium 1.60 L Total Creatine Kinase 21 L CK-MB (CK-2) Rel Index 9.5 H NT-Pro-B Natriuret Pep 1948 H Total Protein Albumin Free T4 12/18/17 12/18/17 12/19/17 12:10 14:30 04:36 WBC 20.3 H RBC RDW Plt Count [place] % (Auto) [place] # Seg Neutrophils % Seg Neuts % (Manual) 90.0 H Lymphocytes % (Manual) 5.0 L Monocytes % (Manual) Seg Neutrophils # Seg Neutrophils # Man 18.3 H Lymphocytes # (Manual) 1.0 L Monocytes # (Manual) PT INR POC ABG pH 7.487 H POC ABG pCO2 32.6 L POC ABG pO2 65 L VBG pH 7.534 H Sodium Carbon Dioxide BUN Creatinine Glucose Lactic Acid Calcium Magnesium Total Creatine Kinase CK-MB (CK-2) Rel Index NT-Pro-B Natriuret Pep Total Protein Albumin Free T4 12/19/17 12/20/17 12/20/17 04:36 06:23 06:23 WBC 19.3 H RBC RDW 13.1 L Plt Count [place] % (Auto) [place] # Seg Neutrophils % Seg Neuts % (Manual) 96.0 H Lymphocytes % (Manual) 2.0 L Monocytes % (Manual) Seg Neutrophils # Seg Neutrophils # Man 18.5 H Lymphocytes # (Manual) 0.4 L Monocytes # (Manual) PT INR POC ABG pH POC ABG pCO2 POC ABG pO2 VBG pH Sodium Carbon Dioxide BUN 24 H Creatinine Glucose 146 H Lactic Acid Calcium 7.8 L 7.9 L Magnesium Total Creatine Kinase CK-MB (CK-2) Rel Index NT-Pro-B Natriuret Pep Total Protein 6.2 L Albumin 2.4 L Free T4 12/20/17 12/21/17 12/24/17 06:23 05:04 06:05 WBC 20.5 H 14.5 H RBC 3.57 L RDW 12.8 L 12.9 L Plt Count [place] % (Auto) 7.8 H [place] # 1.1 H Seg Neutrophils % 75.4 H Seg Neuts % (Manual) Lymphocytes % (Manual) 12.0 L Monocytes % (Manual) 15.0 H Seg Neutrophils # 11.0 H Seg Neutrophils # Man 13.5 H Lymphocytes # (Manual) Monocytes # (Manual) 3.1 H PT INR POC ABG pH POC ABG pCO2 POC ABG pO2 VBG pH Sodium Carbon Dioxide BUN Creatinine Glucose Lactic Acid Calcium Magnesium Total Creatine Kinase CK-MB (CK-2) Rel Index NT-Pro-B Natriuret Pep Total Protein Albumin Free T4 1.66 H 12/24/17 06:05 WBC RBC RDW Plt Count [place] % (Auto) [place] # Seg Neutrophils % Seg Neuts % (Manual) Lymphocytes % (Manual) Monocytes % (Manual) Seg Neutrophils # Seg Neutrophils # Man Lymphocytes # (Manual) Monocytes # (Manual) PT INR POC ABG pH POC ABG pCO2 POC ABG pO2 VBG pH Sodium 146 H Carbon Dioxide 32 H D BUN Creatinine 0.6 L Glucose Lactic Acid Calcium 7.6 L Magnesium Total Creatine Kinase CK-MB (CK-2) Rel Index NT-Pro-B Natriuret Pep Total Protein Albumin Free T4 Chest x-ray: report reviewed, image reviewed
[2017-12-25] MEDS ORDERED: LOPRESSOR IV PRN (15:56)
[2017-12-25] MEDS ORDERED: CARDIZEM/D5W 100MG/100ML 100 MG/100 ML BAG IV SCH (17:00)
--- NOTE | 2017-12-25 18:01 | Event Note ---
Date: 12/25/17 Patient was noted to be in A. fib with rapid ventricular rate with heart rate ranging between 130s to 170s on the monitor Cardiology was contacted, advised Cardizem and IV metoprolol, with little improvement I called and discussed with the real estate transaction coordinator Dr. Dougherty, who advised low-dose Cardizem drip without titrating on on the telemetry floor If no improvement with the treatment,we may consider to transfer to ICU for close observation Patient's nurse and Charge nurse informed of the plan of treatment. I examined the patient, patient is comfortably sleeping, not in acute distress, easily awakens Vital signs reviewed, plan of care discussed with the family member at the bedside
[2017-12-25] MEDS: XOPENEX IH SCH (22:01)
[2017-12-26] MEDS: ZOSYN/NS 4.5GM/100ML 4.5 GM/100 ML VIAL IV SCH ×3 (02:28→17:17)
[2017-12-26] MEDS: CARDIZEM PO SCH ×4 (07:02→22:16)
[2017-12-26] MEDS: SYNTHROID PO SCH (07:02)
[2017-12-26] MEDS: FLAGYL PO SCH ×3 (07:02→22:16)
[2017-12-26 07:22] LABS: Hematocrit 33.4 % (30.3-42.9); Mean Corpuscular HGB Conc 33 % (30-34); Mean Corpuscular Hemoglobin 30 pg (28-32); Mean Corpuscular Volume 92 fl (79-97); Platelet Count 394 K/mm3 (140-440); Red Blood Count 3.63 M/mm3 (3.65-5.03); Red Cell Distribution Width 13.4 % (13.2-15.2)
[2017-12-26 07:26] LABS: Basophils # (Auto) 0.1 K/mm3 (0.0-0.1); Basophils % (Auto) 0.6 % (0.0-1.8); Eosinophils # (Auto) 0.2 K/mm3 (0.0-0.4); Eosinophils % (Auto) 1.2 % (0.0-4.3); Lymphocytes # (Auto) 1.9 K/mm3 (1.2-5.4); Lymphocytes % (Auto) 14.7 % (13.4-35.0); Monocytes % (Auto) 7.8 % (0.0-7.3)
[2017-12-26 07:50] LABS: BUN/Creatinine Ratio 15; Blood Urea Nitrogen 12 mg/dL (7-17); Calcium 7.8 mg/dL (8.4-10.2); Hemolysis Index 45
[2017-12-26] MEDS: MUCOMYST INHALATION INHALATION SCH ×2 (09:58→21:13)
[2017-12-26] MEDS: XOPENEX IH SCH ×2 (09:58→21:13)
--- NOTE | 2017-12-26 10:39 | Progress Note ---
Assessment and Plan Pneumonia History of multiple admissions for pneumonia recently Biapical scarring and pleural thickening on CXR suggesting underlying pulmonary fibrosis Paroxysmal atrial fibrillation currently in sinus rhythm on diltiazem Anticoagulated with eliquis as outpatient Normal LVEF by echo with mild to moderate mitral stenosis. Thyroid disorder Systemic Hypertension Hyperlipidemia Continue diltiazem and oral anticoagulation for paroxysmal atrial fibrillation. Subjective Date of service: 12/26/17 Principal diagnosis: Pneumonia Interval history: Stable sinus rhythm on telemetry. Short burst on NSVT on telemetry overnight. Objective Vital Signs Temp Pulse Pulse Resp Resp BP BP 12/26/17 10:12 87 18 12/26/17 10:04 73 18 12/26/17 09:59 97.5 F L 62 18 121/41 12/26/17 09:55 80 18 12/26/17 07:02 85 117/78 12/26/17 05:16 97.6 F 79 18 125/49 12/26/17 00:12 97.7 F 69 20 112/46 12/25/17 23:01 73 108/45 12/25/17 22:20 71 20 12/25/17 22:10 12/25/17 22:08 67 20 12/25/17 20:16 98.6 F 59 L 18 108/45 12/25/17 15:38 106/58 12/25/17 15:13 132/85 12/25/17 15:08 132/85 12/25/17 11:28 78 132/40 Pulse Ox 12/26/17 10:12 12/26/17 10:04 95 12/26/17 09:59 12/26/17 09:55 96 12/26/17 07:02 12/26/17 05:16 97 12/26/17 00:12 95 12/25/17 23:01 12/25/17 22:20 12/25/17 22:10 99 12/25/17 22:08 12/25/17 20:16 96 12/25/17 15:38 12/25/17 15:13 12/25/17 15:08 12/25/17 11:28 - Physical Examination General: No Apparent Distress HEENT: Positive: Pallor Cardiac: Positive: Reg Rate and Rhythm Lungs: Positive: Decreased Breath Sounds Neuro: Positive: Weakness Abdomen: Positive: Soft - Labs and Meds CBC 12/26/17 Range/Units 06:33 WBC 12.9 H (4.5-11.0) K/mm3 RBC 3.63 L (3.65-5.03) M/mm3 Hgb 11.0 (10.1-14.3) gm/dl Hct 33.4 (30.3-42.9) % Plt Count 394 (140-440) K/mm3 Lymph # 1.9 (1.2-5.4) K/mm3 [place] # 1.0 H (0.0-0.8) K/mm3 Eos # 0.2 (0.0-0.4) K/mm3 Baso # 0.1 (0.0-0.1) K/mm3 Comprehensive Metabolic Panel 12/26/17 Range/Units 06:33 Sodium 144 (137-145) mmol/L Potassium 3.6 (3.6-5.0) mmol/L Chloride 99.2 (98-107) mmol/L Carbon Dioxide 30 (22-30) mmol/L BUN 12 (7-17) mg/dL Creatinine 0.8 (0.7-1.2) mg/dL Glucose 86 (65-100) mg/dL Calcium 7.8 L (8.4-10.2) mg/dL
[2017-12-26] MEDS: LASIX PO SCH (10:43)
[2017-12-26] MEDS: LACTINEX PO SCH ×2 (10:43→22:17)
[2017-12-26] MEDS: ZESTRIL PO SCH (10:43)
[2017-12-26] MEDS: MUCINEX ER PO SCH ×2 (10:44→22:15)
[2017-12-26] MEDS: ELIQUIS PO SCH ×2 (10:44→22:15)
--- NOTE | 2017-12-26 10:46 | Progress Note ---
Assessment and Plan Assessment and plan: --A. fib with rapid ventricular rate; now rate controlled continue Cardizem, beta blockers, Eliquis, Cardiology Following --Intractable diarrhea; significantly improved, C. difficile test is negative, oral Flagyl, stool evaluation, IV fluids, Lomotil as needed Consider ID evaluation if no improvement --Right lower lobe pneumonia; continue current antibiotics, follow cultures Pulmonary following, probably residual pneumonia from recent illness --Follow speech therapy evaluated, modified barium swallow, or evidence of aspiration risk --Hypertension; moderate control, continue current antihypertensives and when necessary medications --Dyslipidemia; stable on lipid-lowering medications --History of hypothyroidism; continue Synthroid, --DVT prophylaxis with Lovenox and SCD --Full code status Physical therapy; patient is too weak to participate in therapy, becomes tachycardic easily DC planning. Case management I reviewed patient's condition treatment and discharge plan with the daughter at the bedside Recommended subacute rehabilitation, however patient and the daughter refused, would like to go home on home health Possible discharge home tomorrow with home health and home oxygen is already setup History Interval history: Patient seen and examined medical records reviewed Patient feels slightly better, complains of tiredness Atrial fibrillation rate controlled Diet he is significantly improved Alert and awake and responding appropriately Vital signs reviewed Hospitalist Physical - Constitutional Vitals: Temp Pulse Resp BP Pulse Ox 97.5 F L 165 H 18 121/41 95 12/26/17 09:59 12/26/17 10:43 12/26/17 10:12 12/26/17 09:59 12/26/17 10:04 General appearance: Present: no acute distress, cachectic, other (looks tired) - EENT Eyes: Present: PERRL, EOM intact - Neck Neck: Present: supple, normal ROM - Respiratory Respiratory effort: normal Respiratory: bilateral: diminished, rhonchi, negative: rales, wheezing - Cardiovascular Rhythm: irregularly irregular Heart Sounds: Present: S1 & S2 - Extremities Extremities: no ischemia, No edema - Abdominal General gastrointestinal: soft, non-tender, non-distended, normal bowel sounds - Integumentary Integumentary: Present: clear, warm - Psychiatric Psychiatric: appropriate mood/affect, cooperative - Neurologic Neurologic: CNII-XII intact, moves all extremities Results - Labs CBC & Chem 7: 12/26/17 06:33 12/26/17 06:33 Labs: Laboratory Last Values WBC 12.9 K/mm3 (4.5-11.0) H 12/26/17 06:33 RBC 3.63 M/mm3 (3.65-5.03) L 12/26/17 06:33 Hgb 11.0 gm/dl (10.1-14.3) 12/26/17 06:33 Hct 33.4 % (30.3-42.9) 12/26/17 06:33 MCV 92 fl (79-97) 12/26/17 06:33 MCH 30 pg (28-32) 12/26/17 06:33 MCHC 33 % (30-34) 12/26/17 06:33 RDW 13.4 % (13.2-15.2) 12/26/17 06:33 Plt Count 394 K/mm3 (140-440) 12/26/17 06:33 Lymph % (Auto) 14.7 % (13.4-35.0) 12/26/17 06:33 [place] % (Auto) 7.8 % (0.0-7.3) H 12/26/17 06:33 Eos % (Auto) 1.2 % (0.0-4.3) 12/26/17 06:33 Baso % (Auto) 0.6 % (0.0-1.8) 12/26/17 06:33 Lymph # 1.9 K/mm3 (1.2-5.4) 12/26/17 06:33 [place] # 1.0 K/mm3 (0.0-0.8) H 12/26/17 06:33 Eos # 0.2 K/mm3 (0.0-0.4) 12/26/17 06:33 Baso # 0.1 K/mm3 (0.0-0.1) 12/26/17 06:33 Add Manual Diff Complete 12/26/17 06:33 Total Counted 100 12/21/17 05:04 Seg Neutrophils % 75.7 % (40.0-70.0) H 12/26/17 06:33 Seg Neuts % (Manual) 66.0 % (40.0-70.0) 12/21/17 05:04 Band Neutrophils % 6.0 % 12/21/17 05:04 Lymphocytes % (Manual) 12.0 % (13.4-35.0) L 12/21/17 05:04 Reactive Lymphs % (Man) 0 % 12/21/17 05:04 Monocytes % (Manual) 15.0 % (0.0-7.3) H 12/21/17 05:04 Eosinophils % (Manual) 0 % (0.0-4.3) 12/21/17 05:04 Basophils % (Manual) 0 % (0.0-1.8) 12/20/17 06:23 Metamyelocytes % 1.0 % 12/21/17 05:04 Myelocytes % 0 % 12/21/17 05:04 Promyelocytes % 0 % 12/21/17 05:04 Blast Cells % 0 % 12/21/17 05:04 Nucleated RBC % Not Reportable 12/21/17 05:04 Seg Neutrophils # 9.8 K/mm3 (1.8-7.7) H 12/26/17 06:33 Seg Neutrophils # Man 13.5 K/mm3 (1.8-7.7) H 12/21/17 05:04 Band Neutrophils # 1.2 K/mm3 12/21/17 05:04 Lymphocytes # (Manual) 2.5 K/mm3 (1.2-5.4) 12/21/17 05:04 Abs React Lymphs (Man) 0.0 K/mm3 12/21/17 05:04 Monocytes # (Manual) 3.1 K/mm3 (0.0-0.8) H 12/21/17 05:04 Eosinophils # (Manual) 0.0 K/mm3 (0.0-0.4) 12/21/17 05:04 Basophils # (Manual) 0.0 K/mm3 (0.0-0.1) 12/21/17 05:04 Metamyelocytes # 0.2 K/mm3 12/21/17 05:04 Myelocytes # 0.0 K/mm3 12/21/17 05:04 Promyelocytes # 0.0 K/mm3 12/21/17 05:04 Blast Cells # 0.0 K/mm3 12/21/17 05:04 WBC Morphology Not Reportable 12/21/17 05:04 Hypersegmented Neuts Not Reportable 12/21/17 05:04 Hyposegmented Neuts Not Reportable 12/21/17 05:04 Hypogranular Neuts Not Reportable 12/21/17 05:04 Smudge Cells Not Reportable 12/21/17 05:04 Toxic Granulation Not Reportable 12/21/17 05:04 Toxic Vacuolation Not Reportable 12/21/17 05:04 Dohle Bodies Not Reportable 12/21/17 05:04 Pelger-Huet Anomaly Not Reportable 12/21/17 05:04 Andrei Rods Not Reportable 12/21/17 05:04 Platelet Estimate Appears normal 12/21/17 05:04 Clumped Platelets Not Reportable 12/21/17 05:04 Plt Clumps, EDTA Not Reportable 12/21/17 05:04 Large Platelets Not Reportable 12/21/17 05:04 Giant Platelets Not Reportable 12/21/17 05:04 Platelet Satelliting Not Reportable 12/21/17 05:04 Plt Morphology Comment Not Reportable 12/21/17 05:04 RBC Morphology Not Reportable 12/21/17 05:04 Dimorphic RBCs Not Reportable 12/21/17 05:04 Polychromasia Not Reportable 12/21/17 05:04 Hypochromasia Not Reportable 12/21/17 05:04 Poikilocytosis Not Reportable 12/21/17 05:04 Anisocytosis Not Reportable 12/21/17 05:04 Microcytosis Not Reportable 12/21/17 05:04 Macrocytosis Not Reportable 12/21/17 05:04 Spherocytes Not Reportable 12/21/17 05:04 Pappenheimer Bodies Not Reportable 12/21/17 05:04 Sickle Cells Not Reportable 12/21/17 05:04 Target Cells Not Reportable 12/21/17 05:04 Tear Drop Cells Not Reportable 12/21/17 05:04 Ovalocytes Not Reportable 12/21/17 05:04 Helmet Cells Not Reportable 12/21/17 05:04 [place] Bodies Not Reportable 12/21/17 05:04 [place] Rings Not Reportable 12/21/17 05:04 [place] Cells Not Reportable 12/21/17 05:04 Bite Cells Not Reportable 12/21/17 05:04 Crenated Cell Not Reportable 12/21/17 05:04 Elliptocytes Not Reportable 12/21/17 05:04 Acanthocytes (Spur) Not Reportable 12/21/17 05:04 Rouleaux Not Reportable 12/21/17 05:04 Hemoglobin C Crystals Not Reportable 12/21/17 05:04 Schistocytes Not Reportable 12/21/17 05:04 Malaria parasites Not Reportable 12/21/17 05:04 Chriss Bodies Not Reportable 12/21/17 05:04 Hem Pathologist Commnt No 12/21/17 05:04 PT 16.5 Sec. (12.2-14.9) H 12/18/17 12:10 INR 1.26 (0.87-1.13) H 12/18/17 12:10 POC ABG pH 7.487 (7.35-7.45) H 12/18/17 14:30 POC ABG pCO2 32.6 (35-45) L 12/18/17 14:30 POC ABG pO2 65 (80-105) L 12/18/17 14:30 POC ABG HCO3 24.7 12/18/17 14:30 POC ABG Total CO2 26 12/18/17 14:30 POC ABG O2 Sat 94 12/18/17 14:30 POC ABG Base Excess 1 12/18/17 14:30 VBG pH 7.534 (7.320-7.420) H 12/18/17 12:10 FiO2 28 % 12/18/17 14:30 Sodium 144 mmol/L (137-145) 12/26/17 06:33 Potassium 3.6 mmol/L (3.6-5.0) 12/26/17 06:33 Chloride 99.2 mmol/L (98-107) 12/26/17 06:33 Carbon Dioxide 30 mmol/L (22-30) 12/26/17 06:33 Anion Gap 18 mmol/L 12/26/17 06:33 BUN 12 mg/dL (7-17) 12/26/17 06:33 Creatinine 0.8 mg/dL (0.7-1.2) 12/26/17 06:33 Estimated GFR > 60 ml/min 12/26/17 06:33 BUN/Creatinine Ratio 15 % 12/26/17 06:33 Glucose 86 mg/dL (65-100) 12/26/17 06:33 Lactic Acid 1.00 mmol/L (0.7-2.0) 12/19/17 04:36 Calcium 7.8 mg/dL (8.4-10.2) L 12/26/17 06:33 Magnesium 1.80 mg/dL (1.7-2.3) 12/26/17 06:33 Total Bilirubin 0.50 mg/dL (0.1-1.2) 12/19/17 04:36 Direct Bilirubin 0.2 mg/dL (0-0.2) 12/18/17 12:10 Indirect Bilirubin 0.3 mg/dL 12/18/17 12:10 AST 18 units/L (5-40) 12/19/17 04:36 ALT 18 units/L (7-56) 12/19/17 04:36 Alkaline Phosphatase 72 units/L (35-129) 12/19/17 04:36 Total Creatine Kinase 21 units/L (30-135) L 12/18/17 12:10 CK-MB (CK-2) 2.0 ng/mL (0.0-4.0) 12/18/17 12:10 CK-MB (CK-2) Rel Index 9.5 (0-4) H 12/18/17 12:10 Troponin T < 0.010 ng/mL (0.00-0.029) 12/18/17 12:10 NT-Pro-B Natriuret Pep 1948 pg/mL (0-900) H 12/18/17 12:10 Total Protein 6.2 g/dL (6.3-8.2) L 12/19/17 04:36 Albumin 2.4 g/dL (3.9-5) L 12/19/17 04:36 Albumin/Globulin Ratio 0.6 % 12/19/17 04:36 TSH 0.311 mlU/mL (0.270-4.200) 12/20/17 06:23 Free T4 1.66 ng/dL (0.76-1.46) H 12/20/17 06:23 Urine Color Yellow (Yellow) 12/18/17 18:35 Urine Turbidity Clear (Clear) 12/18/17 18:35 Urine pH 5.0 (5.0-7.0) 12/18/17 18:35 Ur Specific [place] 1.021 (1.003-1.030) 12/18/17 18:35 Urine Protein 30 mg/dl mg/dL (Negative) 12/18/17 18:35 Urine Glucose (UA) Neg mg/dL (Negative) 12/18/17 18:35 Urine Ketones Tr mg/dL (Negative) 12/18/17 18:35 Urine Blood Neg (Negative) 12/18/17 18:35 Urine Nitrite Neg (Negative) 12/18/17 18:35 Urine Bilirubin Neg (Negative) 12/18/17 18:35 Urine Urobilinogen < 2.0 mg/dL (<2.0) 12/18/17 18:35 Ur Leukocyte Esterase Neg (Negative) 12/18/17 18:35 Urine WBC (Auto) 2.0 /HPF (0.0-6.0) 12/18/17 18:35 Urine RBC (Auto) 5.0 /HPF (0.0-6.0) 12/18/17 18:35 U Epithel Cells (Auto) < 1.0 /HPF (0-13.0) 12/18/17 18:35 Urine Mucus Few /HPF 12/18/17 18:35 C. difficile Toxin A&B Negative (Negative) 12/23/17 11:40 Blood Type O POSITIVE 12/18/17 12:10 Antibody Screen Negative 12/18/17 12:10
--- NOTE | 2017-12-26 14:26 | Progress Note ---
Assessment and Plan Imp: 1. Bronchiectasis on 2010 CT chest (reviewed [facility] images), RML and lingula 2. Pneumonia in setting of #1, doubt aspiration 3. Mild oral dysphagia 4. Acute respiratory failure, hypoxia 5. Mitral stenosis 6. Mild pulm HTN 7. Afib w/ RVR Rec: 1. Cont. Zosyn; sputum culture negative 2. In light of #1 above, added flutter valve BID (d/w RT), Mucinex BID, and mucomyst nebs + Xopenex BID (if continued issues with AFib/RVR will have to stop the TARI) 3. ST evaluation reviewed and appreciated -> follow recs at home 4. PT/OOB/ambulate 5. Lactinex re: diarrhea 6. Consider repeating Ct chest if no further improvement 7. Replete mag to keep > 2.0 Plan of care reviewed with patient/family, they understand/agree Subjective Date of service: 12/26/17 Principal diagnosis: Pneumonia Interval history: No events. Afib required diltiazem drip yesterday. Had another episode after Xopenex this AM requiring Lopressor IV. SOB is better than yesterday. Cough/ sputum still but has improved. Active Medications Acetylcysteine (Mucomyst Inhalation) 200 mg INHALATION Q12HRT [facility] Last Admin: 12/26/17 09:58 Dose: 200 mg Al Hydrox/Mg Hydrox/Simethicone (Alum-Mag Hydrox-Simeth [phone]/5ml) 30 ml PO Q4H PRN PRN Reason: Indigestion Alprazolam (Xanax) 0.25 mg PO Q8H PRN PRN Reason: Anxiety Apixaban (Eliquis) 2.5 mg PO BID ABHIJIT PRN Reason: Protocol Last Admin: 12/26/17 10:44 Dose: 2.5 mg Atorvastatin Calcium (Lipitor) 20 mg PO Th [facility] Last Admin: 12/19/17 22:20 Dose: 20 mg Atorvastatin Calcium (Lipitor) 20 mg PO Foster [facility] Bisacodyl (Dulcolax) 10 mg WA QDAY PRN PRN Reason: constipation unrelieved by MOM Diltiazem HCl (Cardizem) 60 mg PO Q8HR [facility] Diphenoxylate HCl/Atropine (Lomotil) 1 tab PO Q6H PRN PRN Reason: Diarrhea Last Admin: 12/24/17 14:54 Dose: 1 tab Furosemide (Lasix) 20 mg PO QDAY [facility] Last Admin: 12/26/17 10:43 Dose: 20 mg Guaifenesin (Mucinex Er) 600 mg PO BID [facility] Last Admin: 12/26/17 10:44 Dose: 600 mg Hydromorphone HCl (Dilaudid) 0.5 mg IV Q3H PRN PRN Reason: Pain , Severe (7-10) Piperacillin Sod/Tazobactam Sod (Zosyn/Ns 4.5gm/100ml) 4.5 gm in 100 mls @ 200 mls/hr IV Q8H [facility] PRN Reason: Protocol Last Admin: 12/26/17 10:44 Dose: 200 mls/hr Magnesium Sulfate (Magnesium Sulfate 2gm/50ml) 2 gm in 50 mls @ 25 mls/hr IV ONCE ONE Stop: 12/26/17 16:21 Lactobacillus Acidophilus (Lactinex) 1 each PO BID [facility] Last Admin: 12/26/17 10:43 Dose: 1 each Levalbuterol HCl (Xopenex) 1.25 mg IH BID [facility] Last Admin: 12/26/17 09:58 Dose: 1.25 mg Levothyroxine Sodium (Synthroid) 50 mcg PO QDAY@0600 [facility] Last Admin: 12/26/17 07:02 Dose: 50 mcg Lisinopril (Zestril) 5 mg PO QDAY [facility] Last Admin: 12/26/17 10:43 Dose: 5 mg Magnesium Hydroxide (Milk Of Magnesia) 30 ml PO Q4H PRN PRN Reason: Constipation Metoprolol Tartrate (Lopressor) 2.5 mg IV Q4HR PRN PRN Reason: HR >130 Last Admin: 12/26/17 10:43 Dose: 2.5 mg Metronidazole (Flagyl) 500 mg PO Q8HR [facility] Last Admin: 12/26/17 07:02 Dose: 500 mg Morphine Sulfate (Morphine) 4 mg IV Q4H PRN PRN Reason: Pain , Severe (7-10) Ondansetron HCl (Zofran) 4 mg IV Q6H PRN PRN Reason: Nausea And Vomiting Last Admin: 12/25/17 00:13 Dose: 4 mg Oxycodone/Acetaminophen (Percocet 5/325) 1 tab PO Q6H PRN PRN Reason: Pain, Moderate (4-6) Last Admin: 12/23/17 22:59 Dose: 1 tab Objective Vital Signs - 12hr 12/26/17 12/26/17 12/26/17 05:16 07:02 09:55 Temperature 97.6 F Pulse Rate 79 85 80 Pulse Rate [ Anterior Bilateral Throughout] Respiratory 18 18 Rate Respiratory Rate [Anterior Bilateral Throughout] Blood Pressure 117/78 Blood Pressure 125/49 [Right] O2 Sat by Pulse 97 96 Oximetry 12/26/17 12/26/17 12/26/17 09:59 10:04 10:12 Temperature 97.5 F L Pulse Rate 62 Pulse Rate [ 73 87 Anterior Bilateral Throughout] Respiratory 18 Rate Respiratory 18 18 Rate [Anterior Bilateral Throughout] Blood Pressure Blood Pressure 121/41 [Right] O2 Sat by Pulse 95 Oximetry 12/26/17 12/26/17 10:43 13:10 Temperature 97.8 F Pulse Rate 165 H 75 Pulse Rate [ Anterior Bilateral Throughout] Respiratory 18 Rate Respiratory Rate [Anterior Bilateral Throughout] Blood Pressure Blood Pressure 118/42 [Right] O2 Sat by Pulse 95 Oximetry Constitutional: no acute distress, alert Eyes: non-icteric ENT: oropharynx moist Neck: supple Effort: normal Ascultation: Bilateral: rales (better), rhonchi (better) Cardiovascular: irregular rhythm (no mrg) Gastrointestinal: normoactive bowel sounds, soft, non-tender Integumentary: normal Extremities: no cyanosis, no edema, pink and warm Neurologic: normal mental status, non-focal exam Psychiatric: mood appropriate, affect normal CBC and BMP: 12/26/17 06:33 12/26/17 06:33 ABG, PT/INR, D-dimer: ABG POC ABG pH 7.487 (7.35-7.45) H 12/18/17 14:30 POC ABG pCO2 32.6 (35-45) L 12/18/17 14:30 POC ABG pO2 65 (80-105) L 12/18/17 14:30 POC ABG HCO3 24.7 12/18/17 14:30 POC ABG Total CO2 26 12/18/17 14:30 POC ABG O2 Sat 94 12/18/17 14:30 PT/INR, D-dimer PT 16.5 Sec. (12.2-14.9) H 12/18/17 12:10 INR 1.26 (0.87-1.13) H 12/18/17 12:10 Abnormal lab findings: Abnormal Labs 12/18/17 12/18/17 12/18/17 12:10 12:10 12:10 WBC 24.0 H RBC RDW 13.0 L Plt Count 460 H [place] % (Auto) [place] # Seg Neutrophils % Seg Neuts % (Manual) 84.0 H Lymphocytes % (Manual) 2.0 L Monocytes % (Manual) Seg Neutrophils # Seg Neutrophils # Man 20.2 H Lymphocytes # (Manual) 0.5 L Monocytes # (Manual) 1.4 H PT INR POC ABG pH POC ABG pCO2 POC ABG pO2 VBG pH Sodium Carbon Dioxide BUN 23 H Creatinine 0.6 L Glucose 140 H Lactic Acid 2.20 H* Calcium 8.0 L Magnesium Total Creatine Kinase CK-MB (CK-2) Rel Index NT-Pro-B Natriuret Pep Total Protein 5.8 L Albumin 3.0 L Free T4 12/18/17 12/18/17 12/18/17 12:10 12:10 12:10 WBC RBC RDW Plt Count [place] % (Auto) [place] # Seg Neutrophils % Seg Neuts % (Manual) Lymphocytes % (Manual) Monocytes % (Manual) Seg Neutrophils # Seg Neutrophils # Man Lymphocytes # (Manual) Monocytes # (Manual) PT 16.5 H INR 1.26 H POC ABG pH POC ABG pCO2 POC ABG pO2 VBG pH Sodium Carbon Dioxide BUN Creatinine Glucose Lactic Acid Calcium Magnesium 1.60 L Total Creatine Kinase 21 L CK-MB (CK-2) Rel Index 9.5 H NT-Pro-B Natriuret Pep 1948 H Total Protein Albumin Free T4 12/18/17 12/18/17 12/19/17 12:10 14:30 04:36 WBC 20.3 H RBC RDW Plt Count [place] % (Auto) [place] # Seg Neutrophils % Seg Neuts % (Manual) 90.0 H Lymphocytes % (Manual) 5.0 L Monocytes % (Manual) Seg Neutrophils # Seg Neutrophils # Man 18.3 H Lymphocytes # (Manual) 1.0 L Monocytes # (Manual) PT INR POC ABG pH 7.487 H POC ABG pCO2 32.6 L POC ABG pO2 65 L VBG pH 7.534 H Sodium Carbon Dioxide BUN Creatinine Glucose Lactic Acid Calcium Magnesium Total Creatine Kinase CK-MB (CK-2) Rel Index NT-Pro-B Natriuret Pep Total Protein Albumin Free T4 12/19/17 12/20/17 12/20/17 04:36 06:23 06:23 WBC 19.3 H RBC RDW 13.1 L Plt Count [place] % (Auto) [place] # Seg Neutrophils % Seg Neuts % (Manual) 96.0 H Lymphocytes % (Manual) 2.0 L Monocytes % (Manual) Seg Neutrophils # Seg Neutrophils # Man 18.5 H Lymphocytes # (Manual) 0.4 L Monocytes # (Manual) PT INR POC ABG pH POC ABG pCO2 POC ABG pO2 VBG pH Sodium Carbon Dioxide BUN 24 H Creatinine Glucose 146 H Lactic Acid Calcium 7.8 L 7.9 L Magnesium Total Creatine Kinase CK-MB (CK-2) Rel Index NT-Pro-B Natriuret Pep Total Protein 6.2 L Albumin 2.4 L Free T4 12/20/17 12/21/17 12/24/17 06:23 05:04 06:05 WBC 20.5 H 14.5 H RBC 3.57 L RDW 12.8 L 12.9 L Plt Count [place] % (Auto) 7.8 H [place] # 1.1 H Seg Neutrophils % 75.4 H Seg Neuts % (Manual) Lymphocytes % (Manual) 12.0 L Monocytes % (Manual) 15.0 H Seg Neutrophils # 11.0 H Seg Neutrophils # Man 13.5 H Lymphocytes # (Manual) Monocytes # (Manual) 3.1 H PT INR POC ABG pH POC ABG pCO2 POC ABG pO2 VBG pH Sodium Carbon Dioxide BUN Creatinine Glucose Lactic Acid Calcium Magnesium Total Creatine Kinase CK-MB (CK-2) Rel Index NT-Pro-B Natriuret Pep Total Protein Albumin Free T4 1.66 H 12/24/17 12/26/17 12/26/17 06:05 06:33 06:33 WBC 12.9 H RBC 3.63 L RDW Plt Count [place] % (Auto) 7.8 H [place] # 1.0 H Seg Neutrophils % 75.7 H Seg Neuts % (Manual) Lymphocytes % (Manual) Monocytes % (Manual) Seg Neutrophils # 9.8 H Seg Neutrophils # Man Lymphocytes # (Manual) Monocytes # (Manual) PT INR POC ABG pH POC ABG pCO2 POC ABG pO2 VBG pH Sodium 146 H Carbon Dioxide 32 H D BUN Creatinine 0.6 L Glucose Lactic Acid Calcium 7.6 L 7.8 L Magnesium Total Creatine Kinase CK-MB (CK-2) Rel Index NT-Pro-B Natriuret Pep Total Protein Albumin Free T4 Chest x-ray: report reviewed, image reviewed
[2017-12-26] MEDS ORDERED: MAGNESIUM SULFATE 2GM/50ML 2 GM/50 ML BAG IV ONE (15:00)
[2017-12-27] MEDS: ZOSYN/NS 4.5GM/100ML 4.5 GM/100 ML VIAL IV SCH ×3 (02:01→18:28)
[2017-12-27] MEDS: SYNTHROID PO SCH (05:52)
[2017-12-27] MEDS: CARDIZEM PO SCH ×3 (05:52→23:32)
[2017-12-27] MEDS: FLAGYL PO SCH ×3 (05:52→23:32)
[2017-12-27] MEDS: XOPENEX IH SCH ×2 (08:59→20:29)
[2017-12-27] MEDS: MUCOMYST INHALATION INHALATION SCH ×2 (08:59→20:29)
[2017-12-27] MEDS: LACTINEX PO SCH ×2 (10:18→23:31)
[2017-12-27] MEDS: ELIQUIS PO SCH ×2 (10:18→23:31)
[2017-12-27] MEDS: LASIX PO SCH (10:18)
[2017-12-27] MEDS: ZESTRIL PO SCH (10:19)
[2017-12-27] MEDS: MUCINEX ER PO SCH ×2 (10:50→23:32)
--- NOTE | 2017-12-27 12:04 | Progress Note ---
Assessment and Plan Pneumonia History of multiple admissions for pneumonia recently Biapical scarring and pleural thickening on CXR suggesting underlying pulmonary fibrosis Paroxysmal atrial fibrillation currently in sinus rhythm on diltiazem Anticoagulated with eliquis as outpatient Normal LVEF by echo with mild to moderate mitral stenosis. Thyroid disorder Systemic Hypertension Hyperlipidemia Continue diltiazem and oral anticoagulation for paroxysmal atrial fibrillation. Judicious use of AV tabitha blocking therapy, due to concerns about possible tachybradycardia or sick sinus syndrome. Subjective Date of service: 12/27/17 Principal diagnosis: Pneumonia Interval history: Patient appears deconditioned. Sinus rhythm with PACs on telemetry. Objective Vital Signs Temp Pulse Pulse Resp Resp BP Pulse Ox 12/27/17 10:00 75 12/27/17 09:09 78 20 12/27/17 08:59 72 18 96 12/27/17 08:55 98.5 F 75 20 119/42 98 12/27/17 06:07 98.2 F 55 L 20 139/57 93 12/27/17 02:00 98.6 F 80 18 124/41 91 12/26/17 22:40 98 12/26/17 22:07 98.3 F 62 20 120/37 95 12/26/17 21:03 22 12/26/17 20:57 86 20 12/26/17 20:47 83 20 12/26/17 18:25 98.0 F 76 20 131/42 97 12/26/17 13:10 97.8 F 75 18 118/42 95 - Physical Examination General: No Apparent Distress HEENT: Positive: Pallor Cardiac: Positive: Irregularly Regular Neuro: Positive: Weakness
[2017-12-27] MEDS: CORDARONE PO SCH ×2 (13:07→23:32)
--- NOTE | 2017-12-27 13:39 | Progress Note ---
Assessment and Plan Assessment and plan: --A. fib with rapid ventricular rate; now rate controlled, no RPR in the last 24 hours continue Cardizem, beta blockers, Eliquis, Cardiology Following --Diarrhea; significantly improved, C. difficile test is negative, oral Flagyl, IV fluids, Lomotil as needed --Right lower lobe pneumonia; continue current antibiotics, follow cultures Pulmonary following, probably residual pneumonia from recent illness --Hypertension; moderate control, continue current antihypertensives and when necessary medications --Dyslipidemia; stable on lipid-lowering medications --History of hypothyroidism; continue Synthroid, --DVT prophylaxis with Lovenox and SCD --Full code status Physical therapy; as tolerated DC planning. Case management Patient is hemodynamically stable, very week. Discharge plan discussed in detail with the patient and family members Recommend subacute rehabilitation/home with home health/home hospice Patient does not want to go rehabilitation, they opted for home with hospice Discussed with correctional case manager, DC planning possible discharge today or tomorrow if stable Possible discharge today/tomorrow with home hospice, patient already has home oxygen delivered Plan of care reviewed with the patient and familyand case management History Interval history: Patient seen and evaluated medical records reviewed Patient is feeling much better but very weak and tired No new episodes of A. fib with rapid ventricular last 24 hours Patient's diarrhea is resolved, Tolerating diet. Alert awake oriented 3 Vital signs reviewed Hospitalist Physical - Constitutional Vitals: Temp Pulse Resp BP Pulse Ox 97.9 F 182 H 20 146/53 95 12/27/17 12:39 12/27/17 13:05 12/27/17 12:39 12/27/17 12:39 12/27/17 12:39 General appearance: Present: no acute distress, cachectic, other (looks tired) - EENT Eyes: Present: PERRL, EOM intact - Neck Neck: Present: supple, normal ROM - Respiratory Respiratory effort: normal Respiratory: bilateral: diminished, negative: rales, rhonchi, wheezing - Cardiovascular Rhythm: regular Heart Sounds: Present: S1 & S2 - Extremities Extremities: no ischemia, No edema - Abdominal General gastrointestinal: soft, non-tender, non-distended, normal bowel sounds - Integumentary Integumentary: Present: clear, warm - Psychiatric Psychiatric: appropriate mood/affect, cooperative - Neurologic Neurologic: moves all extremities Results - Labs CBC & Chem 7: 12/26/17 06:33 12/26/17 06:33 Labs: Laboratory Last Values WBC 12.9 K/mm3 (4.5-11.0) H 12/26/17 06:33 RBC 3.63 M/mm3 (3.65-5.03) L 12/26/17 06:33 Hgb 11.0 gm/dl (10.1-14.3) 12/26/17 06:33 Hct 33.4 % (30.3-42.9) 12/26/17 06:33 MCV 92 fl (79-97) 12/26/17 06:33 MCH 30 pg (28-32) 12/26/17 06:33 MCHC 33 % (30-34) 12/26/17 06:33 RDW 13.4 % (13.2-15.2) 12/26/17 06:33 Plt Count 394 K/mm3 (140-440) 12/26/17 06:33 Lymph % (Auto) 14.7 % (13.4-35.0) 12/26/17 06:33 [place] % (Auto) 7.8 % (0.0-7.3) H 12/26/17 06:33 Eos % (Auto) 1.2 % (0.0-4.3) 12/26/17 06:33 Baso % (Auto) 0.6 % (0.0-1.8) 12/26/17 06:33 Lymph # 1.9 K/mm3 (1.2-5.4) 12/26/17 06:33 [place] # 1.0 K/mm3 (0.0-0.8) H 12/26/17 06:33 Eos # 0.2 K/mm3 (0.0-0.4) 12/26/17 06:33 Baso # 0.1 K/mm3 (0.0-0.1) 12/26/17 06:33 Add Manual Diff Complete 12/26/17 06:33 Total Counted 100 12/21/17 05:04 Seg Neutrophils % 75.7 % (40.0-70.0) H 12/26/17 06:33 Seg Neuts % (Manual) 66.0 % (40.0-70.0) 12/21/17 05:04 Band Neutrophils % 6.0 % 12/21/17 05:04 Lymphocytes % (Manual) 12.0 % (13.4-35.0) L 12/21/17 05:04 Reactive Lymphs % (Man) 0 % 12/21/17 05:04 Monocytes % (Manual) 15.0 % (0.0-7.3) H 12/21/17 05:04 Eosinophils % (Manual) 0 % (0.0-4.3) 12/21/17 05:04 Basophils % (Manual) 0 % (0.0-1.8) 12/20/17 06:23 Metamyelocytes % 1.0 % 12/21/17 05:04 Myelocytes % 0 % 12/21/17 05:04 Promyelocytes % 0 % 12/21/17 05:04 Blast Cells % 0 % 12/21/17 05:04 Nucleated RBC % Not Reportable 12/21/17 05:04 Seg Neutrophils # 9.8 K/mm3 (1.8-7.7) H 12/26/17 06:33 Seg Neutrophils # Man 13.5 K/mm3 (1.8-7.7) H 12/21/17 05:04 Band Neutrophils # 1.2 K/mm3 12/21/17 05:04 Lymphocytes # (Manual) 2.5 K/mm3 (1.2-5.4) 12/21/17 05:04 Abs React Lymphs (Man) 0.0 K/mm3 12/21/17 05:04 Monocytes # (Manual) 3.1 K/mm3 (0.0-0.8) H 12/21/17 05:04 Eosinophils # (Manual) 0.0 K/mm3 (0.0-0.4) 12/21/17 05:04 Basophils # (Manual) 0.0 K/mm3 (0.0-0.1) 12/21/17 05:04 Metamyelocytes # 0.2 K/mm3 12/21/17 05:04 Myelocytes # 0.0 K/mm3 12/21/17 05:04 Promyelocytes # 0.0 K/mm3 12/21/17 05:04 Blast Cells # 0.0 K/mm3 12/21/17 05:04 WBC Morphology Not Reportable 12/21/17 05:04 Hypersegmented Neuts Not Reportable 12/21/17 05:04 Hyposegmented Neuts Not Reportable 12/21/17 05:04 Hypogranular Neuts Not Reportable 12/21/17 05:04 Smudge Cells Not Reportable 12/21/17 05:04 Toxic Granulation Not Reportable 12/21/17 05:04 Toxic Vacuolation Not Reportable 12/21/17 05:04 Dohle Bodies Not Reportable 12/21/17 05:04 [place]-Huet Anomaly Not Reportable 12/21/17 05:04 Andrei Rods Not Reportable 12/21/17 05:04 Platelet Estimate Appears normal 12/21/17 05:04 Clumped Platelets Not Reportable 12/21/17 05:04 Plt Clumps, EDTA Not Reportable 12/21/17 05:04 Large Platelets Not Reportable 12/21/17 05:04 Giant Platelets Not Reportable 12/21/17 05:04 Platelet Satelliting Not Reportable 12/21/17 05:04 Plt Morphology Comment Not Reportable 12/21/17 05:04 RBC Morphology Not Reportable 12/21/17 05:04 Dimorphic RBCs Not Reportable 12/21/17 05:04 Polychromasia Not Reportable 12/21/17 05:04 Hypochromasia Not Reportable 12/21/17 05:04 Poikilocytosis Not Reportable 12/21/17 05:04 Anisocytosis Not Reportable 12/21/17 05:04 Microcytosis Not Reportable 12/21/17 05:04 Macrocytosis Not Reportable 12/21/17 05:04 Spherocytes Not Reportable 12/21/17 05:04 Pappenheimer Bodies Not Reportable 12/21/17 05:04 Sickle Cells Not Reportable 12/21/17 05:04 Target Cells Not Reportable 12/21/17 05:04 Tear Drop Cells Not Reportable 12/21/17 05:04 Ovalocytes Not Reportable 12/21/17 05:04 Helmet Cells Not Reportable 12/21/17 05:04 [place] Bodies Not Reportable 12/21/17 05:04 [place] Rings Not Reportable 12/21/17 05:04 [place] Cells Not Reportable 12/21/17 05:04 Bite Cells Not Reportable 12/21/17 05:04 Crenated Cell Not Reportable 12/21/17 05:04 Elliptocytes Not Reportable 12/21/17 05:04 Acanthocytes (Spur) Not Reportable 12/21/17 05:04 Rouleaux Not Reportable 12/21/17 05:04 Hemoglobin C Crystals Not Reportable 12/21/17 05:04 Schistocytes Not Reportable 12/21/17 05:04 Malaria parasites Not Reportable 12/21/17 05:04 Chriss Bodies Not Reportable 12/21/17 05:04 Hem Pathologist Commnt No 12/21/17 05:04 PT 16.5 Sec. (12.2-14.9) H 12/18/17 12:10 INR 1.26 (0.87-1.13) H 12/18/17 12:10 POC ABG pH 7.487 (7.35-7.45) H 12/18/17 14:30 POC ABG pCO2 32.6 (35-45) L 12/18/17 14:30 POC ABG pO2 65 (80-105) L 12/18/17 14:30 POC ABG HCO3 24.7 12/18/17 14:30 POC ABG Total CO2 26 12/18/17 14:30 POC ABG O2 Sat 94 12/18/17 14:30 POC ABG Base Excess 1 12/18/17 14:30 VBG pH 7.534 (7.320-7.420) H 12/18/17 12:10 FiO2 28 % 12/18/17 14:30 Sodium 144 mmol/L (137-145) 12/26/17 06:33 Potassium 3.6 mmol/L (3.6-5.0) 12/26/17 06:33 Chloride 99.2 mmol/L (98-107) 12/26/17 06:33 Carbon Dioxide 30 mmol/L (22-30) 12/26/17 06:33 Anion Gap 18 mmol/L 12/26/17 06:33 BUN 12 mg/dL (7-17) 12/26/17 06:33 Creatinine 0.8 mg/dL (0.7-1.2) 12/26/17 06:33 Estimated GFR > 60 ml/min 12/26/17 06:33 BUN/Creatinine Ratio 15 % 12/26/17 06:33 Glucose 86 mg/dL (65-100) 12/26/17 06:33 Lactic Acid 1.00 mmol/L (0.7-2.0) 12/19/17 04:36 Calcium 7.8 mg/dL (8.4-10.2) L 12/26/17 06:33 Magnesium 1.80 mg/dL (1.7-2.3) 12/26/17 06:33 Total Bilirubin 0.50 mg/dL (0.1-1.2) 12/19/17 04:36 Direct Bilirubin 0.2 mg/dL (0-0.2) 12/18/17 12:10 Indirect Bilirubin 0.3 mg/dL 12/18/17 12:10 AST 18 units/L (5-40) 12/19/17 04:36 ALT 18 units/L (7-56) 12/19/17 04:36 Alkaline Phosphatase 72 units/L (35-129) 12/19/17 04:36 Total Creatine Kinase 21 units/L (30-135) L 12/18/17 12:10 CK-MB (CK-2) 2.0 ng/mL (0.0-4.0) 12/18/17 12:10 CK-MB (CK-2) Rel Index 9.5 (0-4) H 12/18/17 12:10 Troponin T < 0.010 ng/mL (0.00-0.029) 12/18/17 12:10 NT-Pro-B Natriuret Pep 1948 pg/mL (0-900) H 12/18/17 12:10 Total Protein 6.2 g/dL (6.3-8.2) L 12/19/17 04:36 Albumin 2.4 g/dL (3.9-5) L 12/19/17 04:36 Albumin/Globulin Ratio 0.6 % 12/19/17 04:36 TSH 0.311 mlU/mL (0.270-4.200) 12/20/17 06:23 Free T4 1.66 ng/dL (0.76-1.46) H 12/20/17 06:23 Urine Color Yellow (Yellow) 12/18/17 18:35 Urine Turbidity Clear (Clear) 12/18/17 18:35 Urine pH 5.0 (5.0-7.0) 12/18/17 18:35 Ur Specific [place] 1.021 (1.003-1.030) 12/18/17 18:35 Urine Protein 30 mg/dl mg/dL (Negative) 12/18/17 18:35 Urine Glucose (UA) Neg mg/dL (Negative) 12/18/17 18:35 Urine Ketones Tr mg/dL (Negative) 12/18/17 18:35 Urine Blood Neg (Negative) 12/18/17 18:35 Urine Nitrite Neg (Negative) 12/18/17 18:35 Urine Bilirubin Neg (Negative) 12/18/17 18:35 Urine Urobilinogen < 2.0 mg/dL (<2.0) 12/18/17 18:35 Ur Leukocyte Esterase Neg (Negative) 12/18/17 18:35 Urine WBC (Auto) 2.0 /HPF (0.0-6.0) 12/18/17 18:35 Urine RBC (Auto) 5.0 /HPF (0.0-6.0) 12/18/17 18:35 U Epithel Cells (Auto) < 1.0 /HPF (0-13.0) 12/18/17 18:35 Urine Mucus Few /HPF 12/18/17 18:35 C. difficile Toxin A&B Negative (Negative) 12/23/17 11:40 Blood Type O POSITIVE 12/18/17 12:10 Antibody Screen Negative 12/18/17 12:10
[2017-12-27] MEDS ORDERED: CORDARONE 900 MG in D5W 482 ML IV SCH (14:00)
--- NOTE | 2017-12-27 15:39 | Progress Note ---
Assessment and Plan Imp: 1. Bronchiectasis on 2010 CT chest (reviewed [facility] images), RML and lingula 2. Pneumonia in setting of #1, doubt aspiration 3. Mild oral dysphagia 4. Acute respiratory failure, hypoxia 5. Mitral stenosis 6. Mild pulm HTN 7. Afib w/ RVR Rec: 1. Cont. Zosyn x ~ 10 days total; sputum culture negative 2. In light of #1 above, added flutter valve BID (d/w RT), Mucinex BID, and mucomyst nebs + Xopenex BID (if continued issues with AFib/RVR despite amiodarone will have to stop the TARI) 3. ST evaluation reviewed and appreciated -> follow recs at home 4. PT/OOB/ambulate 5. Lactinex re: diarrhea 6. Will go ahead and obtain CT chest in AM 7. Afib as per cards Plan of care reviewed with patient/family, they understand/agree Subjective Date of service: 12/27/17 Principal diagnosis: Pneumonia Interval history: No events. Afib episodes of RVR still occurring and about to be started on Amiodarone drip + PO. SOB is better than yesterday. Cough/sputum much improved. Active Medications Acetylcysteine (Mucomyst Inhalation) 200 mg INHALATION Q12HRT [facility] Last Admin: 12/27/17 08:59 Dose: 200 mg Al Hydrox/Mg Hydrox/Simethicone (Alum-Mag Hydrox-Simeth [id number]/5ml) 30 ml PO Q4H PRN PRN Reason: Indigestion Alprazolam (Xanax) 0.25 mg PO Q8H PRN PRN Reason: Anxiety Amiodarone HCl (Cordarone) 200 mg PO BID [facility] Last Admin: 12/27/17 13:07 Dose: 200 mg Apixaban (Eliquis) 2.5 mg PO BID [facility] PRN Reason: Protocol Last Admin: 12/27/17 10:18 Dose: 2.5 mg Atorvastatin Calcium (Lipitor) 20 mg PO Th [facility] Last Admin: 12/26/17 22:19 Dose: 20 mg Atorvastatin Calcium (Lipitor) 20 mg PO [facility] Bisacodyl (Dulcolax) 10 mg DE QDAY PRN PRN Reason: constipation unrelieved by MOM Diltiazem HCl (Cardizem) 30 mg PO Q8HR [facility] Last Admin: 12/27/17 13:05 Dose: 30 mg Diphenoxylate HCl/Atropine (Lomotil) 1 tab PO Q6H PRN PRN Reason: Diarrhea Last Admin: 12/24/17 14:54 Dose: 1 tab Furosemide (Lasix) 20 mg PO QDAY [facility] Last Admin: 12/27/17 10:18 Dose: 20 mg Guaifenesin (Mucinex Er) 600 mg PO BID [facility] Last Admin: 12/27/17 10:50 Dose: 600 mg Hydromorphone HCl (Dilaudid) 0.5 mg IV Q3H PRN PRN Reason: Pain , Severe (7-10) Piperacillin Sod/Tazobactam Sod (Zosyn/Ns 4.5gm/100ml) 4.5 gm in 100 mls @ 200 mls/hr IV Q8H [facility] PRN Reason: Protocol Last Admin: 12/27/17 10:19 Dose: 200 mls/hr Amiodarone HCl 900 mg/ (Dextrose) 500 mls @ 33.33 mls/hr IV DIRECT ABHIJIT; 1 MG /MIN PRN Reason: Protocol Lactobacillus Acidophilus (Lactinex) 1 each PO BID [facility] Last Admin: 12/27/17 10:18 Dose: 1 each Levalbuterol HCl (Xopenex) 1.25 mg IH BID [facility] Last Admin: 12/27/17 08:59 Dose: 1.25 mg Levothyroxine Sodium (Synthroid) 50 mcg PO QDAY@0600 [facility] Last Admin: 12/27/17 05:52 Dose: 50 mcg Lisinopril (Zestril) 5 mg PO QDAY [facility] Last Admin: 12/27/17 10:19 Dose: 5 mg Magnesium Hydroxide (Milk Of Magnesia) 30 ml PO Q4H PRN PRN Reason: Constipation Metoprolol Tartrate (Lopressor) 2.5 mg IV Q4HR PRN PRN Reason: HR >130 Last Admin: 12/26/17 10:43 Dose: 2.5 mg Metronidazole (Flagyl) 500 mg PO Q8HR [facility] Last Admin: 12/27/17 05:52 Dose: 500 mg Morphine Sulfate (Morphine) 4 mg IV Q4H PRN PRN Reason: Pain , Severe (7-10) Ondansetron HCl (Zofran) 4 mg IV Q6H PRN PRN Reason: Nausea And Vomiting Last Admin: 12/25/17 00:13 Dose: 4 mg Oxycodone/Acetaminophen (Percocet 5/325) 1 tab PO Q6H PRN PRN Reason: Pain, Moderate (4-6) Last Admin: 12/23/17 22:59 Dose: 1 tab Objective Vital Signs - 12hr 12/27/17 12/27/17 12/27/17 06:00 06:07 08:04 Temperature 98.2 F 98.2 F 98.6 F Pulse Rate 66 55 L 70 Pulse Rate [ Anterior Bilateral Throughout] Respiratory 20 20 20 Rate Respiratory Rate [Anterior Bilateral Throughout] Blood Pressure 139/52 119/42 Blood Pressure 139/57 [Right] O2 Sat by Pulse 89 93 98 Oximetry 12/27/17 12/27/17 12/27/17 08:55 08:59 09:09 Temperature 98.5 F Pulse Rate 75 Pulse Rate [ 72 78 Anterior Bilateral Throughout] Respiratory 20 Rate Respiratory 18 20 Rate [Anterior Bilateral Throughout] Blood Pressure Blood Pressure 119/42 [Right] O2 Sat by Pulse 98 96 Oximetry 12/27/17 12/27/17 12/27/17 10:00 11:39 12:39 Temperature 97.0 F L 97.9 F Pulse Rate 75 58 L 56 L Pulse Rate [ Anterior Bilateral Throughout] Respiratory 22 18 20 Rate Respiratory Rate [Anterior Bilateral Throughout] Blood Pressure 142/53 Blood Pressure 146/53 [Right] O2 Sat by Pulse 96 93 95 Oximetry 12/27/17 13:05 Temperature Pulse Rate 182 H Pulse Rate [ Anterior Bilateral Throughout] Respiratory Rate Respiratory Rate [Anterior Bilateral Throughout] Blood Pressure Blood Pressure [Right] O2 Sat by Pulse Oximetry Constitutional: no acute distress, alert Eyes: non-icteric ENT: oropharynx moist Neck: supple Effort: normal Ascultation: Left: clear, Bilateral: rales (better), rhonchi (better) Percussion: Bilateral: not dull Tactile fremitus: Bilateral: normal Cardiovascular: irregular rhythm (no mrg) Gastrointestinal: normoactive bowel sounds, soft, non-tender Integumentary: normal Extremities: no cyanosis, no edema, pink and warm Neurologic: normal mental status, non-focal exam Psychiatric: mood appropriate, affect normal CBC and BMP: 12/26/17 06:33 12/26/17 06:33 ABG, PT/INR, D-dimer: ABG POC ABG pH 7.487 (7.35-7.45) H 12/18/17 14:30 POC ABG pCO2 32.6 (35-45) L 12/18/17 14:30 POC ABG pO2 65 (80-105) L 12/18/17 14:30 POC ABG HCO3 24.7 12/18/17 14:30 POC ABG Total CO2 26 12/18/17 14:30 POC ABG O2 Sat 94 12/18/17 14:30 PT/INR, D-dimer PT 16.5 Sec. (12.2-14.9) H 12/18/17 12:10 INR 1.26 (0.87-1.13) H 12/18/17 12:10 Abnormal lab findings: Abnormal Labs 12/18/17 12/18/17 12/18/17 12:10 12:10 12:10 WBC 24.0 H RBC RDW 13.0 L Plt Count 460 H Cooper % (Auto) Cooper # Seg Neutrophils % Seg Neuts % (Manual) 84.0 H Lymphocytes % (Manual) 2.0 L Monocytes % (Manual) Seg Neutrophils # Seg Neutrophils # Man 20.2 H Lymphocytes # (Manual) 0.5 L Monocytes # (Manual) 1.4 H PT INR POC ABG pH POC ABG pCO2 POC ABG pO2 VBG pH Sodium Carbon Dioxide BUN 23 H Creatinine 0.6 L Glucose 140 H Lactic Acid 2.20 H* Calcium 8.0 L Magnesium Total Creatine Kinase CK-MB (CK-2) Rel Index NT-Pro-B Natriuret Pep Total Protein 5.8 L Albumin 3.0 L Free T4 12/18/17 12/18/17 12/18/17 12:10 12:10 12:10 WBC RBC RDW Plt Count [place] % (Auto) Cooper # Seg Neutrophils % Seg Neuts % (Manual) Lymphocytes % (Manual) Monocytes % (Manual) Seg Neutrophils # Seg Neutrophils # Man Lymphocytes # (Manual) Monocytes # (Manual) PT 16.5 H INR 1.26 H POC ABG pH POC ABG pCO2 POC ABG pO2 VBG pH Sodium Carbon Dioxide BUN Creatinine Glucose Lactic Acid Calcium Magnesium 1.60 L Total Creatine Kinase 21 L CK-MB (CK-2) Rel Index 9.5 H NT-Pro-B Natriuret Pep 1948 H Total Protein Albumin Free T4 12/18/17 12/18/17 12/19/17 12:10 14:30 04:36 WBC 20.3 H RBC RDW Plt Count [place] % (Auto) [place] # Seg Neutrophils % Seg Neuts % (Manual) 90.0 H Lymphocytes % (Manual) 5.0 L Monocytes % (Manual) Seg Neutrophils # Seg Neutrophils # Man 18.3 H Lymphocytes # (Manual) 1.0 L Monocytes # (Manual) PT INR POC ABG pH 7.487 H POC ABG pCO2 32.6 L POC ABG pO2 65 L VBG pH 7.534 H Sodium Carbon Dioxide BUN Creatinine Glucose Lactic Acid Calcium Magnesium Total Creatine Kinase CK-MB (CK-2) Rel Index NT-Pro-B Natriuret Pep Total Protein Albumin Free T4 12/19/17 12/20/17 12/20/17 04:36 06:23 06:23 WBC 19.3 H RBC RDW 13.1 L Plt Count [place] % (Auto) [place] # Seg Neutrophils % Seg Neuts % (Manual) 96.0 H Lymphocytes % (Manual) 2.0 L Monocytes % (Manual) Seg Neutrophils # Seg Neutrophils # Man 18.5 H Lymphocytes # (Manual) 0.4 L Monocytes # (Manual) PT INR POC ABG pH POC ABG pCO2 POC ABG pO2 VBG pH Sodium Carbon Dioxide BUN 24 H Creatinine Glucose 146 H Lactic Acid Calcium 7.8 L 7.9 L Magnesium Total Creatine Kinase CK-MB (CK-2) Rel Index NT-Pro-B Natriuret Pep Total Protein 6.2 L Albumin 2.4 L Free T4 12/20/17 12/21/17 12/24/17 06:23 05:04 06:05 WBC 20.5 H 14.5 H RBC 3.57 L RDW 12.8 L 12.9 L Plt Count [place] % (Auto) 7.8 H Cooper # 1.1 H Seg Neutrophils % 75.4 H Seg Neuts % (Manual) Lymphocytes % (Manual) 12.0 L Monocytes % (Manual) 15.0 H Seg Neutrophils # 11.0 H Seg Neutrophils # Man 13.5 H Lymphocytes # (Manual) Monocytes # (Manual) 3.1 H PT INR POC ABG pH POC ABG pCO2 POC ABG pO2 VBG pH Sodium Carbon Dioxide BUN Creatinine Glucose Lactic Acid Calcium Magnesium Total Creatine Kinase CK-MB (CK-2) Rel Index NT-Pro-B Natriuret Pep Total Protein Albumin Free T4 1.66 H 12/24/17 12/26/17 12/26/17 06:05 06:33 06:33 WBC 12.9 H RBC 3.63 L RDW Plt Count [place] % (Auto) 7.8 H Cooper # 1.0 H Seg Neutrophils % 75.7 H Seg Neuts % (Manual) Lymphocytes % (Manual) Monocytes % (Manual) Seg Neutrophils # 9.8 H Seg Neutrophils # Man Lymphocytes # (Manual) Monocytes # (Manual) PT INR POC ABG pH POC ABG pCO2 POC ABG pO2 VBG pH Sodium 146 H Carbon Dioxide 32 H D BUN Creatinine 0.6 L Glucose Lactic Acid Calcium 7.6 L 7.8 L Magnesium Total Creatine Kinase CK-MB (CK-2) Rel Index NT-Pro-B Natriuret Pep Total Protein Albumin Free T4 Chest x-ray: report reviewed, image reviewed
--- NOTE | 2017-12-27 18:29 | Event Note ---
Date: 12/27/17 Patient went into paroxysmal A. fib with rapid ventricular rate with heart rate in 180s Cardiology started amiodarone for rhythm control, closely monitor will plan discharge when patient is stable, plan of care discussed with the family
[2017-12-28] MEDS: ZOSYN/NS 4.5GM/100ML 4.5 GM/100 ML VIAL IV SCH ×3 (03:00→18:17)
[2017-12-28] MEDS: SYNTHROID PO SCH (05:10)
[2017-12-28] MEDS: CARDIZEM PO SCH ×3 (05:10→23:24)
[2017-12-28] MEDS: FLAGYL PO SCH ×3 (05:11→23:20)
[2017-12-28 06:55] LABS: Basophils # (Auto) 0.1 K/mm3 (0.0-0.1); Basophils % (Auto) 0.5 % (0.0-1.8); Eosinophils # (Auto) 0.1 K/mm3 (0.0-0.4); Eosinophils % (Auto) 1.2 % (0.0-4.3); Hematocrit 34.2 % (30.3-42.9); Hemoglobin 11.3 gm/dl (10.1-14.3); Lymphocytes # (Auto) 2.6 K/mm3 (1.2-5.4); Lymphocytes % (Auto) 22.2 % (13.4-35.0); Mean Corpuscular HGB Conc 33 % (30-34); Mean Corpuscular Hemoglobin 30 pg (28-32); Mean Corpuscular Volume 90 fl (79-97); Monocytes # (Auto) 1.2 K/mm3 (0.0-0.8); Monocytes % (Auto) 9.8 % (0.0-7.3); Platelet Count 422 K/mm3 (140-440)
[2017-12-28 07:10] LABS: BUN/Creatinine Ratio 10; Blood Urea Nitrogen 8 mg/dL (7-17); Hemolysis Index 5
[2017-12-28] MEDS: XOPENEX IH SCH ×2 (09:13→20:48)
[2017-12-28] MEDS: MUCOMYST INHALATION INHALATION SCH ×2 (09:13→20:48)
--- NOTE | 2017-12-28 10:53 | Progress Note ---
Assessment and Plan - Patient Problems (1) Hypokalemia Current Visit: Yes Status: Acute (2) Paroxysmal atrial fibrillation Current Visit: Yes Status: Acute (3) Pneumonia Current Visit: Yes Status: Acute Qualifiers: Pneumonia type: due to unspecified organism Laterality: bilateral Lung location: lower lobe of lung Qualified Code(s): J18.9 - Pneumonia, unspecified organism Subjective Date of service: 12/28/17 Principal diagnosis: Pneumonia Interval history: SLEEPING,,,SOB IMPROVED PER FAMILY Objective Vital Signs Temp Pulse Resp BP BP Pulse Ox 12/28/17 07:55 97.9 F 78 18 127/44 99 12/28/17 04:01 98.4 F 70 24 127/42 98 12/27/17 23:38 98.4 F 64 28 H 140/41 92 12/27/17 22:00 82 12/27/17 20:29 97 12/27/17 20:01 97.9 F 52 L 36 H 137/36 96 12/27/17 16:21 89 100 12/27/17 16:15 97.9 F 58 L 20 122/47 97 12/27/17 13:05 182 H 12/27/17 12:39 97.9 F 56 L 20 146/53 95 12/27/17 11:39 97.0 F L 58 L 18 142/53 93 - Physical Examination General: No Apparent Distress HEENT: Positive: Pallor Neck: Positive: neck supple Cardiac: Positive: Irregularly Regular Lungs: Positive: clear to auscultation Neuro: Positive: Weakness Abdomen: Positive: Soft Skin: Positive: Clear Extremities: Absent: edema - Labs and Meds CBC 12/28/17 Range/Units 05:59 WBC 11.9 H (4.5-11.0) K/mm3 RBC 3.80 (3.65-5.03) M/mm3 Hgb 11.3 (10.1-14.3) gm/dl Hct 34.2 (30.3-42.9) % Plt Count 422 (140-440) K/mm3 Lymph # 2.6 (1.2-5.4) K/mm3 [place] # 1.2 H (0.0-0.8) K/mm3 Eos # 0.1 (0.0-0.4) K/mm3 Baso # 0.1 (0.0-0.1) K/mm3 Comprehensive Metabolic Panel 12/28/17 Range/Units 05:59 Sodium 140 (137-145) mmol/L Potassium 3.2 L (3.6-5.0) mmol/L Chloride 98.1 (98-107) mmol/L Carbon Dioxide 31 H (22-30) mmol/L BUN 8 (7-17) mg/dL Creatinine 0.8 (0.7-1.2) mg/dL Glucose 99 (65-100) mg/dL Calcium 8.0 L (8.4-10.2) mg/dL
[2017-12-28] MEDS ORDERED: NACL 0.9% 1000 ML 1,000 ML ONE (10:57)
[2017-12-28] MEDS: CORDARONE PO SCH ×2 (11:05→23:19)
[2017-12-28] MEDS: ELIQUIS PO SCH ×2 (11:05→23:21)
[2017-12-28] MEDS: LACTINEX PO SCH ×2 (11:06→23:19)
[2017-12-28] MEDS: MUCINEX ER PO SCH ×2 (11:06→23:20)
[2017-12-28] MEDS: NACL 0.9% 1000 ML 1,000 ML IV SCH ×2 (11:07→23:34)
--- NOTE | 2017-12-28 11:11 | Progress Note ---
Assessment and Plan Assessment and plan: --Marielena tobias with rapid ventricular rate; now rate controlled, on Cardizem, beta blockers, Eliquis, Cardiology Following --Right lower lobe pneumonia; continue current antibiotics, follow cultures She has history of bronchiectasis , CT chest findings reviewed --Acute hypoxic respiratory failure; continue oxygen nebulizer sinusitis to traverse IV antibiotics Pulmonary following --Dyslipidemia; continue lipid lowering medications --History of hypothyroidism; stable on Synthroid --Hypertension; moderate control, continue current antihypertensives and when necessary medications --Diarrhea; improved, C. difficile negative, supportive care --Full code status. --General debility; patient is very weak and frail Continue supportive care Patient's condition treatment plan discussed in detail with the family members at the bedside CODE STATUS discussed, full code DC planning; recommend subacute versus SNF versus home with home health versus home hospice. The family wanted to discuss with case management different options Disposition; patient may be discharged when stable. History Interval history: Patient seen and examined medical records reviewed Sleeping easily awakens Heart rate within normal range, feels very tired and weak Last chest pain or shortness of breath Vital signs reviewed Family members at the bedside Hospitalist Physical - Constitutional Vitals: Temp Pulse Resp BP Pulse Ox 97.9 F 78 18 127/44 99 12/28/17 07:55 12/28/17 07:55 12/28/17 07:55 12/28/17 07:55 12/28/17 07:55 General appearance: Present: no acute distress, cachectic, other (looks tired) - EENT Eyes: Present: PERRL, EOM intact - Neck Neck: Present: supple, normal ROM - Respiratory Respiratory effort: normal Respiratory: bilateral: diminished, negative: rales, rhonchi, wheezing - Cardiovascular Rhythm: regular Heart Sounds: Present: S1 & S2 - Extremities Extremities: no ischemia, No edema - Abdominal General gastrointestinal: soft, non-tender, non-distended, normal bowel sounds - Integumentary Integumentary: Present: clear, warm - Psychiatric Psychiatric: appropriate mood/affect, cooperative - Neurologic Neurologic: CNII-XII intact, moves all extremities Results - Labs CBC & Chem 7: 12/28/17 05:59 12/28/17 05:59 Labs: Laboratory Last Values WBC 11.9 K/mm3 (4.5-11.0) H 12/28/17 05:59 RBC 3.80 M/mm3 (3.65-5.03) 12/28/17 05:59 Hgb 11.3 gm/dl (10.1-14.3) 12/28/17 05:59 Hct 34.2 % (30.3-42.9) 12/28/17 05:59 MCV 90 fl (79-97) 12/28/17 05:59 MCH 30 pg (28-32) 12/28/17 05:59 MCHC 33 % (30-34) 12/28/17 05:59 RDW 13.0 % (13.2-15.2) L 12/28/17 05:59 Plt Count 422 K/mm3 (140-440) 12/28/17 05:59 Lymph % (Auto) 22.2 % (13.4-35.0) 12/28/17 05:59 [place] % (Auto) 9.8 % (0.0-7.3) H 12/28/17 05:59 Eos % (Auto) 1.2 % (0.0-4.3) 12/28/17 05:59 Baso % (Auto) 0.5 % (0.0-1.8) 12/28/17 05:59 Lymph # 2.6 K/mm3 (1.2-5.4) 12/28/17 05:59 [place] # 1.2 K/mm3 (0.0-0.8) H 12/28/17 05:59 Eos # 0.1 K/mm3 (0.0-0.4) 12/28/17 05:59 Baso # 0.1 K/mm3 (0.0-0.1) 12/28/17 05:59 Add Manual Diff Complete 12/26/17 06:33 Total Counted 100 12/21/17 05:04 Seg Neutrophils % 66.3 % (40.0-70.0) 12/28/17 05:59 Seg Neuts % (Manual) 66.0 % (40.0-70.0) 12/21/17 05:04 Band Neutrophils % 6.0 % 12/21/17 05:04 Lymphocytes % (Manual) 12.0 % (13.4-35.0) L 12/21/17 05:04 Reactive Lymphs % (Man) 0 % 02/17/18 05:04 Monocytes % (Manual) 15.0 % (0.0-7.3) H 12/21/17 05:04 Eosinophils % (Manual) 0 % (0.0-4.3) 12/21/17 05:04 Basophils % (Manual) 0 % (0.0-1.8) 12/20/17 06:23 Metamyelocytes % 1.0 % 12/21/17 05:04 Myelocytes % 0 % 12/21/17 05:04 Promyelocytes % 0 % 12/21/17 05:04 Blast Cells % 0 % 12/21/17 05:04 Nucleated RBC % Not Reportable 12/21/17 05:04 Seg Neutrophils # 7.9 K/mm3 (1.8-7.7) H 12/28/17 05:59 Seg Neutrophils # Man 13.5 K/mm3 (1.8-7.7) H 12/21/17 05:04 Band Neutrophils # 1.2 K/mm3 12/21/17 05:04 Lymphocytes # (Manual) 2.5 K/mm3 (1.2-5.4) 12/21/17 05:04 Abs React Lymphs (Man) 0.0 K/mm3 12/21/17 05:04 Monocytes # (Manual) 3.1 K/mm3 (0.0-0.8) H 12/21/17 05:04 Eosinophils # (Manual) 0.0 K/mm3 (0.0-0.4) 12/21/17 05:04 Basophils # (Manual) 0.0 K/mm3 (0.0-0.1) 12/21/17 05:04 Metamyelocytes # 0.2 K/mm3 12/21/17 05:04 Myelocytes # 0.0 K/mm3 12/21/17 05:04 Promyelocytes # 0.0 K/mm3 12/21/17 05:04 Blast Cells # 0.0 K/mm3 12/21/17 05:04 WBC Morphology Not Reportable 12/21/17 05:04 Hypersegmented Neuts Not Reportable 12/21/17 05:04 Hyposegmented Neuts Not Reportable 12/21/17 05:04 Hypogranular Neuts Not Reportable 12/21/17 05:04 Smudge Cells Not Reportable 12/21/17 05:04 Toxic Granulation Not Reportable 12/21/17 05:04 Toxic Vacuolation Not Reportable 12/21/17 05:04 Dohle Bodies Not Reportable 12/21/17 05:04 Pelger-Huet Anomaly Not Reportable 12/21/17 05:04 Andrei Rods Not Reportable 12/21/17 05:04 Platelet Estimate Appears normal 12/21/17 05:04 Clumped Platelets Not Reportable 12/21/17 05:04 Plt Clumps, EDTA Not Reportable 12/21/17 05:04 Large Platelets Not Reportable 12/21/17 05:04 Giant Platelets Not Reportable 12/21/17 05:04 Platelet Satelliting Not Reportable 12/21/17 05:04 Plt Morphology Comment Not Reportable 12/21/17 05:04 RBC Morphology Not Reportable 12/21/17 05:04 Dimorphic RBCs Not Reportable 12/21/17 05:04 Polychromasia Not Reportable 12/21/17 05:04 Hypochromasia Not Reportable 12/21/17 05:04 Poikilocytosis Not Reportable 12/21/17 05:04 Anisocytosis Not Reportable 12/21/17 05:04 Microcytosis Not Reportable 12/21/17 05:04 Macrocytosis Not Reportable 12/21/17 05:04 Spherocytes Not Reportable 12/21/17 05:04 Pappenheimer Bodies Not Reportable 12/21/17 05:04 Sickle Cells Not Reportable 12/21/17 05:04 Target Cells Not Reportable 12/21/17 05:04 Tear Drop Cells Not Reportable 12/21/17 05:04 Ovalocytes Not Reportable 12/21/17 05:04 Helmet Cells Not Reportable 12/21/17 05:04 [place] Bodies Not Reportable 12/21/17 05:04 Michie Rings Not Reportable 12/21/17 05:04 [place] Cells Not Reportable 12/21/17 05:04 Bite Cells Not Reportable 12/21/17 05:04 Crenated Cell Not Reportable 12/21/17 05:04 Elliptocytes Not Reportable 12/21/17 05:04 Acanthocytes (Spur) Not Reportable 12/21/17 05:04 Rouleaux Not Reportable 12/21/17 05:04 Hemoglobin C Crystals Not Reportable 12/21/17 05:04 Schistocytes Not Reportable 12/21/17 05:04 Malaria parasites Not Reportable 12/21/17 05:04 Chriss Bodies Not Reportable 12/21/17 05:04 Hem Pathologist Commnt No 12/21/17 05:04 PT 16.5 Sec. (12.2-14.9) H 12/18/17 12:10 INR 1.26 (0.87-1.13) H 12/18/17 12:10 POC ABG pH 7.487 (7.35-7.45) H 12/18/17 14:30 POC ABG pCO2 32.6 (35-45) L 12/18/17 14:30 POC ABG pO2 65 (80-105) L 12/18/17 14:30 POC ABG HCO3 24.7 12/18/17 14:30 POC ABG Total CO2 26 12/18/17 14:30 POC ABG O2 Sat 94 12/18/17 14:30 POC ABG Base Excess 1 12/18/17 14:30 VBG pH 7.534 (7.320-7.420) H 12/18/17 12:10 FiO2 28 % 12/18/17 14:30 Sodium 140 mmol/L (137-145) 12/28/17 05:59 Potassium 3.2 mmol/L (3.6-5.0) L 12/28/17 05:59 Chloride 98.1 mmol/L (98-107) 12/28/17 05:59 Carbon Dioxide 31 mmol/L (22-30) H 12/28/17 05:59 Anion Gap 14 mmol/L 12/28/17 05:59 BUN 8 mg/dL (7-17) 12/28/17 05:59 Creatinine 0.8 mg/dL (0.7-1.2) 12/28/17 05:59 Estimated GFR > 60 ml/min 12/28/17 05:59 BUN/Creatinine Ratio 10 % 12/28/17 05:59 Glucose 99 mg/dL (65-100) 12/28/17 05:59 Lactic Acid 1.00 mmol/L (0.7-2.0) 12/19/17 04:36 Calcium 8.0 mg/dL (8.4-10.2) L 12/28/17 05:59 Magnesium 1.90 mg/dL (1.7-2.3) 12/28/17 05:59 Total Bilirubin 0.50 mg/dL (0.1-1.2) 12/19/17 04:36 Direct Bilirubin 0.2 mg/dL (0-0.2) 12/18/17 12:10 Indirect Bilirubin 0.3 mg/dL 12/18/17 12:10 AST 18 units/L (5-40) 12/19/17 04:36 ALT 18 units/L (7-56) 12/19/17 04:36 Alkaline Phosphatase 72 units/L (35-129) 12/19/17 04:36 Total Creatine Kinase 21 units/L (30-135) L 12/18/17 12:10 CK-MB (CK-2) 2.0 ng/mL (0.0-4.0) 12/18/17 12:10 CK-MB (CK-2) Rel Index 9.5 (0-4) H 12/18/17 12:10 Troponin T < 0.010 ng/mL (0.00-0.029) 12/18/17 12:10 NT-Pro-B Natriuret Pep 1948 pg/mL (0-900) H 12/18/17 12:10 Total Protein 6.2 g/dL (6.3-8.2) L 12/19/17 04:36 Albumin 2.4 g/dL (3.9-5) L 12/19/17 04:36 Albumin/Globulin Ratio 0.6 % 12/19/17 04:36 TSH 0.311 mlU/mL (0.270-4.200) 12/20/17 06:23 Free T4 1.66 ng/dL (0.76-1.46) H 12/20/17 06:23 Urine Color Yellow (Yellow) 12/18/17 18:35 Urine Turbidity Clear (Clear) 12/18/17 18:35 Urine pH 5.0 (5.0-7.0) 12/18/17 18:35 Ur Specific [place] 1.021 (1.003-1.030) 12/18/17 18:35 Urine Protein 30 mg/dl mg/dL (Negative) 12/18/17 18:35 Urine Glucose (UA) Neg mg/dL (Negative) 12/18/17 18:35 Urine Ketones Tr mg/dL (Negative) 12/18/17 18:35 Urine Blood Neg (Negative) 12/18/17 18:35 Urine Nitrite Neg (Negative) 12/18/17 18:35 Urine Bilirubin Neg (Negative) 12/18/17 18:35 Urine Urobilinogen < 2.0 mg/dL (<2.0) 12/18/17 18:35 Ur Leukocyte Esterase Neg (Negative) 12/18/17 18:35 Urine WBC (Auto) 2.0 /HPF (0.0-6.0) 12/18/17 18:35 Urine RBC (Auto) 5.0 /HPF (0.0-6.0) 12/18/17 18:35 U Epithel Cells (Auto) < 1.0 /HPF (0-13.0) 12/18/17 18:35 Urine Mucus Few /HPF 12/18/17 18:35 C. difficile Toxin A&B Negative (Negative) 12/23/17 11:40 Blood Type O POSITIVE 12/18/17 12:10 Antibody Screen Negative 12/18/17 12:10
[2017-12-28] MEDS ORDERED: K-DUR PO ONE (12:00)
--- NOTE | 2017-12-28 16:14 | Progress Note ---
Assessment and Plan Imp: 1. Bronchiectasis on 2010 CT chest (reviewed [facility] images), RML and lingula 2. Pneumonia in setting of #1, doubt aspiration 3. Mild oral dysphagia 4. Acute respiratory failure, hypoxia 5. Mitral stenosis 6. Mild pulm HTN 7. Afib w/ RVR Rec: 1. Cont. Zosyn x ~ 10 days total; sputum culture negative 2. In light of #1 above, added flutter valve BID (d/w RT), Mucinex BID, and mucomyst nebs + Xopenex BID (if continued issues with AFib/RVR despite amiodarone will have to stop the TARI) 3. ST evaluation reviewed and appreciated -> follow recs at home 4. PT/OOB/ambulate 5. Lactinex re: diarrhea 6. Will go ahead and obtain CT chest 7. Afib as per cards Plan of care reviewed with patient/family, they understand/agree Subjective Date of service: 12/28/17 Principal diagnosis: Pneumonia Interval history: No events. No Afib/RVR today after Xopenex. SOB is better than yesterday. Cough/ sputum much improved. Active Medications Acetylcysteine (Mucomyst Inhalation) 200 mg INHALATION Q12HRT [facility] Last Admin: 12/28/17 09:13 Dose: 200 mg Al Hydrox/Mg Hydrox/Simethicone (Alum-Mag Hydrox-Simeth [phone]/5ml) 30 ml PO Q4H PRN PRN Reason: Indigestion Alprazolam (Xanax) 0.25 mg PO Q8H PRN PRN Reason: Anxiety Amiodarone HCl (Cordarone) 200 mg PO BID [facility] Last Admin: 12/28/17 11:05 Dose: 200 mg Apixaban (Eliquis) 2.5 mg PO BID [facility] PRN Reason: Protocol Last Admin: 12/28/17 11:05 Dose: 2.5 mg Atorvastatin Calcium (Lipitor) 20 mg PO [facility] Last Admin: 12/26/17 22:19 Dose: 20 mg Atorvastatin Calcium (Lipitor) 20 mg PO [facility] Bisacodyl (Dulcolax) 10 mg ID QDAY PRN PRN Reason: constipation unrelieved by MOM Diltiazem HCl (Cardizem) 30 mg PO Q8HR [facility] Last Admin: 12/28/17 05:10 Dose: 30 mg Diphenoxylate HCl/Atropine (Lomotil) 1 tab PO Q6H PRN PRN Reason: Diarrhea Last Admin: 12/24/17 14:54 Dose: 1 tab Guaifenesin (Mucinex Er) 600 mg PO BID [facility] Last Admin: 12/28/17 11:06 Dose: 600 mg Hydromorphone HCl (Dilaudid) 0.5 mg IV Q3H PRN PRN Reason: Pain , Severe (7-10) Piperacillin Sod/Tazobactam Sod (Zosyn/Ns 4.5gm/100ml) 4.5 gm in 100 mls @ 200 mls/hr IV Q8H [facility] PRN Reason: Protocol Last Admin: 12/28/17 11:06 Dose: 200 mls/hr Sodium Chloride (Nacl 0.9% 1000 Ml) 1,000 mls @ 70 mls/hr IV DIRECT [facility] Last Admin: 12/28/17 11:07 Dose: 70 mls/hr Lactobacillus Acidophilus (Lactinex) 1 each PO BID [facility] Last Admin: 12/28/17 11:06 Dose: 1 each Levalbuterol HCl (Xopenex) 1.25 mg IH BIDRT [facility] Last Admin: 12/28/17 09:13 Dose: 1.25 mg Levothyroxine Sodium (Synthroid) 50 mcg PO QDAY@0600 [facility] Last Admin: 12/28/17 05:10 Dose: 50 mcg Magnesium Hydroxide (Milk Of Magnesia) 30 ml PO Q4H PRN PRN Reason: Constipation Metoprolol Tartrate (Lopressor) 2.5 mg IV Q4HR PRN PRN Reason: HR >130 Last Admin: 12/26/17 10:43 Dose: 2.5 mg Metronidazole (Flagyl) 500 mg PO Q8HR [facility] Last Admin: 12/28/17 05:11 Dose: 500 mg Morphine Sulfate (Morphine) 4 mg IV Q4H PRN PRN Reason: Pain , Severe (7-10) Ondansetron HCl (Zofran) 4 mg IV Q6H PRN PRN Reason: Nausea And Vomiting Last Admin: 12/25/17 00:13 Dose: 4 mg Oxycodone/Acetaminophen (Percocet 5/325) 1 tab PO Q6H PRN PRN Reason: Pain, Moderate (4-6) Last Admin: 12/23/17 22:59 Dose: 1 tab Objective Vital Signs - 12hr 12/28/17 12/28/17 12/28/17 07:55 09:13 09:23 Temperature 97.9 F Pulse Rate 78 Pulse Rate [ 77 68 Anterior Bilateral Throughout] Pulse Rate [ Apical] Respiratory 18 Rate Respiratory 20 20 Rate [Anterior Bilateral Throughout] Blood Pressure 127/44 O2 Sat by Pulse 99 Oximetry 12/28/17 12/28/17 10:00 12:18 Temperature 98.2 F Pulse Rate 78 93 H Pulse Rate [ Anterior Bilateral Throughout] Pulse Rate [ 78 Apical] Respiratory 22 20 Rate Respiratory Rate [Anterior Bilateral Throughout] Blood Pressure 145/39 O2 Sat by Pulse 99 99 Oximetry Constitutional: no acute distress, asleep Eyes: non-icteric ENT: oropharynx moist Neck: supple Effort: normal Ascultation: Bilateral: rales (better), rhonchi (better) Cardiovascular: irregular rhythm (no mrg) Gastrointestinal: normoactive bowel sounds, soft, non-tender Integumentary: normal Extremities: no cyanosis, no edema, pink and warm Neurologic: normal mental status, non-focal exam Psychiatric: mood appropriate, affect normal CBC and BMP: 12/28/17 05:59 12/28/17 05:59 ABG, PT/INR, D-dimer: ABG POC ABG pH 7.487 (7.35-7.45) H 12/18/17 14:30 POC ABG pCO2 32.6 (35-45) L 12/18/17 14:30 POC ABG pO2 65 (80-105) L 12/18/17 14:30 POC ABG HCO3 24.7 12/18/17 14:30 POC ABG Total CO2 26 12/18/17 14:30 POC ABG O2 Sat 94 12/18/17 14:30 PT/INR, D-dimer PT 16.5 Sec. (12.2-14.9) H 12/18/17 12:10 INR 1.26 (0.87-1.13) H 12/18/17 12:10 Abnormal lab findings: Abnormal Labs 12/18/17 12/18/17 12/18/17 12:10 12:10 12:10 WBC 24.0 H RBC RDW 13.0 L Plt Count 460 H [place] % (Auto) [place] # Seg Neutrophils % Seg Neuts % (Manual) 84.0 H Lymphocytes % (Manual) 2.0 L Monocytes % (Manual) Seg Neutrophils # Seg Neutrophils # Man 20.2 H Lymphocytes # (Manual) 0.5 L Monocytes # (Manual) 1.4 H PT INR POC ABG pH POC ABG pCO2 POC ABG pO2 VBG pH Sodium Potassium Carbon Dioxide BUN 23 H Creatinine 0.6 L Glucose 140 H Lactic Acid 2.20 H* Calcium 8.0 L Magnesium Total Creatine Kinase CK-MB (CK-2) Rel Index NT-Pro-B Natriuret Pep Total Protein 5.8 L Albumin 3.0 L Free T4 12/18/17 12/18/17 12/18/17 12:10 12:10 12:10 WBC RBC RDW Plt Count [place] % (Auto) [place] # Seg Neutrophils % Seg Neuts % (Manual) Lymphocytes % (Manual) Monocytes % (Manual) Seg Neutrophils # Seg Neutrophils # Man Lymphocytes # (Manual) Monocytes # (Manual) PT 16.5 H INR 1.26 H POC ABG pH POC ABG pCO2 POC ABG pO2 VBG pH Sodium Potassium Carbon Dioxide BUN Creatinine Glucose Lactic Acid Calcium Magnesium 1.60 L Total Creatine Kinase 21 L CK-MB (CK-2) Rel Index 9.5 H NT-Pro-B Natriuret Pep 1948 H Total Protein Albumin Free T4 12/18/17 12/18/17 12/19/17 12:10 14:30 04:36 WBC 20.3 H RBC RDW Plt Count [place] % (Auto) [place] # Seg Neutrophils % Seg Neuts % (Manual) 90.0 H Lymphocytes % (Manual) 5.0 L Monocytes % (Manual) Seg Neutrophils # Seg Neutrophils # Man 18.3 H Lymphocytes # (Manual) 1.0 L Monocytes # (Manual) PT INR POC ABG pH 7.487 H POC ABG pCO2 32.6 L POC ABG pO2 65 L VBG pH 7.534 H Sodium Potassium Carbon Dioxide BUN Creatinine Glucose Lactic Acid Calcium Magnesium Total Creatine Kinase CK-MB (CK-2) Rel Index NT-Pro-B Natriuret Pep Total Protein Albumin Free T4 12/19/17 12/20/17 12/20/17 04:36 06:23 06:23 WBC 19.3 H RBC RDW 13.1 L Plt Count [place] % (Auto) [place] # Seg Neutrophils % Seg Neuts % (Manual) 96.0 H Lymphocytes % (Manual) 2.0 L Monocytes % (Manual) Seg Neutrophils # Seg Neutrophils # Man 18.5 H Lymphocytes # (Manual) 0.4 L Monocytes # (Manual) PT INR POC ABG pH POC ABG pCO2 POC ABG pO2 VBG pH Sodium Potassium Carbon Dioxide BUN 24 H Creatinine Glucose 146 H Lactic Acid Calcium 7.8 L 7.9 L Magnesium Total Creatine Kinase CK-MB (CK-2) Rel Index NT-Pro-B Natriuret Pep Total Protein 6.2 L Albumin 2.4 L Free T4 12/20/17 12/21/17 12/24/17 06:23 05:04 06:05 WBC 20.5 H 14.5 H RBC 3.57 L RDW 12.8 L 12.9 L Plt Count [place] % (Auto) 7.8 H [place] # 1.1 H Seg Neutrophils % 75.4 H Seg Neuts % (Manual) Lymphocytes % (Manual) 12.0 L Monocytes % (Manual) 15.0 H Seg Neutrophils # 11.0 H Seg Neutrophils # Man 13.5 H Lymphocytes # (Manual) Monocytes # (Manual) 3.1 H PT INR POC ABG pH POC ABG pCO2 POC ABG pO2 VBG pH Sodium Potassium Carbon Dioxide BUN Creatinine Glucose Lactic Acid Calcium Magnesium Total Creatine Kinase CK-MB (CK-2) Rel Index NT-Pro-B Natriuret Pep Total Protein Albumin Free T4 1.66 H 12/24/17 12/26/17 12/26/17 06:05 06:33 06:33 WBC 12.9 H RBC 3.63 L RDW Plt Count [place] % (Auto) 7.8 H [place] # 1.0 H Seg Neutrophils % 75.7 H Seg Neuts % (Manual) Lymphocytes % (Manual) Monocytes % (Manual) Seg Neutrophils # 9.8 H Seg Neutrophils # Man Lymphocytes # (Manual) Monocytes # (Manual) PT INR POC ABG pH POC ABG pCO2 POC ABG pO2 VBG pH Sodium 146 H Potassium Carbon Dioxide 32 H D BUN Creatinine 0.6 L Glucose Lactic Acid Calcium 7.6 L 7.8 L Magnesium Total Creatine Kinase CK-MB (CK-2) Rel Index NT-Pro-B Natriuret Pep Total Protein Albumin Free T4 12/28/17 12/28/17 05:59 05:59 WBC 11.9 H RBC RDW 13.0 L Plt Count [place] % (Auto) 9.8 H [place] # 1.2 H Seg Neutrophils % Seg Neuts % (Manual) Lymphocytes % (Manual) Monocytes % (Manual) Seg Neutrophils # 7.9 H Seg Neutrophils # Man Lymphocytes # (Manual) Monocytes # (Manual) PT INR POC ABG pH POC ABG pCO2 POC ABG pO2 VBG pH Sodium Potassium 3.2 L Carbon Dioxide 31 H BUN Creatinine Glucose Lactic Acid Calcium 8.0 L Magnesium Total Creatine Kinase CK-MB (CK-2) Rel Index NT-Pro-B Natriuret Pep Total Protein Albumin Free T4 Chest x-ray: report reviewed, image reviewed
--- NOTE | 2017-12-28 19:40 | Cat Scan Report ---
FINAL REPORT EXAM: CT CHEST WO CON HISTORY: Recurrent pneumonia, cough, bronchiectasis TECHNIQUE: CT of the chest without contrast PRIORS: None. FINDINGS: Few small nonenlarged mediastinal lymph nodes are noted. Heart is prominent size with left atrial prominence. There is bilateral bronchiectasis. Within the lingula and right middle lobe there is a more consolidated appearance with bronchiectasis and coarse linear opacities and along with volume loss. Reticular nodular interstitial changes are noted at the right upper lobe along with areas of patchy ground-glass opacity. There are small layering bilateral pleural effusions. There is consolidated appearance within the posterior lower lobes bilaterally along with bronchiectatic changes. Nonenhanced images visualized portion of the upper abdomen is unremarkable. IMPRESSION: Bilateral bronchiectasis with reticular nodular changes. More fibrotic appearing changes within the right middle lobe and lingula with honeycombing and volume loss Consolidated appearance within the posterior right lower lobes superimposed pneumonia cannot be excluded Small bilateral layering pleural effusions
[2017-12-29] MEDS: ZOSYN/NS 4.5GM/100ML 4.5 GM/100 ML VIAL IV SCH ×3 (03:48→18:03)
[2017-12-29 06:39] LABS: Basophils # (Auto) 0.1 K/mm3 (0.0-0.1); Basophils % (Auto) 0.5 % (0.0-1.8); Eosinophils # (Auto) 0.1 K/mm3 (0.0-0.4); Eosinophils % (Auto) 1.5 % (0.0-4.3); Hematocrit 31.5 % (30.3-42.9); Hemoglobin 10.6 gm/dl (10.1-14.3); Lymphocytes # (Auto) 1.6 K/mm3 (1.2-5.4); Lymphocytes % (Auto) 16.1 % (13.4-35.0); Mean Corpuscular HGB Conc 34 % (30-34); Mean Corpuscular Hemoglobin 31 pg (28-32); Mean Corpuscular Volume 91 fl (79-97); Monocytes # (Auto) 0.9 K/mm3 (0.0-0.8); Monocytes % (Auto) 9.3 % (0.0-7.3); Platelet Count 407 K/mm3 (140-440); Red Blood Count 3.46 M/mm3 (3.65-5.03); Red Cell Distribution Width 13.3 % (13.2-15.2)
[2017-12-29] MEDS: CARDIZEM PO SCH ×3 (06:44→21:53)
[2017-12-29] MEDS: SYNTHROID PO SCH (06:44)
[2017-12-29] MEDS: FLAGYL PO SCH ×3 (06:44→21:55)
[2017-12-29 06:56] LABS: BUN/Creatinine Ratio 9; Blood Urea Nitrogen 6 mg/dL (7-17); Calcium 7.7 mg/dL (8.4-10.2); Hemolysis Index 2
--- NOTE | 2017-12-29 09:15 | Progress Note ---
Assessment and Plan Assessment and plan: --A. fib with rapid ventricular rate; now rate controlled, on Cardizem, beta blockers, Eliquis, Cardiology Following Per Pulmonary - added flutter valve BID (d/w RT), Mucinex BID, and mucomyst nebs + Xopenex BID (if continued issues with AFib/RVR despite amiodarone will have to stop the TARI) --Right lower lobe pneumonia; continue current antibiotics, follow cultures She has history of bronchiectasis , CT chest findings reviewed --Acute hypoxic respiratory failure; continue oxygen nebulizer sinusitis to traverse IV antibiotics . Bronchiectasis on 2010 Pulmonary following --Dyslipidemia; continue lipid lowering medications --History of hypothyroidism; stable on Synthroid --Hypertension; moderate control, continue current antihypertensives and when necessary medications --Diarrhea; improved, C. difficile negative, supportive care --Mitral stenosis --Hyperthyroidism Free T4 elevated. will decrease Synthroid 37mcg --Full code status. --General debility; patient is very weak and frail Continue supportive care Patient's condition treatment plan discussed in detail with the family members at the bedside CODE STATUS discussed, full code DC planning; recommend subacute versus SNF versus home with home health versus home hospice. SPOKE TO FAMILY IN DETAIL THEY NOW WANT HOSPICE Disposition; patient may be discharged when stable. placement issues. History Interval history: Patient seen and examined today, remains very lathergic, some shortness of breath. Family at bedside Hospitalist Physical - Physical exam Narrative exam: General appearance: Present: no acute distress, cachectic, other (frail) - EENT Eyes: Present: PERRL, EOM intact - Neck Neck: Present: supple, normal ROM - Respiratory Respiratory effort: normal Respiratory: bilateral: diminished, negative: rales, rhonchi, wheezing - Cardiovascular Rhythm: regular Heart Sounds: Present: S1 & S2 - Extremities Extremities: no ischemia, No edema - Abdominal General gastrointestinal: soft, non-tender, non-distended, normal bowel sounds - Integumentary Integumentary: Present: clear, warm - Psychiatric Psychiatric: appropriate mood/affect, cooperative - Neurologic Neurologic: CNII-XII intact, moves all extremities - Constitutional Vitals: Temp Pulse Resp BP Pulse Ox 98.6 F 76 16 161/61 97 12/29/17 09:03 12/29/17 09:03 12/29/17 09:03 12/29/17 09:03 12/29/17 09:03 General appearance: Present: no acute distress, cachectic, other (looks tired) Results - Labs CBC & Chem 7: 12/29/17 06:06 12/29/17 06:06 Labs: Laboratory Last Values WBC 10.0 K/mm3 (4.5-11.0) 12/29/17 06:06 RBC 3.46 M/mm3 (3.65-5.03) L 12/29/17 06:06 Hgb 10.6 gm/dl (10.1-14.3) 12/29/17 06:06 Hct 31.5 % (30.3-42.9) 12/29/17 06:06 MCV 91 fl (79-97) 12/29/17 06:06 MCH 31 pg (28-32) 12/29/17 06:06 MCHC 34 % (30-34) 12/29/17 06:06 RDW 13.3 % (13.2-15.2) 12/29/17 06:06 Plt Count 407 K/mm3 (140-440) 12/29/17 06:06 Lymph % (Auto) 16.1 % (13.4-35.0) 12/29/17 06:06 [place] % (Auto) 9.3 % (0.0-7.3) H 12/29/17 06:06 Eos % (Auto) 1.5 % (0.0-4.3) 12/29/17 06:06 Baso % (Auto) 0.5 % (0.0-1.8) 12/29/17 06:06 Lymph # 1.6 K/mm3 (1.2-5.4) 12/29/17 06:06 [place] # 0.9 K/mm3 (0.0-0.8) H 12/29/17 06:06 Eos # 0.1 K/mm3 (0.0-0.4) 12/29/17 06:06 Baso # 0.1 K/mm3 (0.0-0.1) 12/29/17 06:06 Add Manual Diff Complete 12/26/17 06:33 Total Counted 100 12/21/17 05:04 Seg Neutrophils % 72.6 % (40.0-70.0) H 12/29/17 06:06 Seg Neuts % (Manual) 66.0 % (40.0-70.0) 12/21/17 05:04 Band Neutrophils % 6.0 % 12/21/17 05:04 Lymphocytes % (Manual) 12.0 % (13.4-35.0) L 12/21/17 05:04 Reactive Lymphs % (Man) 0 % 12/21/17 05:04 Monocytes % (Manual) 15.0 % (0.0-7.3) H 12/21/17 05:04 Eosinophils % (Manual) 0 % (0.0-4.3) 12/21/17 05:04 Basophils % (Manual) 0 % (0.0-1.8) 12/20/17 06:23 Metamyelocytes % 1.0 % 12/21/17 05:04 Myelocytes % 0 % 12/21/17 05:04 Promyelocytes % 0 % 12/21/17 05:04 Blast Cells % 0 % 12/21/17 05:04 Nucleated RBC % Not Reportable 12/21/17 05:04 Seg Neutrophils # 7.3 K/mm3 (1.8-7.7) 12/29/17 06:06 Seg Neutrophils # Man 13.5 K/mm3 (1.8-7.7) H 12/21/17 05:04 Band Neutrophils # 1.2 K/mm3 12/21/17 05:04 Lymphocytes # (Manual) 2.5 K/mm3 (1.2-5.4) 12/21/17 05:04 Abs React Lymphs (Man) 0.0 K/mm3 12/21/17 05:04 Monocytes # (Manual) 3.1 K/mm3 (0.0-0.8) H 12/21/17 05:04 Eosinophils # (Manual) 0.0 K/mm3 (0.0-0.4) 12/21/17 05:04 Basophils # (Manual) 0.0 K/mm3 (0.0-0.1) 12/21/17 05:04 Metamyelocytes # 0.2 K/mm3 12/21/17 05:04 Myelocytes # 0.0 K/mm3 12/21/17 05:04 Promyelocytes # 0.0 K/mm3 12/21/17 05:04 Blast Cells # 0.0 K/mm3 12/21/17 05:04 WBC Morphology Not Reportable 12/21/17 05:04 Hypersegmented Neuts Not Reportable 12/21/17 05:04 Hyposegmented Neuts Not Reportable 12/21/17 05:04 Hypogranular Neuts Not Reportable 12/21/17 05:04 Smudge Cells Not Reportable 12/21/17 05:04 Toxic Granulation Not Reportable 12/21/17 05:04 Toxic Vacuolation Not Reportable 12/21/17 05:04 Dohle Bodies Not Reportable 12/21/17 05:04 Pelger-Huet Anomaly Not Reportable 12/21/17 05:04 Andrei Rods Not Reportable 12/21/17 05:04 Platelet Estimate Appears normal 12/21/17 05:04 Clumped Platelets Not Reportable 12/21/17 05:04 Plt Clumps, EDTA Not Reportable 12/21/17 05:04 Large Platelets Not Reportable 12/21/17 05:04 Giant Platelets Not Reportable 12/21/17 05:04 Platelet Satelliting Not Reportable 12/21/17 05:04 Plt Morphology Comment Not Reportable 12/21/17 05:04 RBC Morphology Not Reportable 12/21/17 05:04 Dimorphic RBCs Not Reportable 12/21/17 05:04 Polychromasia Not Reportable 12/21/17 05:04 Hypochromasia Not Reportable 12/21/17 05:04 Poikilocytosis Not Reportable 12/21/17 05:04 Anisocytosis Not Reportable 12/21/17 05:04 Microcytosis Not Reportable 12/21/17 05:04 Macrocytosis Not Reportable 12/21/17 05:04 Spherocytes Not Reportable 12/21/17 05:04 Pappenheimer Bodies Not Reportable 12/21/17 05:04 Sickle Cells Not Reportable 12/21/17 05:04 Target Cells Not Reportable 12/21/17 05:04 Tear Drop Cells Not Reportable 12/21/17 05:04 Ovalocytes Not Reportable 12/21/17 05:04 Helmet Cells Not Reportable 12/21/17 05:04 [place] Bodies Not Reportable 12/21/17 05:04 [place] Rings Not Reportable 12/21/17 05:04 [place] Cells Not Reportable 12/21/17 05:04 Bite Cells Not Reportable 12/21/17 05:04 Crenated Cell Not Reportable 12/21/17 05:04 Elliptocytes Not Reportable 12/21/17 05:04 Acanthocytes (Spur) Not Reportable 12/21/17 05:04 Rouleaux Not Reportable 12/21/17 05:04 Hemoglobin C Crystals Not Reportable 12/21/17 05:04 Schistocytes Not Reportable 12/21/17 05:04 Malaria parasites Not Reportable 12/21/17 05:04 Chriss Bodies Not Reportable 12/21/17 05:04 Hem Pathologist Commnt No 12/21/17 05:04 PT 16.5 Sec. (12.2-14.9) H 12/18/17 12:10 INR 1.26 (0.87-1.13) H 12/18/17 12:10 POC ABG pH 7.487 (7.35-7.45) H 12/18/17 14:30 POC ABG pCO2 32.6 (35-45) L 12/18/17 14:30 POC ABG pO2 65 (80-105) L 12/18/17 14:30 POC ABG HCO3 24.7 12/18/17 14:30 POC ABG Total CO2 26 12/18/17 14:30 POC ABG O2 Sat 94 12/18/17 14:30 POC ABG Base Excess 1 12/18/17 14:30 VBG pH 7.534 (7.320-7.420) H 12/18/17 12:10 FiO2 28 % 12/18/17 14:30 Sodium 144 mmol/L (137-145) 12/29/17 06:06 Potassium 3.3 mmol/L (3.6-5.0) L 12/29/17 06:06 Chloride 104.1 mmol/L (98-107) 12/29/17 06:06 Carbon Dioxide 28 mmol/L (22-30) 12/29/17 06:06 Anion Gap 15 mmol/L 12/29/17 06:06 BUN 6 mg/dL (7-17) L 12/29/17 06:06 Creatinine 0.7 mg/dL (0.7-1.2) 12/29/17 06:06 Estimated GFR > 60 ml/min 12/29/17 06:06 BUN/Creatinine Ratio 9 % 12/29/17 06:06 Glucose 91 mg/dL (65-100) 12/29/17 06:06 Lactic Acid 1.00 mmol/L (0.7-2.0) 12/19/17 04:36 Calcium 7.7 mg/dL (8.4-10.2) L 12/29/17 06:06 Magnesium 1.90 mg/dL (1.7-2.3) 12/28/17 05:59 Total Bilirubin 0.50 mg/dL (0.1-1.2) 12/19/17 04:36 Direct Bilirubin 0.2 mg/dL (0-0.2) 12/18/17 12:10 Indirect Bilirubin 0.3 mg/dL 12/18/17 12:10 AST 18 units/L (5-40) 12/19/17 04:36 ALT 18 units/L (7-56) 12/19/17 04:36 Alkaline Phosphatase 72 units/L (35-129) 12/19/17 04:36 Total Creatine Kinase 21 units/L (30-135) L 12/18/17 12:10 CK-MB (CK-2) 2.0 ng/mL (0.0-4.0) 12/18/17 12:10 CK-MB (CK-2) Rel Index 9.5 (0-4) H 12/18/17 12:10 Troponin T < 0.010 ng/mL (0.00-0.029) 12/18/17 12:10 NT-Pro-B Natriuret Pep 1948 pg/mL (0-900) H 12/18/17 12:10 Total Protein 6.2 g/dL (6.3-8.2) L 12/19/17 04:36 Albumin 2.4 g/dL (3.9-5) L 12/19/17 04:36 Albumin/Globulin Ratio 0.6 % 12/19/17 04:36 TSH 0.311 mlU/mL (0.270-4.200) 12/20/17 06:23 Free T4 1.66 ng/dL (0.76-1.46) H 12/20/17 06:23 Urine Color Yellow (Yellow) 12/18/17 18:35 Urine Turbidity Clear (Clear) 12/18/17 18:35 Urine pH 5.0 (5.0-7.0) 12/18/17 18:35 Ur Specific [place] 1.021 (1.003-1.030) 12/18/17 18:35 Urine Protein 30 mg/dl mg/dL (Negative) 12/18/17 18:35 Urine Glucose (UA) Neg mg/dL (Negative) 12/18/17 18:35 Urine Ketones Tr mg/dL (Negative) 12/18/17 18:35 Urine Blood Neg (Negative) 12/18/17 18:35 Urine Nitrite Neg (Negative) 12/18/17 18:35 Urine Bilirubin Neg (Negative) 12/18/17 18:35 Urine Urobilinogen < 2.0 mg/dL (<2.0) 12/18/17 18:35 Ur Leukocyte Esterase Neg (Negative) 12/18/17 18:35 Urine WBC (Auto) 2.0 /HPF (0.0-6.0) 12/18/17 18:35 Urine RBC (Auto) 5.0 /HPF (0.0-6.0) 12/18/17 18:35 U Epithel Cells (Auto) < 1.0 /HPF (0-13.0) 12/18/17 18:35 Urine Mucus Few /HPF 12/18/17 18:35 C. difficile Toxin A&B Negative (Negative) 12/23/17 11:40 Blood Type O POSITIVE 12/18/17 12:10 Antibody Screen Negative 12/18/17 12:10
[2017-12-29] MEDS: MUCOMYST INHALATION INHALATION SCH ×2 (09:40→21:23)
[2017-12-29] MEDS: XOPENEX IH SCH ×2 (09:40→21:23)
[2017-12-29] MEDS: ELIQUIS PO SCH (10:00)
[2017-12-29] MEDS: LACTINEX PO SCH ×2 (10:08→21:56)
[2017-12-29] MEDS: MUCINEX ER PO SCH ×2 (10:09→21:55)
--- NOTE | 2017-12-29 10:53 | Progress Note ---
Assessment and Plan - Patient Problems (1) Hypokalemia Current Visit: Yes Status: Acute (2) Paroxysmal atrial fibrillation Current Visit: Yes Status: Acute (3) Pneumonia Current Visit: Yes Status: Acute Qualifiers: Pneumonia type: due to unspecified organism Laterality: bilateral Lung location: lower lobe of lung Qualified Code(s): J18.9 - Pneumonia, unspecified organism Subjective Date of service: 12/29/17 Principal diagnosis: Pneumonia Interval history: SLEEPING,,,FAMILY PRESENT Objective Vital Signs Temp Pulse Pulse Resp Resp BP BP 12/29/17 09:53 12/29/17 09:41 71 20 12/29/17 09:03 98.6 F 76 16 161/61 12/29/17 06:44 96 H 146/72 12/29/17 03:58 98.1 F 96 H 20 146/72 12/29/17 02:19 96 H 12/28/17 23:48 97.7 F 70 20 141/43 12/28/17 23:24 107 H 138/47 12/28/17 22:45 22 12/28/17 19:56 97.8 F 50 L 20 138/47 12/28/17 16:53 98.2 F 104 H 16 179/61 12/28/17 12:18 98.2 F 93 H 20 145/39 Pulse Ox 12/29/17 09:53 97 12/29/17 09:41 12/29/17 09:03 97 12/29/17 06:44 12/29/17 03:58 97 12/29/17 02:19 12/28/17 23:48 98 12/28/17 23:24 12/28/17 22:45 99 12/28/17 19:56 97 12/28/17 16:53 95 12/28/17 12:18 99 - Physical Examination General: No Apparent Distress HEENT: Positive: Pallor Neck: Positive: neck supple Cardiac: Positive: Irregularly Regular Lungs: Positive: Decreased Breath Sounds Neuro: Positive: Weakness Abdomen: Positive: Soft Skin: Positive: Clear Extremities: Absent: edema (NO) - Labs and Meds CBC 12/29/17 Range/Units 06:06 WBC 10.0 (4.5-11.0) K/mm3 RBC 3.46 L (3.65-5.03) M/mm3 Hgb 10.6 (10.1-14.3) gm/dl Hct 31.5 (30.3-42.9) % Plt Count 407 (140-440) K/mm3 Lymph # 1.6 (1.2-5.4) K/mm3 [place] # 0.9 H (0.0-0.8) K/mm3 Eos # 0.1 (0.0-0.4) K/mm3 Baso # 0.1 (0.0-0.1) K/mm3 Comprehensive Metabolic Panel 12/29/17 Range/Units 06:06 Sodium 144 (137-145) mmol/L Potassium 3.3 L (3.6-5.0) mmol/L Chloride 104.1 (98-107) mmol/L Carbon Dioxide 28 (22-30) mmol/L BUN 6 L (7-17) mg/dL Creatinine 0.7 (0.7-1.2) mg/dL Glucose 91 (65-100) mg/dL Calcium 7.7 L (8.4-10.2) mg/dL
[2017-12-29] MEDS: CORDARONE PO SCH (11:10)
[2017-12-29 11:43] LABS: INR 1.17 (0.87-1.13)
[2017-12-29] MEDS ORDERED: LOVENOX SUB-Q SCH (12:00)
--- NOTE | 2017-12-29 16:40 | Progress Note ---
Assessment and Plan Imp: 1. Bronchiectasis on 2010 CT chest (reviewed [facility] images), RML and lingula 2. Pneumonia in setting of #1, doubt aspiration 3. Mild oral dysphagia 4. Acute respiratory failure, hypoxia 5. Mitral stenosis 6. Mild pulm HTN 7. Afib w/ RVR Rec: 1. Cont. Zosyn x ~ 10 days total; sputum culture negative 2. In light of #1 above, added flutter valve BID (d/w RT), Mucinex BID, and mucomyst nebs + Xopenex BID 3. ST evaluation reviewed and appreciated -> follow recs at home 4. PT/OOB/ambulate 5. Lactinex re: diarrhea 6. CT results reviewed with family 7. Afib as per cards 8. Note DNR/DNI status and plans for hospice Plan of care reviewed with patient/family, they understand/agree Subjective Date of service: 12/29/17 Principal diagnosis: Pneumonia Interval history: No events. No Afib/RVR. SOB is better than yesterday. Cough/sputum much improved. Active Medications Acetylcysteine (Mucomyst Inhalation) 200 mg INHALATION Q12HRT [facility] Last Admin: 12/29/17 09:40 Dose: 200 mg Al Hydrox/Mg Hydrox/Simethicone (Alum-Mag Hydrox-Simeth [id number]/5ml) 30 ml PO Q4H PRN PRN Reason: Indigestion Alprazolam (Xanax) 0.25 mg PO Q8H PRN PRN Reason: Anxiety Amiodarone HCl (Cordarone) 200 mg PO BID [facility] Last Admin: 12/29/17 11:10 Dose: 200 mg Atorvastatin Calcium (Lipitor) 20 mg PO Th [facility] Last Admin: 12/26/17 22:19 Dose: 20 mg Atorvastatin Calcium (Lipitor) 20 mg PO Foster [facility] Bisacodyl (Dulcolax) 10 mg VA QDAY PRN PRN Reason: constipation unrelieved by MOM Diltiazem HCl (Cardizem) 30 mg PO Q8HR [facility] Last Admin: 12/29/17 13:10 Dose: 30 mg Diphenoxylate HCl/Atropine (Lomotil) 1 tab PO Q6H PRN PRN Reason: Diarrhea Last Admin: 12/24/17 14:54 Dose: 1 tab Enoxaparin Sodium (Lovenox) 30 mg SUB-Q Q24H [facility] Last Admin: 12/29/17 13:00 Dose: 30 mg Guaifenesin (Mucinex Er) 600 mg PO BID [facility] Last Admin: 12/29/17 10:09 Dose: 600 mg Hydromorphone HCl (Dilaudid) 0.5 mg IV Q3H PRN PRN Reason: Pain , Severe (7-10) Piperacillin Sod/Tazobactam Sod (Zosyn/Ns 4.5gm/100ml) 4.5 gm in 100 mls @ 200 mls/hr IV Q8H [facility] PRN Reason: Protocol Last Admin: 12/29/17 10:29 Dose: 200 mls/hr Lactobacillus Acidophilus (Lactinex) 1 each PO BID [facility] Last Admin: 12/29/17 10:08 Dose: 1 each Levalbuterol HCl (Xopenex) 1.25 mg IH BIDRT [facility] Last Admin: 12/29/17 09:40 Dose: 1.25 mg Levothyroxine Sodium (Synthroid) 37 mcg PO DAILY@0600 [facility] Magnesium Hydroxide (Milk Of Magnesia) 30 ml PO Q4H PRN PRN Reason: Constipation Metoprolol Tartrate (Lopressor) 2.5 mg IV Q4HR PRN PRN Reason: HR >130 Last Admin: 12/26/17 10:43 Dose: 2.5 mg Metronidazole (Flagyl) 500 mg PO Q8HR [facility] Last Admin: 12/29/17 13:11 Dose: 500 mg Morphine Sulfate (Morphine) 4 mg IV Q4H PRN PRN Reason: Pain , Severe (7-10) Ondansetron HCl (Zofran) 4 mg IV Q6H PRN PRN Reason: Nausea And Vomiting Last Admin: 12/25/17 00:13 Dose: 4 mg Oxycodone/Acetaminophen (Percocet 5/325) 1 tab PO Q6H PRN PRN Reason: Pain, Moderate (4-6) Last Admin: 12/23/17 22:59 Dose: 1 tab Warfarin Sodium (Coumadin Pharmacy To Dose) 1 each PO PKCONSULT [facility] PRN Reason: Protocol Warfarin Sodium (Coumadin) 5 mg PO DAILY@1700 [facility] Objective Vital Signs - 12hr 02/25/18 02/25/18 02/25/18 06:44 09:03 09:41 Temperature 98.6 F Pulse Rate 96 H 76 Pulse Rate [ 71 Anterior Bilateral Throughout] Respiratory 16 Rate Respiratory 20 Rate [Anterior Bilateral Throughout] Blood Pressure 146/72 Blood Pressure 161/61 [Right] O2 Sat by Pulse 97 Oximetry 12/29/17 12/29/17 12/29/17 09:53 12:11 13:10 Temperature 97.7 F Pulse Rate 72 72 Pulse Rate [ Anterior Bilateral Throughout] Respiratory 21 Rate Respiratory Rate [Anterior Bilateral Throughout] Blood Pressure 156/74 Blood Pressure 156/74 [Right] O2 Sat by Pulse 97 94 Oximetry 12/29/17 12/29/17 13:13 15:21 Temperature Pulse Rate 96 H Pulse Rate [ Anterior Bilateral Throughout] Respiratory 18 Rate Respiratory Rate [Anterior Bilateral Throughout] Blood Pressure Blood Pressure [Right] O2 Sat by Pulse 97 Oximetry Constitutional: no acute distress, asleep Eyes: non-icteric ENT: oropharynx moist Neck: supple Effort: normal Ascultation: Bilateral: rales (better), rhonchi (better) Percussion: Bilateral: not dull Tactile fremitus: Bilateral: normal Cardiovascular: irregular rhythm (no mrg) Gastrointestinal: normoactive bowel sounds, soft, non-tender Integumentary: normal Extremities: no cyanosis, no edema, pink and warm Neurologic: normal mental status, non-focal exam Psychiatric: mood appropriate, affect normal CBC and BMP: 12/29/17 06:06 12/29/17 06:06 ABG, PT/INR, D-dimer: ABG POC ABG pH 7.487 (7.35-7.45) H 12/18/17 14:30 POC ABG pCO2 32.6 (35-45) L 12/18/17 14:30 POC ABG pO2 65 (80-105) L 12/18/17 14:30 POC ABG HCO3 24.7 12/18/17 14:30 POC ABG Total CO2 26 12/18/17 14:30 POC ABG O2 Sat 94 12/18/17 14:30 PT/INR, D-dimer PT 15.5 Sec. (12.2-14.9) H 12/29/17 11:18 INR 1.17 (0.87-1.13) H 12/29/17 11:18 Abnormal lab findings: Abnormal Labs 12/18/17 12/18/17 12/18/17 12:10 12:10 12:10 WBC 24.0 H RBC RDW 13.0 L Plt Count 460 H [place] % (Auto) [place] # Seg Neutrophils % Seg Neuts % (Manual) 84.0 H Lymphocytes % (Manual) 2.0 L Monocytes % (Manual) Seg Neutrophils # Seg Neutrophils # Man 20.2 H Lymphocytes # (Manual) 0.5 L Monocytes # (Manual) 1.4 H PT INR POC ABG pH POC ABG pCO2 POC ABG pO2 VBG pH Sodium Potassium Carbon Dioxide BUN 23 H Creatinine 0.6 L Glucose 140 H Lactic Acid 2.20 H* Calcium 8.0 L Magnesium Total Creatine Kinase CK-MB (CK-2) Rel Index NT-Pro-B Natriuret Pep Total Protein 5.8 L Albumin 3.0 L Free T4 12/18/17 12/18/17 12/18/17 12:10 12:10 12:10 WBC RBC RDW Plt Count [place] % (Auto) [place] # Seg Neutrophils % Seg Neuts % (Manual) Lymphocytes % (Manual) Monocytes % (Manual) Seg Neutrophils # Seg Neutrophils # Man Lymphocytes # (Manual) Monocytes # (Manual) PT 16.5 H INR 1.26 H POC ABG pH POC ABG pCO2 POC ABG pO2 VBG pH Sodium Potassium Carbon Dioxide BUN Creatinine Glucose Lactic Acid Calcium Magnesium 1.60 L Total Creatine Kinase 21 L CK-MB (CK-2) Rel Index 9.5 H NT-Pro-B Natriuret Pep 1948 H Total Protein Albumin Free T4 12/18/17 12/18/17 12/19/17 12:10 14:30 04:36 WBC 20.3 H RBC RDW Plt Count [place] % (Auto) [place] # Seg Neutrophils % Seg Neuts % (Manual) 90.0 H Lymphocytes % (Manual) 5.0 L Monocytes % (Manual) Seg Neutrophils # Seg Neutrophils # Man 18.3 H Lymphocytes # (Manual) 1.0 L Monocytes # (Manual) PT INR POC ABG pH 7.487 H POC ABG pCO2 32.6 L POC ABG pO2 65 L VBG pH 7.534 H Sodium Potassium Carbon Dioxide BUN Creatinine Glucose Lactic Acid Calcium Magnesium Total Creatine Kinase CK-MB (CK-2) Rel Index NT-Pro-B Natriuret Pep Total Protein Albumin Free T4 12/19/17 12/20/17 12/20/17 04:36 06:23 06:23 WBC 19.3 H RBC RDW 13.1 L Plt Count [place] % (Auto) [place] # Seg Neutrophils % Seg Neuts % (Manual) 96.0 H Lymphocytes % (Manual) 2.0 L Monocytes % (Manual) Seg Neutrophils # Seg Neutrophils # Man 18.5 H Lymphocytes # (Manual) 0.4 L Monocytes # (Manual) PT INR POC ABG pH POC ABG pCO2 POC ABG pO2 VBG pH Sodium Potassium Carbon Dioxide BUN 24 H Creatinine Glucose 146 H Lactic Acid Calcium 7.8 L 7.9 L Magnesium Total Creatine Kinase CK-MB (CK-2) Rel Index NT-Pro-B Natriuret Pep Total Protein 6.2 L Albumin 2.4 L Free T4 12/20/17 12/21/17 12/24/17 06:23 05:04 06:05 WBC 20.5 H 14.5 H RBC 3.57 L RDW 12.8 L 12.9 L Plt Count [place] % (Auto) 7.8 H [place] # 1.1 H Seg Neutrophils % 75.4 H Seg Neuts % (Manual) Lymphocytes % (Manual) 12.0 L Monocytes % (Manual) 15.0 H Seg Neutrophils # 11.0 H Seg Neutrophils # Man 13.5 H Lymphocytes # (Manual) Monocytes # (Manual) 3.1 H PT INR POC ABG pH POC ABG pCO2 POC ABG pO2 VBG pH Sodium Potassium Carbon Dioxide BUN Creatinine Glucose Lactic Acid Calcium Magnesium Total Creatine Kinase CK-MB (CK-2) Rel Index NT-Pro-B Natriuret Pep Total Protein Albumin Free T4 1.66 H 12/24/17 12/26/17 12/26/17 06:05 06:33 06:33 WBC 12.9 H RBC 3.63 L RDW Plt Count [place] % (Auto) 7.8 H [place] # 1.0 H Seg Neutrophils % 75.7 H Seg Neuts % (Manual) Lymphocytes % (Manual) Monocytes % (Manual) Seg Neutrophils # 9.8 H Seg Neutrophils # Man Lymphocytes # (Manual) Monocytes # (Manual) PT INR POC ABG pH POC ABG pCO2 POC ABG pO2 VBG pH Sodium 146 H Potassium Carbon Dioxide 32 H D BUN Creatinine 0.6 L Glucose Lactic Acid Calcium 7.6 L 7.8 L Magnesium Total Creatine Kinase CK-MB (CK-2) Rel Index NT-Pro-B Natriuret Pep Total Protein Albumin Free T4 12/28/17 12/28/17 12/29/17 05:59 05:59 06:06 WBC 11.9 H RBC 3.46 L RDW 13.0 L Plt Count [place] % (Auto) 9.8 H 9.3 H [place] # 1.2 H 0.9 H Seg Neutrophils % 72.6 H Seg Neuts % (Manual) Lymphocytes % (Manual) Monocytes % (Manual) Seg Neutrophils # 7.9 H Seg Neutrophils # Man Lymphocytes # (Manual) Monocytes # (Manual) PT INR POC ABG pH POC ABG pCO2 POC ABG pO2 VBG pH Sodium Potassium 3.2 L Carbon Dioxide 31 H BUN Creatinine Glucose Lactic Acid Calcium 8.0 L Magnesium Total Creatine Kinase CK-MB (CK-2) Rel Index NT-Pro-B Natriuret Pep Total Protein Albumin Free T4 12/29/17 12/29/17 06:06 11:18 WBC RBC RDW Plt Count [place] % (Auto) [place] # Seg Neutrophils % Seg Neuts % (Manual) Lymphocytes % (Manual) Monocytes % (Manual) Seg Neutrophils # Seg Neutrophils # Man Lymphocytes # (Manual) Monocytes # (Manual) PT 15.5 H INR 1.17 H POC ABG pH POC ABG pCO2 POC ABG pO2 VBG pH Sodium Potassium 3.3 L Carbon Dioxide BUN 6 L Creatinine Glucose Lactic Acid Calcium 7.7 L Magnesium Total Creatine Kinase CK-MB (CK-2) Rel Index NT-Pro-B Natriuret Pep Total Protein Albumin Free T4 Chest x-ray: report reviewed, image reviewed CT scan - chest: report reviewed, image reviewed (severe bronchiectasis and some scarring RML and lingula, RLL densities which could represent pneumonia, and small pleural effusions)
[2017-12-29] MEDS ORDERED: COUMADIN PO SCH ×2 (17:00)
[2017-12-30] MEDS: CORDARONE PO SCH ×2 (00:54→10:45)
[2017-12-30] MEDS: ZOSYN/NS 4.5GM/100ML 4.5 GM/100 ML VIAL IV SCH ×2 (02:40→11:45)
[2017-12-30] MEDS ORDERED: SYNTHROID PO SCH (06:00)
[2017-12-30 06:04] LABS: INR 1.69 (0.87-1.13)
[2017-12-30] MEDS: XOPENEX IH SCH (07:57)
[2017-12-30] MEDS: MUCOMYST INHALATION INHALATION SCH (07:57)
[2017-12-30] MEDS: FLAGYL PO SCH ×2 (08:09→15:00)
[2017-12-30] MEDS: CARDIZEM PO SCH ×2 (08:11→14:12)
[2017-12-30] MEDS: LACTINEX PO SCH (10:45)
[2017-12-30] MEDS: MUCINEX ER PO SCH (10:45)
--- NOTE | 2017-12-30 11:19 | Progress Note ---
Assessment and Plan Pneumonia History of multiple admissions for pneumonia recently Biapical scarring and pleural thickening on CXR suggesting underlying pulmonary fibrosis Paroxysmal atrial fibrillation currently in sinus rhythm on diltiazem and amiodarone switched to warfarin for oral anticoagulation Normal LVEF by echo with mild to moderate mitral stenosis. Thyroid disorder Systemic Hypertension Hyperlipidemia AND/DNR status Continue diltiazem, amiodarone and oral anticoagulation for paroxysmal atrial fibrillation. Subjective Date of service: 12/30/17 Principal diagnosis: Pneumonia Interval history: Now AND/DNR status. Awaits hospice placement. Objective Vital Signs Temp Pulse Pulse Pulse Pulse Resp Resp 12/30/17 08:11 94 H 12/30/17 08:08 12/30/17 07:56 12/30/17 03:31 98.3 F 63 18 12/29/17 23:55 98.2 F 58 L 18 12/29/17 22:00 12/29/17 21:53 58 L 12/29/17 21:44 55 L 16 12/29/17 21:23 51 L 16 12/29/17 19:24 97.9 F 51 L 18 12/29/17 17:44 98.5 F 57 L 16 12/29/17 15:21 78 78 18 12/29/17 13:13 96 H 12/29/17 13:10 72 12/29/17 12:11 97.7 F 72 21 BP BP Pulse Ox 12/30/17 08:11 124/54 12/30/17 08:08 124/54 12/30/17 07:56 95 12/30/17 03:31 153/50 97 12/29/17 23:55 127/43 98 12/29/17 22:00 97 12/29/17 21:53 139/58 12/29/17 21:44 12/29/17 21:23 98 12/29/17 19:24 141/40 97 12/29/17 17:44 147/47 97 12/29/17 15:21 97 12/29/17 13:13 12/29/17 13:10 156/74 12/29/17 12:11 156/74 94 - Physical Examination General: No Apparent Distress HEENT: Positive: Pallor Cardiac: Positive: Reg Rate and Rhythm Neuro: Positive: Weakness - Labs and Meds Coagulation 12/29/17 12/30/17 Range/Units 11:18 05:37 PT 15.5 H 20.9 H (12.2-14.9) Sec. INR 1.17 H 1.69 H (0.87-1.13)
--- NOTE | 2017-12-30 12:13 | Progress Note ---
Assessment and Plan 87 y/o female with afib with RVR, subsequent fluid overload with right lower lobe infiltrate, residual pneumonia from prior diagnosis. 1. I stopped abx therapy. Has had more than 10 days. Currently on Flagyl, but no sure what that is for 2. Afib and anticoagulation per cards 3. Agree with airway clearance mechanisms, but I stopped mucinex today, was not given this am. 4. Would also consider stopping xoponex therapy. Patient did not do well with bronchodilator therapy prior to this while in house, actually felt worse on neb treatments. Will continue to follow along with you. Subjective Date of service: 12/30/17 Principal diagnosis: Pneumonia Interval history: No acute events. INR not therapeutic. Objective Vital Signs - 12hr 12/30/17 12/30/17 12/30/17 03:31 07:56 08:08 Temperature 98.3 F Pulse Rate 63 Respiratory 18 Rate Blood Pressure 153/50 124/54 O2 Sat by Pulse 97 95 Oximetry 12/30/17 08:11 Temperature Pulse Rate 94 H Respiratory Rate Blood Pressure 124/54 O2 Sat by Pulse Oximetry Constitutional: no acute distress, asleep Eyes: non-icteric ENT: oropharynx moist Neck: supple Effort: normal Ascultation: Left: clear, Bilateral: rales (better), rhonchi (better) Percussion: Bilateral: not dull Tactile fremitus: Bilateral: normal Cardiovascular: irregular rhythm (no mrg) Gastrointestinal: normoactive bowel sounds, soft, non-tender Integumentary: normal Extremities: no cyanosis, no edema, pink and warm Neurologic: normal mental status, non-focal exam Psychiatric: mood appropriate, affect normal CBC and BMP: 12/29/17 06:06 12/29/17 06:06 ABG, PT/INR, D-dimer: ABG POC ABG pH 7.487 (7.35-7.45) H 12/18/17 14:30 POC ABG pCO2 32.6 (35-45) L 12/18/17 14:30 POC ABG pO2 65 (80-105) L 12/18/17 14:30 POC ABG HCO3 24.7 12/18/17 14:30 POC ABG Total CO2 26 12/18/17 14:30 POC ABG O2 Sat 94 12/18/17 14:30 PT/INR, D-dimer PT 20.9 Sec. (12.2-14.9) H 12/30/17 05:37 INR 1.69 (0.87-1.13) H 12/30/17 05:37 Abnormal lab findings: Abnormal Labs 12/18/17 12/18/17 12/18/17 12:10 12:10 12:10 WBC 24.0 H RBC RDW 13.0 L Plt Count 460 H [place] % (Auto) [place] # Seg Neutrophils % Seg Neuts % (Manual) 84.0 H Lymphocytes % (Manual) 2.0 L Monocytes % (Manual) Seg Neutrophils # Seg Neutrophils # Man 20.2 H Lymphocytes # (Manual) 0.5 L Monocytes # (Manual) 1.4 H PT INR POC ABG pH POC ABG pCO2 POC ABG pO2 VBG pH Sodium Potassium Carbon Dioxide BUN 23 H Creatinine 0.6 L Glucose 140 H Lactic Acid 2.20 H* Calcium 8.0 L Magnesium Total Creatine Kinase CK-MB (CK-2) Rel Index NT-Pro-B Natriuret Pep Total Protein 5.8 L Albumin 3.0 L Free T4 12/18/17 12/18/17 12/18/17 12:10 12:10 12:10 WBC RBC RDW Plt Count [place] % (Auto) [place] # Seg Neutrophils % Seg Neuts % (Manual) Lymphocytes % (Manual) Monocytes % (Manual) Seg Neutrophils # Seg Neutrophils # Man Lymphocytes # (Manual) Monocytes # (Manual) PT 16.5 H INR 1.26 H POC ABG pH POC ABG pCO2 POC ABG pO2 VBG pH Sodium Potassium Carbon Dioxide BUN Creatinine Glucose Lactic Acid Calcium Magnesium 1.60 L Total Creatine Kinase 21 L CK-MB (CK-2) Rel Index 9.5 H NT-Pro-B Natriuret Pep 1948 H Total Protein Albumin Free T4 12/18/17 12/18/17 12/19/17 12:10 14:30 04:36 WBC 20.3 H RBC RDW Plt Count [place] % (Auto) [place] # Seg Neutrophils % Seg Neuts % (Manual) 90.0 H Lymphocytes % (Manual) 5.0 L Monocytes % (Manual) Seg Neutrophils # Seg Neutrophils # Man 18.3 H Lymphocytes # (Manual) 1.0 L Monocytes # (Manual) PT INR POC ABG pH 7.487 H POC ABG pCO2 32.6 L POC ABG pO2 65 L VBG pH 7.534 H Sodium Potassium Carbon Dioxide BUN Creatinine Glucose Lactic Acid Calcium Magnesium Total Creatine Kinase CK-MB (CK-2) Rel Index NT-Pro-B Natriuret Pep Total Protein Albumin Free T4 12/19/17 12/20/17 12/20/17 04:36 06:23 06:23 WBC 19.3 H RBC RDW 13.1 L Plt Count [place] % (Auto) [place] # Seg Neutrophils % Seg Neuts % (Manual) 96.0 H Lymphocytes % (Manual) 2.0 L Monocytes % (Manual) Seg Neutrophils # Seg Neutrophils # Man 18.5 H Lymphocytes # (Manual) 0.4 L Monocytes # (Manual) PT INR POC ABG pH POC ABG pCO2 POC ABG pO2 VBG pH Sodium Potassium Carbon Dioxide BUN 24 H Creatinine Glucose 146 H Lactic Acid Calcium 7.8 L 7.9 L Magnesium Total Creatine Kinase CK-MB (CK-2) Rel Index NT-Pro-B Natriuret Pep Total Protein 6.2 L Albumin 2.4 L Free T4 12/20/17 12/21/17 12/24/17 06:23 05:04 06:05 WBC 20.5 H 14.5 H RBC 3.57 L RDW 12.8 L 12.9 L Plt Count [place] % (Auto) 7.8 H [place] # 1.1 H Seg Neutrophils % 75.4 H Seg Neuts % (Manual) Lymphocytes % (Manual) 12.0 L Monocytes % (Manual) 15.0 H Seg Neutrophils # 11.0 H Seg Neutrophils # Man 13.5 H Lymphocytes # (Manual) Monocytes # (Manual) 3.1 H PT INR POC ABG pH POC ABG pCO2 POC ABG pO2 VBG pH Sodium Potassium Carbon Dioxide BUN Creatinine Glucose Lactic Acid Calcium Magnesium Total Creatine Kinase CK-MB (CK-2) Rel Index NT-Pro-B Natriuret Pep Total Protein Albumin Free T4 1.66 H 12/24/17 12/26/17 12/26/17 06:05 06:33 06:33 WBC 12.9 H RBC 3.63 L RDW Plt Count [place] % (Auto) 7.8 H [place] # 1.0 H Seg Neutrophils % 75.7 H Seg Neuts % (Manual) Lymphocytes % (Manual) Monocytes % (Manual) Seg Neutrophils # 9.8 H Seg Neutrophils # Man Lymphocytes # (Manual) Monocytes # (Manual) PT INR POC ABG pH POC ABG pCO2 POC ABG pO2 VBG pH Sodium 146 H Potassium Carbon Dioxide 32 H D BUN Creatinine 0.6 L Glucose Lactic Acid Calcium 7.6 L 7.8 L Magnesium Total Creatine Kinase CK-MB (CK-2) Rel Index NT-Pro-B Natriuret Pep Total Protein Albumin Free T4 12/28/17 12/28/17 12/29/17 05:59 05:59 06:06 WBC 11.9 H RBC 3.46 L RDW 13.0 L Plt Count [place] % (Auto) 9.8 H 9.3 H [place] # 1.2 H 0.9 H Seg Neutrophils % 72.6 H Seg Neuts % (Manual) Lymphocytes % (Manual) Monocytes % (Manual) Seg Neutrophils # 7.9 H Seg Neutrophils # Man Lymphocytes # (Manual) Monocytes # (Manual) PT INR POC ABG pH POC ABG pCO2 POC ABG pO2 VBG pH Sodium Potassium 3.2 L Carbon Dioxide 31 H BUN Creatinine Glucose Lactic Acid Calcium 8.0 L Magnesium Total Creatine Kinase CK-MB (CK-2) Rel Index NT-Pro-B Natriuret Pep Total Protein Albumin Free T4 12/29/17 12/29/17 12/30/17 06:06 11:18 05:37 WBC RBC RDW Plt Count [place] % (Auto) [place] # Seg Neutrophils % Seg Neuts % (Manual) Lymphocytes % (Manual) Monocytes % (Manual) Seg Neutrophils # Seg Neutrophils # Man Lymphocytes # (Manual) Monocytes # (Manual) PT 15.5 H 20.9 H INR 1.17 H 1.69 H POC ABG pH POC ABG pCO2 POC ABG pO2 VBG pH Sodium Potassium 3.3 L Carbon Dioxide BUN 6 L Creatinine Glucose Lactic Acid Calcium 7.7 L Magnesium Total Creatine Kinase CK-MB (CK-2) Rel Index NT-Pro-B Natriuret Pep Total Protein Albumin Free T4
--- NOTE | 2017-12-30 13:38 | Discharge Summary ---
Providers - Providers Date of Admission: 12/18/17 15:07 Attending physician: GERARDO HARRIS MD 12/18/17 14:01 Consult to Physician [CONS] Urgent Consulting Provider: EDGARDO LUGO Reason For Exam: respiratory distress Notified:: yes 12/19/17 04:19 Consult to Dietitian/Nutrition [CONS] Routine Physician Instructions: Reason For Exam: Reason for Consult: Pt needs oral supplement 12/19/17 18:47 Consult to Physician [CONS] Routine Consulting Provider: INOCENTE CAMARA Reason For Exam: afib with RVR Place consult to:: Dr Juarez Notified:: Dr Juarez Phone number called:: in house Was contact made?: Yes If yes, spoke with:: Dr juarez Time called:: 08:47 12/23/17 09:51 Physical Therapy Evaluation and Treat [CONS] Routine Comment: Reason For Exam: gen debility /copd 12/23/17 15:41 Speech Therapy Evaluation and Treat [CONS] Routine Reason For Exam: Recurrent pneumonia, dysphagia Primary care physician: KATT JACOBSEN Hospitalization Reason for admission: shortness of breath Condition: Stable Hospital course: 87 y/o female, recently discharge from [facility] with a diagnosis of pneumonia on this past Saturday. Per daughter at bedside, patient woke up on Saturday morning in Afib with RVR and worsening shortness of breath. Transported to the ED via EMS. Patient was started on oxygen and given IV abx. Per patient pneumonia was in the right lower lobe at [place], which is consistent with here. Patient was subsequently transferred out of the ICU continued to weaken. Cardiology pulmonary on the case of excessive management and treatment the family opted for hospice. Her sugars have completed antibiotics more than 10 days and also was noted on the last day to have a reaction to likely antibiotics Medication added was Coumadin which the hospital course the place of Eliquis. Benadryl was given prescription and did not have any worsening of shortness of breath.. Currently on 40% ventimask and stable. --A. fib with rapid ventricular rate; --Right lower lobe pneumonia; --Acute hypoxic respiratory failure; --Bronchiectasis --Dyslipidemia; -- hypothyroidism --Hypertension; --Diarrhea;Resolved, C. 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 Disposition: [id number] (MED FACILITY) Time spent for discharge: 35 MINS Core Measure Documentation - Palliative Care Palliative Care/ Comfort Measures: Not Applicable - Core Measures Any of the following diagnoses?: none - VTE Discharge Requirements Deep Vein Thrombosis/Pulmonary Embolism Present on Admission: No Exam - Physical Exam Narrative exam: General appearance: Present: no acute distress, cachectic, other (frail) - EENT Eyes: Present: PERRL, EOM intact - Neck Neck: Present: supple, normal ROM - Respiratory Respiratory effort: normal Respiratory: bilateral: diminished, negative: rales, rhonchi, wheezing - Cardiovascular Rhythm: regular Heart Sounds: Present: S1 & S2 - Extremities Extremities: no ischemia, No edema - Abdominal General gastrointestinal: soft, non-tender, non-distended, normal bowel sounds - Integumentary Integumentary: Present: clear, warm - Psychiatric Psychiatric: appropriate mood/affect, cooperative - Neurologic Neurologic: CNII-XII intact, moves all extremities - Constitutional Vitals: Temp Pulse Resp BP Pulse Ox 98.3 F 94 H 18 124/54 95 12/30/17 03:31 12/30/17 08:11 12/30/17 03:31 12/30/17 08:11 12/30/17 07:56 Plan Activity: advance as tolerated, fall precautions Diet: low salt Special Instructions: record daily weights, record daily BP diary Additional Instructions: Follow-up appointments per hospice team. INR CHECK PER HOSPICE Follow up with: PRIMARY CARE, [Referring] - 3-5 Days Forms: Warfarin Discharge Instruction Prescriptions: ALPRAZolam [Xanax TAB] 0.25 mg PO Q8H PRN #30 tablet PRN Reason: Anxiety Amiodarone [Cordarone 200 MG TAB] 200 mg PO BID #60 tablet AtorvaSTATin [Lipitor] 20 mg PO [place] #30 tablet Diltiazem [Cardizem] 30 mg PO Q8HR #90 tablet Diphenoxylate/Atropine [Lomotil] 1 tab PO Q6H PRN #30 tablet PRN Reason: Diarrhea Lactobacillus Acidophil [Lactinex] 1 each PO BID #30 tab.chew Levothyroxine [Synthroid] 37 mcg PO DAILY@0600 #30 tablet oxyCODONE /ACETAMINOPHEN [Percocet 5/325 mg] 1 tab PO Q6H PRN #14 tablet PRN Reason: Pain, Moderate (4-6) Warfarin [Coumadin] 5 mg PO DAILY@1700 #30 tablet
[2017-12-30 13:50] VITALS: BP 137/54
== END 2017-12-30 16:18 | disposition hospice, inpatient (51) | DRG 871 ==
LOC: ED 11:33 → CC1 15:07 → 4A 12-19 23:26
PROVIDERS: ADMIT Internal Medicine; ATTEND Internal Medicine
PROC: 4A033R1 Measurement of Arterial Saturation, Peripheral, Percutaneous Approach (ICD-10-PCS; principal; 2017-12-18)
DX: A41.9 Sepsis, unspecified organism (principal); J18.1 Lobar pneumonia, unspecified organism; J96.01 Acute respiratory failure with hypoxia; J44.0 Chronic obstructive pulmonary disease with (acute) lower respiratory infection; E03.9 Hypothyroidism, unspecified; E78.5 Hyperlipidemia, unspecified; I48.0 Paroxysmal atrial fibrillation; R13.12 Dysphagia, oropharyngeal phase; I27.20 Pulmonary hypertension, unspecified; I05.0 Rheumatic mitral stenosis; E07.9 Disorder of thyroid, unspecified; I10 Essential (primary) hypertension; I48.91 Unspecified atrial fibrillation; Z82.49 Family history of ischemic heart disease and other diseases of the circulatory system; Z86.711 Personal history of pulmonary embolism; Z79.01 Long term (current) use of anticoagulants; Z79.899 Other long term (current) drug therapy
CPT/HCPCS: 36415; 71045; 71250; 74230; 80048; 80053; 80074; 81001; 82140; 82550; 82553; 82803; 82805; 83735; 83880; 84439; 84443; 84484; 85007; 85025; 85610; 86850; 86900; 86901; 87040; 87070; 87086; 87205; 87324; 93005; 93010; 93306; 94640; 94644; 94760; 99291; A9270-GY; G8978-GP; G8979-GP; G8996-GN; G8997-GN; G8998-GN; J0282; J0696; J1650; J1940; J2405; J2543; J2920; J2930; J3370; J3475; J7030; J7040; J7050; J7060